=== PATIENT | female | born 1970 | race Caucasian/White ===

== ENCOUNTER 2023-02-14 09:34 | Inpatient (IN) | payer BC ==
[~2023-02-14] VITALS: Ht 160 cm; Wt 163.8 kg
[2023-02-14] MEDS ORDERED: diphenhydrAMINE 25 MG TAB (BENADRYL) PO PRN (13:00)
[2023-02-14] MEDS ORDERED: ALPRAZolam 0.25 MG (XANAX) TAB PO PRN (13:00)
[2023-02-14] MEDS ORDERED: MELATONIN 3 MG TABLET PO PRN (13:00)
[2023-02-14] MEDS ORDERED: BISACODYL 10 MG SUPP (DULCOLAX) PR PRN (13:00)
[2023-02-14] MEDS ORDERED: DOCUSATE SODIUM 100 MG (COLACE) CAP PO PRN (13:00)
[2023-02-14] MEDS ORDERED: FLEET ENEMA ADULT 1 EA BTL PR PRN (13:00)
[2023-02-14] MEDS ORDERED: CALCIUM CARBONATE 500 MG (TUMS) TAB.CHEW PO PRN (13:00)
[2023-02-14] MEDS ORDERED: guaiFENesin/CODEINE (ROBITUSSIN AC) 10ML UDC PO PRN (13:00)
[2023-02-14] MEDS ORDERED: LOPERAMIDE 2 MG (IMODIUM) TABLET PO PRN (13:00)
[2023-02-14] MEDS ORDERED: LACTULOSE SYRUP 10GM/15ML (ENULOSE) 30ML UDC PO PRN (13:00)
--- NOTE | 2023-02-14 13:01 | PM&R Post Admission Assessment ---
PM&R HP Date of Visit: Feb 14, 2023 Time of Visit: 19:00 History of Present Illness CC: Debility following hepatic encephalopathy episode HPI: This is a 52yoWF clinic patient of liver transplant department who presents to ARU from [facility] in [place] via EMS following a long stay in acute care due to DAVID from hypovolemia and hyponatremia with septic shock from integumentary wounds requiring pressor therapy. Apparently she is on the liver transplant list. She has a long history of SALCIDO causing cirrhosis. She did have an episode of AF RVR converted to NSR 02/06 but remains on Coumadin for CVA PPx. Patient will remain on Kelfex to complete abx for bacteremia. Currently she has no pain. CPAP will be brought by family in [place] and she lives alone in [place]. 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 Past Gnsuibb-Impfpe-Imkviu Hx Past Med/Social Hx: Reviewed Nursing Past Med/Soc Hx, Reviewed and Corrections made Patient Social History Marrital Status: single Employed/Student: employed Alcohol Use: Denies Use Smoking Status: Never a Smoker Past Medical History Respiratory: Sleep Apnea Currently Using CPAP: Yes Currently Using BIPAP: No Cardiac: Atrial Fibrillation, High Cholesterol, Hypertension Genitourinary: Renal Failure Gastrointestinal: Cirrhosis Musculoskeletal: Arthritis, Chronic Back Pain Endocrine: Diabetes, Insulin dep PM&R Allergy/Meds/Data Review Allergies Coded Allergies: No Allergy Information Available (Unverified , 02/14/23) Home Medications Scheduled Bumetanide (Bumetanide), 1 MG PO DAILY, (Reported) Citalopram Hydrobromide (Citalopram HBr), 20 MG PO DAILY, (Reported) Dulaglutide (Trulicity), 3 MG SQ WEEK, (Reported) Insulin Aspart (Insulin Aspart), 4 UNIT SQ AC, (Reported) Insulin Determir (Levemir), 12 UNITS SQ HS, (Reported) Lactulose (Lactulose), 30 ML PO DAILY, (Reported) Levothyroxine Sodium (Levothyroxine Sodium), 112 MCG PO DAILY, (Reported) Metoprolol Tartrate (Metoprolol Tartrate), 12.5 MG PO BID, (Reported) Midodrine HCl (Midodrine HCl), 10 MG PO Q8H, (Reported) Pantoprazole Sodium (Pantoprazole Sodium), 40 MG PO DAILY BEFORE BREAKFAST, (Reported) Rifaximin (Xifaxan), 550 MG PO Q12H, (Reported) Spironolactone (Spironolactone), 150 MG PO DAILY, (Reported) Warfarin Sodium (Warfarin Sodium), 2 MG PO DAILY, (Reported) Scheduled PRN Acetaminophen (Tylenol 8 Hour), 650 MG PO Q6H PRN for PAIN-MILD (1-4), (Reported ) Current Medications Current Medications Reviewed Review of Systems Constitutional: see HPI, dizziness, malaise, weakness EENTM: no symptoms reported Respiratory: no symptoms reported Cardiovascular: no symptoms reported Gastrointestinal: no symptoms reported Physical Exam Physical Exam Vital Signs Capillary Refill : Height, Weight, BMI Height: '" Weight: lbs. oz. kg; BMI Method: General Appearance: No Apparent Distress, WD/WN, Chronically ill, Obese, Other (jaundiced) Eyes: Bilateral Eye Normal Inspection, Bilateral Eye PERRL HEENT: PERRL/EOMI, Normal ENT Inspection, Pharynx Normal Neck: Full Range of Motion, Normal Inspection, Non Tender, Supple, Carotid Bruit Respiratory: Chest Non Tender, Lungs Clear, Normal Breath Sounds, No Accessory Muscle Use, No Respiratory Distress Cardiovascular: Regular Rate, Rhythm, No Edema, No Gallop, No JVD, No Murmur, Normal Peripheral Pulses Gastrointestinal: Normal Bowel Sounds, No Organomegaly, No Pulsatile Mass, Non Tender, Soft Back: Normal Inspection, No CVA Tenderness, No Vertebral Tenderness Extremity: Normal Capillary Refill, Normal Inspection, Normal Range of Motion, Non Tender, No Calf Tenderness, No Pedal Edema Neurologic/Psychiatric: Alert, Oriented x3, electrical prospecting operator II-XII Norm as Tested, Abnormal Gait, Depressed Affect, Motor Weakness (generalized) Skin: Normal Color, Warm/Dry Lymphatic: No Adenopathy PM&R Medical Assessment & Plan REHAB/MEDICAL ASSESSMENT AND PLAN: REHAB IMPAIRMENT GROUP: Hepatic encephalopathy ETIOLOGIC DIAGNOSIS: Hepatic encephalopathy The comorbidities that impact the patients function and/or functional outcome by: ESLD on transplant list, AF, on Coumadin, DAVID recently, DM insulin dependent REHAB PLAN: The patient is being admitted to our comprehensive inpatient rehabilitation facility and can tolerate the intensity of service consisting of at least: 180 minutes of therapy a day, 5 out of 7 days a week Rehab treatment will consist of: PT OT will focus on regaining function with use of AD in order to regain stamina with ambulation along with ADL's in order to return home The patient/family has a good understanding of our discharge process and will benefit from an interdisciplinary inpatient rehabilitation program. The patient has potential to make improvement and is in need of at least two of the following multidisciplinary therapies including but not limited to physical, occupational, speech, and prosthetics and orthotics. Additionally the patient will need services from respiratory, nutritional services, wound care, psychology, etc. (Customize this to each patient). Given the patients complex condition and risk of further medical complications, rehabilitation services cannot be safely or effectively provided at a lower level of care such as a assisted facility. BARRIERS TO DISCHARGE: Lives alone ESTIMATED LOS: 14 days DISPOSITION: Home RELEVANT CHANGES SINCE PREADMISSION SCREENING: I have compared the patients medical and functional status at the time of the preadmission screening and there are: no change PROGNOSIS: Fair REHABILITATION GOALS: 1. PT OT will focus on regaining function with use of AD in order to regain stamina with ambulation along with ADL's in order to return home All the above goals were reviewed with the patient and he/she is in agreement. By signing this document, I acknowledge that I have personally performed a full physical examination on this patient within 24 hours of admission to this inpatient rehabilitation facility and have determined the patient to be able to tolerate the above course of treatment at an intensive level for a reasonable period of time. I will be completing a detailed individualized Plan of Care for this patient by day #4 of the patients stay based upon the Preadmission Screen, the Post-Admission Evaluation, and the therapy evaluations. 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
[2023-02-14] MEDS ORDERED: BUME1TAB8 PO (16:27)
[2023-02-14] MEDS ORDERED: PANT40TA52 PO (16:27)
[2023-02-14] MEDS ORDERED: CITA20TA9 PO (16:27)
[2023-02-14] MEDS ORDERED: RIFA550T PO (16:27)
[2023-02-14] MEDS ORDERED: DULA3PEN SQ (16:27)
[2023-02-14] MEDS ORDERED: WARF-47 PO (16:27)
[2023-02-14] MEDS ORDERED: SPIR100T4 PO (16:27)
[2023-02-14] MEDS ORDERED: INSU100V42 SQ (16:27)
[2023-02-14] MEDS ORDERED: LACT20SO2 PO (16:27)
[2023-02-14] MEDS ORDERED: MIDO10TA PO (16:27)
[2023-02-14] MEDS ORDERED: METO-333 PO (16:27)
[2023-02-14] MEDS ORDERED: LEVO112T55 PO (16:27)
[2023-02-14] MEDS ORDERED: ACET-2840 PO (16:27)
[2023-02-14] MEDS ORDERED: INSU100V5 SQ (16:27)
--- OUTSIDE RECORDS SUMMARY | 2023-02-14 16:36 | XMS REPORT ---
Author Author [facility] Organization [facility] Address Unknown Phone Unavailable Care Team Providers Care Dope Heater Name Role Phone George Vidales MD [phone] Blanca Amos RATE EXAMINER PCP Transplant Episode Liver Candidate [facility] ([place], [place]) - [facility] Referred on 07/25/2021 Marked as Deferred on 08/11/2021 Reason: LTC -Comorbidities Liver CoordinatorTrina Salinas RN Phone: N/A Fax: N/A Email: N/A Expires Exceptions/Reasons Score Value Updated CPRA Not available UNOS MELD Not available MELD (Calc) 22 01/01/2023 Fax Email Name Role Phone N/A N/A Trina Salinas, Liver Coordinator N/A RN [phone] [email or web address] Adriana Anthony Nurse Practitioner [phone] JASON Lyman [phone] N/A Shlomo Zhao, Balance Bridge Inspector [phone] Pre-Transplant Referred: 07/25/2021
--- OUTSIDE RECORDS SUMMARY | 2023-02-14 16:36 | XMS REPORT | Clinical Summary ---
Author Author [facility] Organization [facility] Address Unknown Phone Unavailable Care Team Providers Care Storage Architect Name Role Phone George Vidales MD [phone] Blanca Amos BI TRI OPERATOR PCP Source Comments Some departments are not documenting in the electronic medical record. If you d o not see the information that you expected, contact Release of Information in [facility] Information Management department at [phone] for further assistan ce in locating additional records.[facility] Allergies No known active allergies Medications End Date Status Medication Sig Dispensed Refills Start Date Active bumetanide (BUMEX) 2 mg Take 2 mg by 0 tablet mouth twice daily. Active cholecalciferol (VITAMIN Take 5,000 0 D-3) 1,000 units tablet Units by mouth daily. Active citalopram (CELEXA) 20 mg Take 20 mg by 0 tablet mouth daily. Active insulin aspart Inject 8units 0 (niacinamide) (FIASP under the FLEXTOUCH U-100 INSULIN) skin daily 100 unit/mL (3 mL) with injectable PEN breakfast, 8 units daily with lunch and 8 units daily with dinner. Active insulin detemir U-100 Inject 12 0 (LEVEMIR FLEXTOUCH U-100 Units under INSULN) 100 unit/mL (3 the skin at mL) injection pen bedtime daily. Active ondansetron HCL (ZOFRAN) Take 4 mg by 0 4 mg tablet mouth every 6 hours as needed for Nausea or Vomiting. Active zinc sulfate 220 mg (50 Take 220 mg 0 mg elemental zinc) by mouth capsule twice daily. Active enoxaparin (LOVENOX) 100 Inject 1 mL 26 each 0 0 mg syringe under the 2 skin every 12 hours. Active dulaglutide (TRULICITY) 3 Inject 3 mg 0 mg/0.5 mL injection pen under the skin every 7 days. Active levothyroxine (SYNTHROID) Take 112 mcg 0 112 mcg tablet by mouth daily 30 minutes before breakfast. Active rifAXIMin (XIFAXAN) 550 Take 550 mg 0 mg tablet by mouth every 12 hours. Active potassium chloride SR Take one 180 tablet 1 05/26 (K-DUR) 20 mEq tablet by 2 tabletIndications: mouth twice hypokalemia prevention daily. Take with a meal and a full glass of water. Indications: prevention of low potassium in the blood Active lactulose (GENERLAC) 10 Take 45 mL by 1892 mL 11 gram/15 mL oral mouth twice 2 solutionIndications: daily. hepatic encephalopathy Titrate to 3-4 BMs/day Indications: impaired brain function due to liver disease Active spironolactone Take 1.5 90 tablet 1 (ALDACTONE) 100 mg tablets by 2 tabletIndications: edema mouth daily. due to hepatic cirrhosis Take with food. Indications: accumulation of fluid caused by cirrhosis of the liver Active warfarin (COUMADIN) 1 mg Take one 90 tablet 1 1 tablet tablet by 2 mouth daily. Patient to take 3mg MWF, and 2mg T,TH, Sat, Sun. (Patient has 2mg tablets at home) Active warfarin (COUMADIN) 2 mg Take one 30 tablet 3 0 tablet tablet by 3 mouth daily. 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 (HCC); Cirrhosis of liver with ascites, unspecified hepatic cirrhosis type (HCC) 01/07/2023 Orders Only Transplant Surgery Trina Salinas RN Other cirrhosis of liver (HCC) (Primary Dx); 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 (HCC) 01/02/2023 Orders Only Transplant Surgery Cinthia Wilhelm MA 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 (HCC); Other cirrhosis of liver (HCC); Cirrhosis of liver with ascites, unspecified hepatic cirrhosis type (HCC) 01/02/2023 Orders Only Transplant Surgery Jorge L Butler MD Portal vein thrombosis (Primary Dx) 01/01/2023 Orders Only Oncology Jorge L Butler MD 12/18/2022 Orders Only Oncology Jorge L Butler MD 12/12/2022 Refill Oncology from Last 3 Months Immunizations Name Administration Dates Next Due Flu Vaccine Quadrivalent 11/03/2021, 09/05/2020 Recombinant =>18 YO PF Flu vaccine, inj 09/05/2020 unspecified (Historical) HEPATITIS B vaccine, 05/14/2016 unspecified (Historical) MMR Vaccine 04/11/2006 Pneumococcal 10/12/2016 Vaccine(13-[facility]/immunocompromised adult) Pneumococcal vaccine, 10/12/2016 unspecified formulation Tdap Vaccine 05/14/2016 Surgical History Surgery Date Site/Laterality Comments HX CHOLECYSTECTOMY 11/25/1998 - 12/25/1998 HX LITHOTRIPSY from [id number] totoal of 8 BREAST SURGERY 11/25/2008 - breast debreavement for spider bite 11/24/2009 TUNNELED VENOUS PORT 11/25/2015 - PLACEMENT 11/24/2016 COLONOSCOPY 02/23/2021 N/A COLONOSCOPY ARELI GNOSTIC WITH SPECIMEN COLLECTION BY BRUSHING/ WASHING - FLEXIBLE performed by Shlomo Zhao MD at [facility] COLONOSCOPY 02/23/2021 COLONOSCOPY WITH SN ARE REMOVAL TUMOR/ POLYP/ OTHER LESION performed by Shlomo Zhao MD at [facility] Medical History Medical History Date Comments Hypothyroid Splenomegaly Edema leg Cirrhosis (HCC) of liver Hx of blood clots in the lungs Thrombocytopenia (HCC) Type II diabetes mellitus (HCC) Hypertension Social History Date Tobacco Use Types Packs/Day Years Used Smoking Tobacco: Never Smokeless Tobacco: Never Tobacco Cessation: Counseling Given: Yes Comments Alcohol Use Standard Drinks/Week Not Currently 0 (1 standard drink = 0.6 o z pure alcohol) Sex Assigned at Date Recorded Female 07/18/2020 8:13 AM CDT Obstetrics History Last Filed Vital Signs Reading Time Taken Comments Vital Sign 110/73 06/13/2022 2:08 PM CDT Blood Pressure 92 06/13/2022 2:08 PM CDT Pulse 36.7 C (98.1 F) 09/29/2021 1:31 PM CDT Temperature 18 07/06/2021 1:17 PM CDT Respiratory Rate 97% 06/13/2022 2:08 PM CDT Oxygen Saturation - - Inhaled Oxygen Concentration 162.2 kg (357 lb 9.6 oz) 06/13/2022 2:08 PM CDT Weight 160 cm (5' 3") 06/13/2022 2:08 PM CDT Height 63.35 06/13/2022 2:08 PM CDT Body Mass Index Plan of Treatment Health Maintenance Due Date Last Done Comments HIV SCREENING 1984 PHYSICAL (COMPREHENSIVE) 1987 EXAM CERVICAL CANCER SCREENING 1990 BREAST CANCER SCREENING 2009 SHINGLES RECOMBINANT 2019 VACCINE (1 of 2) COVID-19 VACCINE (3 - 06/01/2021 04/06/2021, Booster for Moderna 03/09/2021 series) DEPRESSION SCREENING 11/25/2022 04/02/2022 DTAP/TDAP VACCINES (2 - 05/14/2026 05/14/2016 Td or Tdap) COLORECTAL CANCER 02/23/2031 02/23/2021, SCREENING 02/23/2021, 02/23/2021 HEPATITIS C SCREENING Completed 12/27/2020 INFLUENZA VACCINE Completed 10/25/2022, 11/03/2021, 09/05/2020, Additional history exists Goals Goal Patient Associated Recent Progress Patient-Stat Aut hor Goal Type Problems ed? Resume work [facility] On track (09/27/2021 Yes Mary Muñoz, 2:07 PM CDT) RN Note: Go to work and get back to normal Medical Devices Device Identifier Shelf Expiration Date Model / Serial / L ot Implanted Type Area Manufactur er [id number] / / [id number] Ct Injectable Port Port BARD Implanted: 05/01/2017 by PARTH Huertas MD (Quantity not on file) [employer] Description: CT INJECTABLE PORT verified by product ID card. CT 5ml/sec, max 300psi, MRI Conditional. - LWRN Procedures Comments Procedure Name Priority Date/Time Associated Diag nosis COMPREHENSIVE METABOLIC Routine 01/01/2023 Liver cirrhosis secondary PANEL 11:42 AM PLASTICS ENGINEERING TEACHER to SALCIDO (HCC) Other cirrhosis of liver (HCC) Cirrhosis of liver with ascites, unspecified hepatic cirrhosis type (HCC) PROTIME INR (PT) Routine 01/01/2023 Liver cirrhos is secondary 11:42 AM PLASTICS ENGINEERING TEACHER to SALCIDO (HCC) Other cirrhosis of liver (HCC) Cirrhosis of liver with ascites, unspecified hepatic cirrhosis type (HCC) from Last 3 Months Results * (ABNORMAL) PROTIME INR (PT) (01/01/2023 11:42 AM PLASTICS ENGINEERING TEACHER) Pathologist Signature Component Value Ref Test Method Analysis Performed A t Range Time INR 2.6 (H) 0.8 - [facility] 1.5 Protime 37.00 (H) 18.90 - [facility] 24.90 Anatomical Location / Laterality Collection Method / Volume Moises ection Time Received Time Specimen (Source) BLOOD / Unknown 01/01/2023 11:42 AM PLASTICS ENGINEERING TEACHER Narrative [facility] - 01/02/2023 12:00 AM PLASTICS ENGINEERING TEACHER Outside Lab Verified by Ricardo Hahn on 01/03/2023. Adriana Lyman LABORATORY ORDERABLES SURVEY INTERVIEWER-BI TRI OPERATOR City/State/ZIP Code Phone Number Performing Address Organization [facility] * (ABNORMAL) COMPREHENSIVE METABOLIC PANEL (01/01/2023 11:42 AM PLASTICS ENGINEERING TEACHER) Pathologist Signature Component Value Ref Test Method Analysis Performed A t Range Time Sodium 137 mmol/L [facility] CO2 32.1 (H) 21.0 - [facility] 32.0 Potassium 4.0 [facility] Chloride 100 [facility] Glucose 221 (H) 65 - 95 [facility] Blood Urea Nitrogen 7 [facility] Creatinine 0.73 mg/dl [facility] eGFR 89 [facility] Total Protein 6.9 [facility] Albumin 2.5 (L) 3.4 - [facility] 5.0 ALT (SGPT) 30 [facility] AST (SGOT) 53 (H) 19 - 43 [facility] Alk Phosphatase 183 (H) 50 - 136 [facility] E Calcium 8.0 (L) 8.5 - [facility] 10.1 Total Bilirubin 3.30 (H) 0.00 - [facility] E 1.00 mg/dL Anatomical Location / Laterality Collection Method / Volume Moises ection Time Received Time Specimen (Source) BLOOD / Unknown 01/01/2023 11:42 AM PLASTICS ENGINEERING TEACHER Narrative [facility] - 01/02/2023 12:00 AM PLASTICS ENGINEERING TEACHER Outside Lab Verified by Ricardo Hahn on 01/03/2023. Adriana Lyman LABORATORY ORDERABLES SURVEY INTERVIEWER-BI TRI OPERATOR City/State/ZIP Code Phone Number Performing Address Organization [facility] from Last 3 Months Insurance Type Payer Benefit Subscriber ID Effective Phone Address Plan / Dates Group PPO BCBS [facility] [id number] 2019-P [phone] [address] [place] [address] [id number] Advance Directives Date Inactivated Comments Code Status Date Activated 09/29/2021 6:15 PM Full Code 09/26/2021 8:06 PM Comments Question Answer Provider has No, discussion not necessar y based on Dx discussed Code Status w/Patient or Family? Care Teams Start Date End Date Storage Architect Relationship Specialty 01/02/23 Blanca Amos, BI TRI OPERATOR PCP - General Nurse [address] [place] [address] , Family 12/29/20 George Vidales MD [facility] [address] [place] [address]
--- OUTSIDE RECORDS SUMMARY | 2023-02-14 16:36 | XMS REPORT | Encounter Summary ---
Author Author [facility] Organization [facility] Address Unknown Phone Unavailable Care Team Providers Care Chief Of Hospital Medicine Name Role Phone George Vidales MD [phone] Rod Caraballo MD PCP Encounter Details Care Team Description Date Type Department Jorge L Butler MD [address] [facility] [place] [address] Portal vein thrombosis (Primary Dx) 01/01/2023 Orders Only Oncology: [facility] [address] [place] [address] Social History Date Tobacco Use Types Packs/Day Years Used Smoking Tobacco: Never Smokeless Tobacco: Never Comments Alcohol Use Standard Drinks/Week Not Currently 0 (1 standard drink = 0.6 o z pure alcohol) Sex Assigned at Date Recorded Female 07/18/2020 8:13 AM CDT documented as of this encounter Functional Status Date of Assessment Functional Status Response 04/02/2022 Does the patient have a hearing impairment: No 04/02/2022 Does the patient have a visual impairment: Yes 04/02/2022 Does the patient have impaired ambulation: Yes 04/02/2022 Does the patient have an activity of daily living No (ADL) impairment: 04/02/2022 Does the patient have an instrumental activity of No daily living (IADL) impairment: Date of Assessment Cognitive Status Response 04/02/2022 Does the patient have a cognitive impairment: No documented as of this encounter Plan of Treatment Order Schedule Name Type Priority Associated Diag noses Once a Week Auto for 50 Occurrences star ting 01/01/2023 until 07/01/2024 PROTIME INR (PT) Lab Routine Portal vein t hrombosis documented as of this encounter Goals Goal Patient Associated Recent Progress Patient-Stat Aut hor Goal Type Problems ed? Resume work Hospital On track (09/27/2021 Yes Mary Muñoz, 2:07 PM CDT) RN Note: Go to work and get back to normal documented as of this encounter Visit Diagnoses Diagnosis Portal vein thrombosis - Primary documented in this encounter Additional Health Concerns Noted Time Assessment 04/02/2022 12:56 PM CDT PHQ-9 Depression Total Score: 12 07/04/2022 3:05 PM CDT A fall risk assessment has been complet ed for the patient 04/02/2022 12:56 PM CDT PHQ-2 Depression Total Score: 3 documented as of this encounter Care Teams Start Date End Date Chief Of Hospital Medicine Relationship Specialty 05/03/22 01/01/23 Rod Caraballo MD PCP - General [address] [address] 12/29/20 George Vidales MD [facility] [address] [place] [address] documented as of this encounter
--- OUTSIDE RECORDS SUMMARY | 2023-02-14 16:36 | XMS REPORT | Encounter Summary ---
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 Resume work [facility] (09/27/2021 Yes Mary Muñoz, 2:07 PM CDT) RN Note: Go to work and get back to normal documented as of this encounter Procedures Comments Procedure Name Priority Date/Time Associated Diag nosis PROTIME INR (PT) Routine 01/01/2023 Liver cirrhos is secondary 11:42 AM UNCRATER to SALCIDO (HCC) Other cirrhosis of liver (HCC) Cirrhosis of liver with ascites, unspecified hepatic cirrhosis type (HCC) COMPREHENSIVE METABOLIC Routine 01/01/2023 Liver cirrhosis secondary PANEL 11:42 AM UNCRATER to SALCIDO (HCC) Other cirrhosis of liver (HCC) Cirrhosis of liver with ascites, unspecified hepatic cirrhosis type (HCC) documented in this encounter Results * (ABNORMAL) COMPREHENSIVE METABOLIC PANEL (01/01/2023 11:42 AM UNCRATER) Pathologist Signature Component Value Ref Test Method [...] (Source) BLOOD / Unknown 01/01/2023 11:42 AM UNCRATER Narrative LABDE INTERFACE - 01/02/2023 12:00 AM UNCRATER Outside Lab Verified by Ricardo Hahn on 01/03/2023. Adriana Lyman LABORATORY ORDERABLES ACCELERATOR SYSTEMS DIRECTOR-FOLLOW UP SPECIALIST City/State/ZIP Code Phone Number Performing Address Organization LABDE INTERFACE * (ABNORMAL) PROTIME INR (PT) (01/01/2023 11:42 AM UNCRATER) Pathologist Signature Component Value Ref Test Method Analysis Performed A t Range Time INR 2.6 (H) 0.8 - LABDE INTERFACE 1.5 Protime 37.00 (H) 18.90 - LABDE INTERFACE 24.90 Anatomical Location / Laterality Collection Method / Volume Moises ection Time Received Time Specimen (Source) BLOOD / Unknown 01/01/2023 11:42 AM UNCRATER Narrative LABDE INTERFACE - 01/02/2023 12:00 AM UNCRATER Outside Lab Verified by Ricardo Hahn on 01/03/2023. 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 (HCC) Other chronic nonalcoholic liver diseas e Cirrhosis of liver with ascites, unspec ified hepatic cirrhosis type (HCC) documented in this encounter Additional Health Concerns Noted Time Assessment 04/02/2022 12:56 PM CDT PHQ-9 Depression Total Score: 12 07/04/2022 3:05 PM CDT A fall risk assessment has been complet ed for the patient 04/02/2022 12:56 PM CDT PHQ-2 Depression Total Score: 3 documented as of this encounter Care Teams Start Date End Date Treasury Accountant Relationship Specialty 01/02/23 Blanca Amos, FOLLOW UP SPECIALIST PCP - General Nurse [place] [address] , Family 12/29/20 George Vidales MD [facility] [address] [place] [address] documented as of this encounter
--- OUTSIDE RECORDS SUMMARY | 2023-02-14 16:36 | XMS REPORT | Encounter Summary ---
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 ascites, unspecified hepatic cirrhosis type (HCC) Expected: 04/07/2023 (Approximate), Expi res: 01/07/2024 COMPREHENSIVE METABOLIC Lab Routine Other cirrhosis of liver PANEL (HCC) 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 documented in this encounter Additional Health Concerns Noted Time Assessment 04/02/2022 12:56 PM CDT PHQ-9 Depression Total Score: 12 07/04/2022 3:05 PM CDT A fall risk assessment has been complet ed for the patient 04/02/2022 12:56 PM CDT PHQ-2 Depression Total Score: 3 documented as of this encounter Care Teams Start Date End Date Structural Test Engineer Relationship Specialty 01/02/23 Blanca Amos, HOME DEPOT REP PCP - General Nurse [place] [address] , Family 12/29/20 George Vidales MD [facility] [address] [place] [address] documented as of this encounter
--- OUTSIDE RECORDS SUMMARY | 2023-02-14 16:36 | XMS REPORT | Encounter Summary ---
Author Author [facility] Organization [facility] Address Unknown Phone Unavailable Care Team Providers Care Computer Aided Design Drafter Name Role Phone George Vidales MD [phone] Rod Caraballo MD PCP Encounter Details Care Team Description Date Type Department Jorge L Butler MD [address] [place] [address] 12/18/2022 Orders Only Oncology: [facility] [address] Social History Date Tobacco Use Types Packs/Day [...] impairment: No documented as of this encounter Ordered Prescriptions Start Date End Date Prescription Sig Dispensed Refills 12/18/2022 warfarin (COUMADIN) 2 mg Take one 30 tablet 3 tablet tablet by mouth daily. documented in this encounter Plan of Treatment Not on filedocumented as of this encounter Goals Goal Patient Associated Recent Progress Patient-Stat Aut hor Goal Type Problems ed? Resume work [facility] (09/27/2021 Yes Toni Mary, 2:07 PM CDT) RN Note: Go to work and get back to normal documented as of this encounter Visit Diagnoses Not on filedocumented in this encounter Discontinued Medications Start Date End Date Medication Sig Discontinue Reason 06/04/2022 12/18/2022 warfarin (COUMADIN) 2 mg Take 4 mg on Reorder tablet Saturday/ Saturday/ ida and 3 mg on all other days documented as of this encounter Additional Health Concerns Noted Time Assessment 04/02/2022 12:56 PM CDT PHQ-9 Depression Total Score: 12 07/04/2022 3:05 PM CDT A fall risk assessment has been complet ed for the patient 04/02/2022 12:56 PM CDT PHQ-2 Depression Total Score: 3 documented as of this encounter Care Teams Start Date End Date Computer Aided Design Drafter Relationship Specialty 05/03/22 01/01/23 Rod Caraballo MD PCP - [address] [address] 12/29/20 George Vidales MD [facility] [address] [place] [address] documented as of this encounter
--- OUTSIDE RECORDS SUMMARY | 2023-02-14 16:36 | XMS REPORT | Encounter Summary ---
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
[2023-02-14 19:27] VITALS: BP 90/52
[2023-02-14] MEDS: polyethylene glycoL POWDER 17 GM (MIRALAX) PACK PO SCH (20:28)
[2023-02-14] MEDS: SENNA W/DOCUSATE (SENOKOT S) TABLET PO SCH (20:52)
[2023-02-14] MEDS: DOCUSATE SODIUM 100 MG (COLACE) CAP PO SCH (20:52)
[2023-02-14] MEDS ORDERED: NON-FORMULARY MEDICATION 1 EA EA (Dulaglutide (Trulicity) 3 MG) SQ SCH (21:00)
[2023-02-14] MEDS: meTOprolol TARTRATE 25 MG (LOPRESSOR) TABLET PO SCH (22:33)
[2023-02-14] MEDS: MIDODRINE 10 MG (PROAMATINE) TAB PO SCH (22:33)
[2023-02-14] MEDS: RIFAXIMIN 550 MG TABLET (XIFAXAN) PO SCH (22:33)
[2023-02-15] MEDS: LEVOTHYROXINE 112 MCG (LEVOTHROID) TAB PO SCH (05:46)
[2023-02-15] MEDS: PANTOPRAZOLE 40 MG (PROTONIX) TAB PO SCH (05:46)
[2023-02-15] MEDS: MIDODRINE 10 MG (PROAMATINE) TAB PO SCH ×4 (05:46→21:45)
[2023-02-15 06:01] LABS: HEMOGLOBIN 8.5 g/dL (11.5-16.0); LYMPHOCYTES # (AUTO) 0.8 10^3/uL (1.0-4.0); MEAN CORPUSCULAR VOLUME 112 fL (80-99); NEUTROPHILS # (AUTO) 2.6 10^3/uL (1.8-7.8)
[2023-02-15 06:03] LABS: BASOPHILS % (AUTO) 1 % (0-10); EOSINOPHILS # (AUTO) 0.1 10^3/uL (0.0-0.3); EOSINOPHILS % (AUTO) 3 % (0-10); HEMATOCRIT 25 % (35-52); INR 2.5 (0.8-1.4); LYMPHOCYTES % (AUTO) 20 % (12-44); MEAN CORPUSCULAR HEMOGLOBIN 38 pg (25-34); MEAN CORPUSCULAR HGB CONC 34 g/dL (32-36); MEAN PLATELET VOLUME 11.3 fL (9.0-12.2); MONOCYTES # (AUTO) 0.4 10^3/uL (0.0-1.0); MONOCYTES % (AUTO) 11 % (0-12); NEUTROPHILS % (AUTO) 65 % (42-75); PROTHROMBIN TIME PATIENT 27.7 SEC (12.2-14.7)
[2023-02-15 06:09] LABS: ALBUMIN 2.8 GM/DL (3.2-4.5); BILIRUBIN,TOTAL 10.2 MG/DL (0.1-1.0); CALCIUM 9.5 MG/DL (8.5-10.1); CREATININE SERUM 2.04 MG/DL (0.60-1.30); POTASSIUM 4.2 MMOL/L (3.6-5.0); TOTAL PROTEIN 5.5 GM/DL (6.4-8.2)
[2023-02-15 06:13] LABS: PLATELET COUNT 37 10^3/uL (130-400); SMEAR SCAN COMMENT YES
[2023-02-15] MEDS: inSUlin ASPART (NovoLOG) 1 UNIT/0.01 ML (CHARGE PER UNIT) SQ SCH ×3 (06:33→17:16)
--- NOTE | 2023-02-15 06:38 | PM&R Progress Note ---
Subjective HPI/CC On Admission Date Seen by Provider: Feb 15, 2023 Time Seen by Provider: 12:00 Subjective/Events-last exam 02/15/2023: Had a good night Ambulating to the wheelchair and transfers are good TB 10 Still jaundiced Creat 2 Monitoring closely Review of Systems General: Fatigue, Malaise Objective Exam Vital Signs Vital Signs Date Time Temp Pulse Resp B/P (MAP) Pulse Ox O2 Delivery O2 Flow Rate FiO2 02/15/23 09:00 Room Air 02/15/23 07:55 36.5 54 18 97/57 (70) 95 Capillary Refill : General Appearance: No Apparent Distress, WD/WN, Chronically ill, Obese, Other (jaundiced) HEENT: PERRL/EOMI, Normal ENT Inspection, Pharynx Normal Neck: Full Range of Motion, Normal Inspection, Non Tender, Supple, Carotid Bruit Respiratory: Chest Non Tender, Lungs Clear, Normal Breath Sounds, No Accessory Muscle Use, No Respiratory Distress Cardiovascular: Regular Rate, Rhythm, No Edema, No Gallop, No JVD, No Murmur, Normal Peripheral Pulses Gastrointestinal: Normal Bowel Sounds, No Organomegaly, No Pulsatile Mass, Non Tender, Soft Back: Normal Inspection, No CVA Tenderness, No Vertebral Tenderness Extremity: Normal Capillary Refill, Normal Inspection, Normal Range of Motion, Non Tender, No Calf Tenderness, No Pedal Edema Neurologic/Psychiatric: Alert, Oriented x3, actuarial technician II-XII Norm as Tested, Abnormal Gait, Depressed Affect, Motor Weakness (generalized) Skin: Normal Color, Warm/Dry Lymphatic: No Adenopathy Results/Procedures Lab Laboratory Tests 02/15/23 05:20 Patient resulted labs reviewed. FIM Transfers Therapy Code Descriptions/Definitions Functional Vincent Measure: 0=Not Assessed/NA 4=Minimal Assistance 1=Total Assistance 5=Supervision or Setup 2=Maximal Assistance 6=Modified Vincent 3=Moderate Assistance 7=Complete IndependenceSCALE: Activities may be completed with or without assistive devices. 7-Gefcgvnrkr-dkymsuy completes the activity by him/herself with no assistance from a helper. 5-Set-up or Clean-up Assistance-helper sets up or cleans up; patient completes activity. [place] assists only prior to or following the activity. 4-Supervision or Touching Assistance-helper provides verbal cues and/or touching/steadying and/or contact guard assistance as patient completes activity. Assistance may be provided throughout the activity or intermittently. 3-Partial/Moderate Assistance-helper does LESS THAN HALF the effort. [place] lifts, holds or supports trunk or limbs, but provides less than half the effort. 2-Substantial/Maximal Assistance-helper does MORE THAN HALF the effort. [place] lifts or holds trunk or limbs and provides more than half the effort. 0-Tzhbbmwqb-ctlpvd does ALL the effort. Patient does none of the effort to complete the activity. Or, the assistance of 2 or more helpers is required for the patient to complete the activity. If activity was not attempted, code reason: 7-Patient Refused. 9-Not Applicable-not attempted and the patient did not perform the activity before the current illness, exacerbation or injury. 10-Not Attempted due to Environmental Limitations-(lack of equipment, weather restraints, etc.). 88-Not Attempted due to Medical Conditions or Safety Concerns. 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
--- NOTE | 2023-02-15 07:45 | Occupational Therapy Eval ---
OT Evaluation-General/PLF Medical Diagnosis Admission Date Feb 14, 2023 at 16:15 Medical Diagnosis: Hepatic Encephalopathy Onset Date: Feb 14, 2023 Therapy Diagnosis Therapy Diagnosis: decreased ADL status Precautions Precautions/Isolations: Fall Prevention, Standard Precautions, Pressure Ulcer Referral Physician: Heather Conway Reason: Evaluation/Treatment Medical History Additional Medical History Respiratory: Sleep Apnea Currently Using CPAP: Yes Currently Using BIPAP: No Cardiac: Atrial Fibrillation, High Cholesterol, Hypertension Genitourinary: Renal Failure Gastrointestinal: Cirrhosis Musculoskeletal: Arthritis, Chronic Back Pain Endocrine: Diabetes, Insulin dep Current History ARU from [place] in [place] via EMS following long acute care stay due to DAVID from hypobolemia and hyponatremia with septic shock from integumentary wounds. Social History Home: Single Level Current Living Status: Alone Entry Into Home: Ramp ADL-Prior Level of Function SCALE: Activities may be completed with or without assistive devices. 9-Iilgapwdiy-btnrhfw completes the activity by him/herself with no assistance from a helper. 5-Set-up or Clean-up Assistance-helper sets up or cleans up; patient completes activity. [place] assists only prior to or following the activity. 4-Supervision or Touching Assistance-helper provides verbal cues and/or touching/steadying and/or contact guard assistance as patient completes activity. Assistance may be provided throughout the activity or intermittently. 3-Partial/Moderate Assistance-helper does LESS THAN HALF the effort. [place] lifts, holds or supports trunk or limbs, but provides less than half the effort. 2-Substantial/Maximal Assistance-helper does MORE THAN HALF the effort. [place] lifts or holds trunk or limbs and provides more than half the effort. 7-Uhhqxfaii-mdyezp does ALL the effort. Patient does none of the effort to complete the activity. Or, the assistance of 2 or more helpers is required for the patient to complete the activity. If activity was not attempted, code reason: 7-Patient Refused. 9-Not Applicable-not attempted and the patient did not perform the activity befo re the current illness, exacerbation or injury. 10-Not Attempted due to Environmental Limitations-(lack of equipment, weather re straints, etc.). 88-Not Attempted due to Medical Conditions or Safety Concerns. ADL PLOF Comments Pt IND with ADLs and functional mobility at PLOF, no AD. 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 OT Current Status Subjective Pt agreeable to OT Tx, denies pain. Mental Status/Objective Patient Orientation: Normal For Age Current Glasses/Contacts: No Hearing Aids: No Dentures/Partials: No Hand Dominance: Right Upper Extremity ROM BUE shoulder flexion to approx 160 degrees Upper Extremity Coordination WFL Upper Extremity Sensation WFL Upper Extremity Strength BUE grossly 3+/5 ADL-Treatment Eating (QC): 5 (assist opening milk carton) Oral Hygiene (QC): 5 (set up) Shower/Bathe Self (QC): 1 (Assist x2 in stand to wash buttocks. Assistance washing BLEs lower legs/feet.) Upper Body Dressing (QC): 3 (Min A managing shirt down trunk) Lower Body Dressing (QC): 1 (Assist x2 in stand. Assist all parts.) On/Off Footwear (QC): 1 Toileting Hygiene (QC): 1 (Assist x2 in stand, assist all parts.) Other Treatments OT evaluation complete. OT/Pt cotreat due to skill of 2 clinicians required which a rehabilitation caseworker could not perform in order to coordinate UE/LEs, decrease fall risk, and due to pt's limitations in strength, activity tolerance, mobility and transfers. OT focused on UE placement, cues for sequencing and safety and ADLs, PT focused on LE placement, gross overall movement, transfers and mobility. Pt transferred supine to EOB, then transferred to BSC. Pt completed toileting, dressing, and sponge bath, then used FWW to perform functional mobility out of room to w/c. Pt completed functional mobility using FWW on even and uneven surfaces, car transfer, and w/c mobility. Post tx, pt in w/c, left with PT, all needs met. IND rolling using bed rails, Max A sit to supine, min A supine to sit. Min-CGA sit to stand from EOB (cues for UE placement), Min A bed to chair transfer. Min A car transfer. Min-Mod A functional mobility using FWW ( 20', 36'). 30' w/c mobility, min A. Education OT Patient Education: Correct positioning, Energy conservation, Modified ADL techniques, Progress toward Goal/Update tx plan, Purpose of tx/functional activities, Rehab process Teaching Recipient: Patient Teaching Methods: Discussion Response to Teaching: Verbalize Understanding BIMS CAM BIMS Expression of Ideas and Wants: Without Difficulty Understanding Verbal Content: Understands Brief Interview/Mental Status: Yes IRF ALICIA BIMS: IRF ALICIA BIMS Response (Comments) Value Repitition of Three Words Three 3 Recalls Socks Yes, No Cue Required 2 Recalls Blue Yes, No Cue Required 2 Recalls Bed Yes, No Cue Required 2 Year Correct 3 Month Accurate Within 5 Days 2 Day Correct 1 Total [address] No CAM Mental Status Change/Baseline: 0 Inattention: 0 Disorganized thinkin Altered level of consciousness: 0 OT Short Term Goals Short Term Goals Time Frame: Mar 01, 2023 Shower/bathe self: 3 Lower body dressin Putting on/taking off footwear: 3 OT Correction Goals Investigator Cash Shortage Goals Time Frame: Mar 15, 2023 Eating (QC): 6 Oral Hygiene (QC): 6 Toileting Hygiene (QC): 6 Shower/Bathe Self (QC): 6 Upper Body Dressing (QC): 6 Lower Body Dressing (QC): 6 On/Off Footwear (QC): 6 Additional Goals: 1-Demonstrate ADL Tasks, 2-Verbalize Understanding, 3- ImproveStrength/Josie 1=Demonstrate adherence to instructed precautions during ADL tasks. 2=Patient will verbalize/demonstrate understanding of assistive devices/modifications for ADL. 3=Patient will improve strength/tolerance for activity to enable patient to perform ADL's. OT Education/Plan Problem List/Assessment Assessment: Decreased Activ Tolerance, Decreased UE Strength, Impaired Bed Mobility, Impaired Funct Balance, Impaired I ADL's, Impaired Self-Care Skills Discharge Recommendations Plan/Recommendations: Continue POC Treatment Plan/Plan of Care Patient would benefit from OT for education, treatment and training to promote independence in ADL's, mobility, safety and/or upper extremity function for ADL's. Plan of Care: ADL Retraining, Functional Mobility, Group Exercise/Act as Ind, UE Funct Exercise/Act Treatment Duration: Mar 15, 2023 Frequency: At least 5 of 7 days/Wk (IRF) Estimated Hrs Per Day: 1.5 hours per day Agreement: Yes Rehab Potential: Good Time Start Time: 07:35 Stop Time: 09:00 DATE: Feb 15, 2023 Total Time Billed (hr/min): 75 Billed Treatment Time OT evaluation/tx [id number], PT eval [id number], [place] [id number] 1, EVM (10'), ADL 2 (30'), FA 2 (35') KEELY WILLIAMSON OT Feb 15, 2023 07:45
[2023-02-15 07:55] VITALS: BP 97/57
[2023-02-15] MEDS: SENNA W/DOCUSATE (SENOKOT S) TABLET PO SCH ×2 (08:30→21:00)
[2023-02-15] MEDS: LACTULOSE SYRUP 10GM/15ML (ENULOSE) 30ML UDC PO SCH (08:30)
[2023-02-15] MEDS: polyethylene glycoL POWDER 17 GM (MIRALAX) PACK PO SCH ×2 (08:30→21:00)
[2023-02-15] MEDS: DOCUSATE SODIUM 100 MG (COLACE) CAP PO SCH ×2 (08:30→21:00)
[2023-02-15] MEDS: BUMETANIDE 1 MG (BUMEX) TAB PO SCH (08:46)
--- NOTE | 2023-02-15 08:56 | Physical Therapy Evaluation ---
PT Evaluation-General Medical Diagnosis Admission Date Feb 14, 2023 at 16:15 Medical Diagnosis: Hepatic Encephalopathy Onset Date: Feb 14, 2023 Therapy Diagnosis Therapy Diagnosis: Debility, decreased activity tolerance, decreased functional mob & gait Precautions Precautions/Isolations: Fall Prevention, Standard Precautions, Pressure Ulcer Panus wound Weight Bear Status Weight Bearing/Tolerated Weight Bearing/Tolerated Referral Physician: Heather Reason for Referral: Evaluation/Treatment Medical History Pertinent Medical History: Atrial Fib, DM, HTN Additional Medical History s/p hepatic encephalopathy, ES liver disease d/t SALCIDO, morbid obesity, LIZBETH on CPAP, recent DAVID Reviewed History: Yes Social History Home: Single Level Current Living Status: Alone Entry Into Home: Ramp States she could ascend/descend 4 steps with rails, but had difficulty with this task. Prior Prior Level of Function SCALE: Activities may be completed with or without assistive devices. 9-Uiymxtyrrp-sjqybwm completes the activity by him/herself with no assistance from a helper. 5-Set-up or Clean-up Assistance-helper sets up or cleans up; patient completes activity. [place] assists only prior to or following the activity. 4-Supervision or Touching Assistance-helper provides verbal cues and/or touching/steadying and/or contact guard assistance as patient completes activity. Assistance may be provided throughout the activity or intermittently. 3-Partial/Moderate Assistance-helper does LESS THAN HALF the effort. [place] lifts, holds or supports trunk or limbs, but provides less than half the effort. 2-Substantial/Maximal Assistance-helper does MORE THAN HALF the effort. [place] lifts or holds trunk or limbs and provides more than half the effort. 6-Yctovqppf-segccp does ALL the effort. Patient does none of the effort to complete the activity. Or, the assistance of 2 or more helpers is required for the patient to complete the activity. If activity was not attempted, code reason: 7-Patient Refused. 9-Not Applicable-not attempted and the patient did not perform the activity before the current illness, exacerbation or injury. 10-Not Attempted due to Environmental Limitations-(lack of equipment, weather restraints, etc.). 88-Not Attempted due to Medical Conditions or Safety Concerns. Bed Mobility: 6 (with use of bedrail that slips under mattress) Transfers (B,C,W/C): 6 (no device) Gait: 6 (No device) Stairs: 6 (small curbs with railings, ramp to enter home) Wheelchair Mobility: 9 Indoor Mobility (Ambulation): Independent Stairs: Needed Some Help Prior Devices Use: None does have bath bench per OT PT Evaluation-Current Subjective No c/o pain this a.m. States her main limitation is fatigue with upright activity. Also states her (L) hip/leg has "always been a little weaker" than the (R). Pain Section J - Health Conditions 1. Rarely or not at all 2. Occasionally 3. Frequently 4. Almost constantly 8. Unable to answer Pain Effect on Sleep: 1 Pain Interference with Therapy: 1 Pain Interference w/Day-to-Day: 1 Pt/Family Goals Patient wishes to return to her apartment. Objective Patient Orientation: Person, Place, Situation States she was confused but this has cleared to near baseline. Appropriate conversation, answers all questions appropriately. ROM/Strength ROM Lower Extremities limited hip motion due to abdominal girth. Knee flexion/ext WFL. Ankle DF/PF WFL. Strength Lower Extremities Hip flexion (R) 3/5, (L) 3-/5 in limited range due to abdominal girth. Knee extension 4/5, knee flexion 4/5, DF 3-/5 (B), PF 3+/5 (B). Integumentary/Posture Integumentary Panus wound Posture morbid obesity Neuromuscular (Tone, Coordination, Reflexes) Normal tone in LE's Sensory Vision: Functional Hearing: Functional Hand Dominance: Right Sensation Right Lower Extremit: Intact Sensation Left Lower Extremity: Intact Transfers Roll Left & Right (QC): 6 (with bed rail) Sit to Lying (QC): 2 ((A) with LE's) Lying to Sitting/Side of Bed(Q: 3 (Min (A) pulling up on therapist's arm) Sit to Stand (QC): 3 (min-CGA from EOB - air mattress and w/c, needs cues for hand placement.) Chair/Pjc-ej-Xkuiu Xfer(QC): 3 (with FWW) Toilet Transfer (QC): 4 (with FWW. assist for clothing manipulation) Car Transfer (QC): 3 (Min (A) to lift (R) leg into car) Patient on air mattress - deflate seat for sit<>supine. Curb step supplied to patient for foot placement sitting EOB on high bariatric bed to avoid feet dangling off EOB. Gait Does the Patient Walk?: Yes Mode of Locomotion: Both Walk 10 feet (QC): 3 (with FWW, very slow mitchell) Walk 50 ft with 2 Turns(QC): 88 (low activity tolerance does not allow for this distance) Walk 150 ft (QC): 88 (low activity tolerance does not allow for this distance) Walking 10ft/uneven surface-QC: 3 (with FWW) Distance: 20', 36' Gait Assistive Device: FWW Comments/Gait Description c/o arm fatigue, general fatigued with gait . Tends to understep walker at times, forward flexed at waist during gait. Wheelchair Training Does the Pt Use a Wheelchair?: Yes Wheel 50 ft with 2 turns (QC): 3 (Min (A) with UE fatigue, increased time to complete) Wheel 150 ft (QC): 88 (unable to perform due to endurance deficits) Type of Wheelchair: Manual Stairs #of Steps: 0 1 Step (curb) (QC): 3 (FWW to step up onto 2" step/mat, cues to not understep walker when placing it up on mat/"curb") 4 Steps (QC): 88 (activity tolerance does not allow to be completed safely) 12 Steps (QC): 88 (activity tolerance does not allow to be completed safely) Walking Assistive Device: Walker Balance Sitting Static: Good Sitting Dynamic: Good Standing Static: Fair Standing Dynamic: Fair Picking up an Object (QC): 88 (Not safe today with weakness concerns/body habitus) Special Test Comments Gait speed: 6.1m/63 seconds = .10 m/sec = non-functional gait speed Assessment/Needs 52 year old female s/p hospitalization for hepatic encephalopathy with significant endurance deficits and strength deficits that impair mobility/transfers/gait. Patient would benefit from skilled therapy services on ARU for strengthening, balance training, functional mobility/activity and gait training, w/c mobility training, group therapy, safety education and home exercise instruction to maximize function for return home. 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 Time Frame: Mar 08, 2023 Roll Left to Right (QC): 6 Sit to Lying (QC): 6 (with use of bedrail) Lying-Sitting on Side/Bed(QC): 6 (with use of bedrail) Sit to Stand (QC): 6 Chair/Gfr-og-Klfkc Xfer(QC): 6 (with FWW) Toilet/Commode Transfer (QC): 6 Car Transfer (QC): 5 (with FWW) Does the Patient Walk: Yes Walk 10 feet (QC): 6 (with FWW) Walk 10ft-Uneven Surface(QC): 6 (with FWW) Walk 50ft with 2 Turns (QC): 6 (with FWW without rest break) Walk 150 ft (QC): 4 (distance may be limited by endurance deficits) Does the Pt use WC or Scooter?: Yes Wheel 50 feet with 2 turns (QC: 6 Type: Manual Wheel 150 feet: 6 1 Step (curb) (QC): 6 (with FWW) 4 Steps (QC): 4 (with (B) rails) 12 Steps (QC): 9 Picking up an Object (QC): 5 LTG: Patient to demonstrate improved gait speed with FWW of .3 m/sec or better. PT Plan Problem List Problem List: Activity Tolerance, Functional Strength, Safety, Balance, Gait, Transfer, Bed Mobility Treatment/Plan Treatment Plan: Continue Plan of Care Treatment Plan: Bed Mobility, Education, Functional Activity Josie, Functional Strength, Group Therapy, Gait, Safety, Therapeutic Exercise, Transfers Treatment Duration: Mar 08, 2023 Frequency: At least 5 of 7 days/Wk (IRF) Estimated Hrs Per Day: 1.5 hours per day Patient and/or Family Agrees t: Yes Safety Risks/Education Safety Risk Comments: wound care, fall risk Patient Education: Transfer Techniques, Safety Issues Teaching Recipient: Patient Teaching Methods: Demonstration, Discussion Response to Teaching: Verbalize Understanding Discharge Recommendations Therapy Discharge Recommendati: Post Acute PT Equpiment Recommendations-D/C: Front Wheeled Walker, Manual Wheelchair Time Time In: 800 Time Out: 820 DATE: Feb 15, 2023 Total Billed Treatment Time: 20 Total Billed Treatment 10' evaluation, 10' co-treat due to patient's acuity and debility/weakness/endurance deficit from illness requiring assist of 2 skilled staff to address safety with mobility. Sybil Perez PT Feb 15, 2023 08:56
--- NOTE | 2023-02-15 10:12 | Physical Therapy Daily Note ---
PT Daily Note-Current Subjective Patient on BSC with OT upon PT arrival, agreeable to treatment. Pain Section J - Health Conditions 1. Rarely or not at all 2. Occasionally 3. Frequently 4. Almost constantly 8. Unable to answer Pain Effect on Sleep: 1 Pain Interference with Therapy: 1 Pain Interference w/Day-to-Day: 1 Mental Status Patient Orientation: Person Transfers SCALE: Activities may be completed with or without assistive devices. 0-Mrfhvsdsva-uggmwth completes the activity by him/herself with no assistance from a helper. 5-Set-up or Clean-up Assistance-helper sets up or cleans up; patient completes activity. [place] assists only prior to or following the activity. 4-Supervision or Touching Assistance-helper provides verbal cues and/or touching/steadying and/or contact guard assistance as patient completes activi ty. Assistance may be provided throughout the activity or intermittently. 3-Partial/Moderate Assistance-helper does LESS THAN HALF the effort. [place] lifts, holds or supports trunk or limbs, but provides less than half the effort. 2-Substantial/Maximal Assistance-helper does MORE THAN HALF the effort. [place] lifts or holds trunk or limbs and provides more than half the effort. 5-Kxfyaeeng-cdadti does ALL the effort. Patient does none of the effort to complete the activity. Or, the assistance of 2 or more helpers is required for the patient to complete the activity. If activity was not attempted, code reason: 7-Patient Refused. 9-Not Applicable-not attempted and the patient did not perform the activity before the current illness, exacerbation or injury. 10-Not Attempted due to Environmental Limitations-(lack of equipment, weather restraints, etc.). 88-Not Attempted due to Medical Conditions or Safety Concerns. Roll Left & Right (QC): 3 Sit to Lying (QC): 2 Lying to Sitting/Side of Bed(Q: 3 Sit to Stand (QC): 3 Chair/Kvx-zr-Qypre Xfer(QC): 3 Toilet Transfer (QC): 3 Car Transfer (QC): 3 Weight Bearing Weight Bearing/Tolerated Weight Bearing/Tolerated Gait Training Does the Patient Walk?: Yes Distance: 20, 36, 30 feet Walk 10 feet (QC): 3 Walk 50 ft with 2 Turns(QC): 88 Walk 150 ft (QC): 88 Walking 10ft/uneven surface-QC: 3 Gait Persons Needed: 1 Gait Assistive Device: FWW Wheelchair Training Does the Pt Use a Wheelchair?: Yes Wheel 50 ft with 2 turns (QC): 88 Wheel 150 ft (QC): 88 Type of Wheelchair: Manual Patient propels w/c 30 feet with Min A Stair Training #of Steps: 0 1 Step (curb) (QC): 88 4 Steps (QC): 88 12 Steps (QC): 88 Balance Picking up an Object (QC): 88 Exercises Seated Therapy Exercises: Ankle pumps, Long arc quads, Hip flexion, Hamstring Curls, Hip abd/add Seated Reps: 20 NuStep Minutes: 5 NuStep Workload: 3 Assessment Current Status: Fair Progress Patient tolerated treatmen fair. She requires frequent rest breaks due to fatigue. PT arrived in room after patient had BM and was being bathed with OT. Co-treatment performed due to patient significant weakness, overall decline in function and the need for two clinicians to appropriately assist the patient in a safe and efficient treatment setting that promotes the optimal amount of healing for the patient. Patient ambulates 20 feet, 36 feet, 20 feet with FWW, with CGA and verbal cues for posture, safety, control of FWW. Patient requires mod A for all transfers including care and BSC. Patient propels w/c 30 feet with min A. She requires verbal cues for use of UEs, however her UEs fatigue quickly and she demonstrates difficilty initiating movement of the W/C. Patient performs Nu Step and LE exercises as listed above. Patient requires mod to max A for return to bed and bed mobility. With HOB declined, patient able to scoot herself up higher in the bed. Patient in bed post treatment with all needs met, nursing notified, call light in reach. PT [facility] Goals Clerk Entry Level Goals PT Clerk Entry Level Goals Time Frame: Mar 08, 2023 Roll Left & Right (QC): 6 Sit to Lying (QC): 6 Lying-Sitting on Side/Bed(QC): 6 Sit to Stand (QC): 6 Chair/Afz-mt-Rueff Xfer(QC): 6 Toilet Transfer (QC): 6 Car Transfer (QC): 5 Does the Patient Walk: Yes Walk 10 feet (QC): 6 Walk 50ft with 2 Turns (QC): 6 Walk 150 ft (QC): 4 Walking 10ft on Uneven Surface: 6 1 Step (curb) (QC): 6 4 Steps (QC): 4 12 Steps (QC): 9 Picking up an Object (QC): 5 Does the Pt use WC or Scooter?: Yes Wheel 50 feet with 2 turns (QC: 6 Type: Manual Wheel 150 feet: 6 PT Plan Problem List Problem List: Activity Tolerance, Functional Strength, Safety, Balance, Gait, Transfer, Bed Mobility, ROM Treatment/Plan Treatment Plan: Continue Plan of Care Treatment Plan: Bed Mobility, Education, Functional Activity Josie, Functional Strength, Group Therapy, Gait, Safety, Therapeutic Exercise, Transfers Treatment Duration: Mar 23, 2023 Frequency: At least 5 of 7 days/Wk (IRF) Estimated Hrs Per Day: 1.5 hours per day Patient and/or Family Agrees t: Yes Safety Risks/Education Patient Education: Gait Training, Transfer Techniques, Correct Positioning, W/C Management Teaching Recipient: Patient Teaching Methods: Demonstration, Discussion Response to Teaching: Reinforcement Needed Time Time In: 820 Time Out: 1000 DATE: Feb 15, 2023 Total Billed Treatment Time: 100 Total Billed Treatment Visit, GT (2), Ex (2), W/C, FA (2) ENRIKE HUMMEL PT Feb 15, 2023 10:12
--- NOTE | 2023-02-15 10:40 | Physical Therapy Daily Note ---
PT Daily Note-Current Subjective Pt. in bed, agrees to therex . No c/o pain. Pain Location: No Pain Reported Section J - Health Conditions 1. Rarely or not at all 2. Occasionally 3. Frequently 4. Almost constantly 8. Unable to answer Pain Effect on Sleep: 1 Pain Interference with Therapy: 1 Pain Interference w/Day-to-Day: 1 Mental Status Patient Orientation: Normal For Age Transfers SCALE: Activities may be completed with or without assistive devices. 0-Piooymslho-zbmncmj completes the activity by him/herself with no assistance from a helper. 5-Set-up or Clean-up Assistance-helper sets up or cleans up; patient completes activity. [place] assists only prior to or following the activity. 4-Supervision or Touching Assistance-helper provides verbal cues and/or touching/steadying and/or contact guard assistance as patient completes activity. Assistance may be provided throughout the activity or intermittently. 3-Partial/Moderate Assistance-helper does LESS THAN HALF the effort. [place] lifts, holds or supports trunk or limbs, but provides less than half the effort. 2-Substantial/Maximal Assistance-helper does MORE THAN HALF the effort. [place] lifts or holds trunk or limbs and provides more than half the effort. 7-Buddqyeqw-ozpwka does ALL the effort. Patient does none of the effort to complete the activity. Or, the assistance of 2 or more helpers is required for the patient to complete the activity. If activity was not attempted, code reason: 7-Patient Refused. 9-Not Applicable-not attempted and the patient did not perform the activity bef ore the current illness, exacerbation or injury. 10-Not Attempted due to Environmental Limitations-(lack of equipment, weather r estraints, etc.). 88-Not Attempted due to Medical Conditions or Safety Concerns. Roll Left & Right (QC): 3 Weight Bearing Weight Bearing/Tolerated Weight Bearing/Tolerated Exercises Supine Ex: Ankle pumps (assisted L ankle HC stretches ), Quad Set, Rolling, Glut sets, Heel Slides, Hip abd/add Supine Reps: 15 Treatments therex, discussed isometric exercises that can be done while in bed to help with skin and pressure. Pt. 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 PT Skilled Nursing Goals Time Frame: Mar 08, 2023 Roll Left & Right (QC): 6 Sit to Lying (QC): 6 Lying-Sitting on Side/Bed(QC): 6 Sit to Stand (QC): 6 Chair/Yvo-iq-Cjbzn Xfer(QC): 6 Toilet Transfer (QC): 6 Car Transfer (QC): 5 Does the Patient Walk: Yes Walk 10 feet (QC): 6 Walk 50ft with 2 Turns (QC): 6 Walk 150 ft (QC): 4 Walking 10ft on Uneven Surface: 6 1 Step (curb) (QC): 6 4 Steps (QC): 4 12 Steps (QC): 9 Picking up an Object (QC): 5 Does the Pt use WC or Scooter?: Yes Wheel 50 feet with 2 turns (QC: 6 Type: Manual Wheel 150 feet: 6 PT Plan Treatment/Plan Treatment Plan: Continue Plan of Care Treatment Plan: Bed Mobility, Education, Functional Activity Josie, Functional Strength, Group Therapy, Gait, Safety, Therapeutic Exercise, Transfers Treatment Duration: Mar 23, 2023 Frequency: At least 5 of 7 days/Wk (IRF) Estimated Hrs Per Day: 1.5 hours per day Patient and/or Family Agrees t: Yes Safety Risks/Education Patient Education: Correct Positioning, Disease Process Teaching Recipient: Patient Teaching Methods: Demonstration, Discussion Response to Teaching: Verbalize Understanding, Return Demonstration, Reinforcement Needed Time Time In: 1020 Time Out: 1035 DATE: Feb 15, 2023 Total Billed Treatment Time: 15 Total Billed Treatment 1,EX15m FRED ERNANDEZ PTA Feb 15, 2023 10:40
--- NOTE | 2023-02-15 11:10 | Speech Therapy Progress Note ---
Therapy Progress Note Speech pathology has received a cognitive linguistic evaluation and completed a medical chart review. Additionally, the clinician consulted with the occupational therapist for professional insight and experience. At this time, the patient does not appear to have cognitive needs or warrant skilled speech pathology. Please re-consult speech pathology if services would be appropriate or be of any assistance throughout the the rehabilitation process. Thank you. MARS TAVAREZ Feb 15, 2023 11:10
[2023-02-15] MEDS: RIFAXIMIN 550 MG TABLET (XIFAXAN) PO SCH ×2 (12:08→23:34)
[2023-02-15] MEDS: SPIRONOLACTONE 100 MG (ALDACTONE) TABLET PO SCH (13:32)
[2023-02-15] MEDS: meTOprolol TARTRATE 25 MG (LOPRESSOR) TABLET PO SCH ×2 (13:32→21:45)
--- NOTE | 2023-02-15 14:58 | Physical Therapy Daily Note ---
PT Daily Note-Current Subjective Pt found lying in bed upon entry. Agreed to PT. States that she is really tired and dizzy pre-treatment. Reports that her dizziness has improved since this AM. Pain Section J - Health Conditions 1. Rarely or not at all 2. Occasionally 3. Frequently 4. Almost constantly 8. Unable to answer Pain Effect on Sleep: 1 Pain Interference with Therapy: 1 Pain Interference w/Day-to-Day: 1 Mental Status Patient Orientation: Person, Place, Time Transfers SCALE: Activities may be completed with or without assistive devices. 2-Fmibxsdfpx-wrjqqwx completes the activity by him/herself with no assistance from a helper. 5-Set-up or Clean-up Assistance-helper sets up or cleans up; patient completes activity. [place] assists only prior to or following the activity. 4-Supervision or Touching Assistance-helper provides verbal cues and/or touching/steadying and/or contact guard assistance as patient completes activity. Assistance may be provided throughout the activity or intermittently. 3-Partial/Moderate Assistance-helper does LESS THAN HALF the effort. [place] lifts, holds or supports trunk or limbs, but provides less than half the effort. 2-Substantial/Maximal Assistance-helper does MORE THAN HALF the effort. [place] lifts or holds trunk or limbs and provides more than half the effort. 8-Zshijtvjs-xzyefx does ALL the effort. Patient does none of the effort to complete the activity. Or, the assistance of 2 or more helpers is required for the patient to complete the activity. If activity was not attempted, code reason: 7-Patient Refused. 9-Not Applicable-not attempted and the patient did not perform the activity before the current illness, exacerbation or injury. 10-Not Attempted due to Environmental Limitations-(lack of equipment, weather restraints, etc.). 88-Not Attempted due to Medical Conditions or Safety Concerns. Roll Left & Right (QC): 3 Sit to Lying (QC): 2 Lying to Sitting/Side of Bed(Q: 3 Sit to Stand (QC): 3 Chair/Pom-ai-Favey Xfer(QC): 3 Pt MAX assist with sit to lying transfers. MOD assist with all other completed transfers. Required use of stool to complete sit to lying transfer due to bed height. Pt transferred from bed to to complete seated therapeutic exercises. Returned to bed post-treatment. Weight Bearing Weight Bearing/Tolerated Weight Bearing/Tolerated Gait Training Does the Patient Walk?: Yes Distance: 5, 5 Walk 10 feet (QC): 3 Gait Persons Needed: 1 Gait Assistive Device: FWW Pt MOD assist with gait training uses FWW. Displays very slow gait cycle with no loss of balance. Ambulated 10 feet total. Wheelchair Training Does the Pt Use a Wheelchair?: Yes Treatments Seated therapeutic exercises: LAQs, marches, heel/toe raises, hip abd/add, hamstring curls x 10 each. Assessment Current Status: Poor Progress Pt displays poor muscle endurance and strength throughout treatment. Very slow to complete transfers, gait, and therapeutic exercises. Has difficulty completing exercises with LLE likely due to muscle weakness. Reports fatigue post-treatment. Continue to progress pt as tolerated per POC to increase strength, endurance, and functional ability. PT [facility] Goals Tong Hooker Goals PT Tong Hooker Goals Time Frame: Mar 08, 2023 Roll Left & Right (QC): 6 Sit to Lying (QC): 6 Lying-Sitting on Side/Bed(QC): 6 Sit to Stand (QC): 6 Chair/Nxh-lv-Gdehu Xfer(QC): 6 Toilet Transfer (QC): 6 Car Transfer (QC): 5 Does the Patient Walk: Yes Walk 10 feet (QC): 6 Walk 50ft with 2 Turns (QC): 6 Walk 150 ft (QC): 4 Walking 10ft on Uneven Surface: 6 1 Step (curb) (QC): 6 4 Steps (QC): 4 12 Steps (QC): 9 Picking up an Object (QC): 5 Does the Pt use WC or Scooter?: Yes Wheel 50 feet with 2 turns (QC: 6 Type: Manual Wheel 150 feet: 6 PT Plan Treatment/Plan Treatment Plan: Continue Plan of Care Treatment Plan: Bed Mobility, Education, Functional Activity Josie, Functional Strength, Group Therapy, Gait, Safety, Therapeutic Exercise, Transfers Treatment Duration: Mar 08, 2023 Frequency: At least 5 of 7 days/Wk (IRF) Estimated Hrs Per Day: 1.5 hours per day Patient and/or Family Agrees t: Yes Time Time In: 1300 Time Out: 1330 DATE: Feb 15, 2023 Total Billed Treatment Time: 30 Total Billed Treatment 1 visit FA 1x EX 1x 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
[2023-02-15] MEDS: warFARin 2 MG (COUMADIN) TAB PO SCH (17:16)
[2023-02-15 20:45] VITALS: BP 85/55
--- NOTE | 2023-02-16 05:40 | Individualized Plan of Care ---
Individualized Plan of Care Rehab Nursing IPOC Order Admission Date Feb 14, 2023 at 16:15 Current Orders Orders Admission Order(Inpt,Obs,Sdc) (02/14/23 12:59) Vital Signs: Per Unit Policy ( 08,16,00 (02/14/23 12:59) Ravindra Hung (02/14/23 12:59) Sequential Compression Device (02/14/23 12:59) Manufacturing Engineering Technician-Inpt Rehab Con (02/14/23 12:59) Rehab Nursing Orders-Ipoc (02/14/23 12:59) Physical Therapy Rehab Orders (02/14/23 12:59) Occupational Therapy Rehab Ord (02/14/23 12:59) Speech Therapy Rehab Orders (02/14/23 12:59) Cbc With Automated Diff (02/15/23 06:00) Comprehensive Metabolic Panel (02/15/23 06:00) Precautions (Aru) (02/14/23 12:59) Weekly Weight WEEK (02/14/23 12:59) Rehab-Intensity Of Therapy (02/14/23 12:59) Initiate Admission Nursing Pro .admission (02/14/23 12:59) Alprazolam Tablet (Xanax Tablet) (02/14/23 13:00) Calcium Carbonate Chew Tablet (Antacid C (02/14/23 13:00) Diphenhydramine Tablet (Benadryl Tablet) (02/14/23 13:00) Docusate Sodium Capsule (Colace Capsule) (02/14/23 21:00) Docusate Sodium Capsule (Colace Capsule) (02/14/23 13:00) Bisacodyl Suppository (Dulcolax Supposit (02/14/23 13:00) Lactulose Oral Solution (Enulose Oral So (02/14/23 13:00) Na Phos/Na Biphos Enema (Fleet Enema Liban (02/14/23 13:00) Guaifenesin/Codeine Syrup (Robitussin Ac (02/14/23 13:00) Loperamide Tablet (Imodium Tablet) (02/14/23 13:00) Melatonin Tablet (Melatonin Tablet) (02/14/23 13:00) Polyethylene Glycol Powder Pkt (Miralax (02/14/23 21:00) Ondansetron Oral Dissolve Tab (Zofran (02/14/23 13:00) Senna S Tablet (Senokot S Tablet) (02/14/23 21:00) Acetaminophen Tablet/Caplet (Tylenol T (02/14/23 13:00) Initiate Admission Nursing Pro .admission (02/14/23 12:59) Admission Arrival Bed Request (02/14/23 16:26) Cho 60g/M 1snack (16-2000 Nicola) (02/14/23 Dinner) Accucheck Achs ACHS (02/14/23 18:40) Bumetanide Tablet (Bumex Tablet) (02/15/23 09:00) Citalopram Tablet (Celexa Tablet) (02/15/23 09:00) Insulin Aspart (Novolog) (Novolog (Charg (02/15/23 07:00) Lactulose Oral Solution (Enulose Oral So (02/15/23 09:00) Levothyroxine Tablet (Synthroid Tablet) (02/15/23 07:00) Metoprolol Tartrate (Ir) Tab (Lopressor (02/14/23 21:00) Midodrine Tablet (Proamatine) (02/14/23 21:00) Pantoprazole Tablet (Protonix Tablet) (02/15/23 06:00) Rifaximin Tablet (Xifaxan Tablet) (02/14/23 21:00) Spironolactone Tablet (Aldactone Tablet) (02/15/23 09:00) Warfarin Tablet (Coumadin Tablet) (02/15/23 18:00) (Nf) Dulaglutide (Trulicity) (02/14/23 21:00) Protime With Inr (02/15/23 06:00) Insulin Determir (Per Unit) (Levemir (Pe (02/14/23 21:00) Iron Test (Fe) (02/15/23 06:37) Vitamin B 12 (02/15/23 06:37) Hemoglobin A1c (02/15/23 06:37) Thyroid Stimulating Hormone (02/15/23 06:37) Ammonia (02/15/23 06:37) Midodrine Tablet (Proamatine) (02/15/23 13:00) Patient Visit (02/15/23 ) Exercise Therap, Ea 15 Min (02/15/23 ) Patient Visit (02/15/23 ) Pt Eval Moderate Complexity (02/15/23 ) Functional Activities, Ea 15 (02/15/23 ) Patient Visit (02/15/23 ) Gait Training, Ea 15 Min (02/15/23 ) Wheelchair Mgmt/Propulsn 15min (02/15/23 ) Exercise Therap, Ea 15 Min (02/15/23 ) Functional Activities, Ea 15 (02/15/23 ) Patient Visit (02/15/23 ) Functional Activities, Ea 15 (02/15/23 ) Exercise Therap, Ea 15 Min (02/15/23 ) Lactulose Oral Solution (Enulose Oral So (02/16/23 12:00) Lactulose Oral Solution (Enulose Oral So (02/16/23 21:00) Ravindra Hose 09, (02/16/23 12:00) Patient Visit (02/16/23 ) Exercise Therap, Ea 15 Min (02/16/23 ) Functional Activities, Ea 15 (02/16/23 ) Rehab Nursing Orders: Ongoing Assess. of Cognitive Status, Ongoing Assess. of Function Status, Bladder Management, Bladder Scan, Bladder Training, Bowel Management, Bowel Training, Disease Management & Educaiton, DVT Prophylaxis, Fall Prevention, Fluid/Electrolyte/Nutrition Mgmt, Infection Prevention, Medication Management & Education, Management of Risks & Complications, Management of Skin Intergrity, Nutrition Management, Pain Management, Patient/Family Support, Safety Management, Wound Management Intensity of Therapy to be met Patient to be seen: Min.3h per day/5 of 7d PT IPOC Problem List: Activity Tolerance, Functional Strength, Safety, Balance, Gait, Transfer, Bed Mobility Treatment Plan: Continue Plan of Care Bed Mobility, Education, Functional Activity Josie, Functional Strength, Group Therapy, Gait, Safety, Therapeutic Exercise, Transfers Treatment Duration: Mar 08, 2023 Frequency: At least 5 of 7 days/Wk (IRF) Estimated Hrs Per Day: 1.5 hours per day OT IPOC Problems: Decreased Activ Tolerance, Decreased UE Strength, Impaired Bed Mobility, Impaired Funct Balance, Impaired I ADL's, Impaired Self-Care Skills OT Treatment, Training and Edu: Yes Plan of Care: ADL Retraining, Functional Mobility, Group Exercise/Act as Ind, UE Funct Exercise/Act Treatment Duration: Mar 15, 2023 Frequency: At least 5 of 7 days/Wk (IRF) Estimated Hrs Per Day: 1.[address] IPOC Speech Therapy Treatment Plan: Discontinue ST Treatment Duration: Feb 15, 2023 Frequency: Modified Program (IRF) Estimated Hrs Per Day: Other Manufacturing Engineering Technician/Case Mgmt Manufacturing Engineering Technician/Case Managemen: Discharge Planning Dietitian/Automatic Toe Laster Dietitian/Automatic Toe Laster to monitor nutritional status and make changes and/or recommendations as needed and work with speech pathology on dietary upgrades as the occur. Physician IPOC Medical Issues being managed closely and that require the 24 hour availability of a physician: Recent hepatic failure with encephalopathy will require close monitoring of creatinine due to hepatorenal syndrome and monitor INR on Coumadin Medical Issues: Bowel/Bladder Function, DVT Prophylaxis, Falls Precautions, Fluid/Electrolyte/Nutrition Balance, Infection Protection, Pain Management, Wound Care Brief Synthesis of Preadmission Screen, Post-Admission Evaluation, and Therapy Evaluations: PT OT will focus on regaining function with use of AD in order to return home and recover in order to maintain liver transplant list status Medical Prognosis: Guarded Anticipated Length of Stay: 10 days LUCY LANG DO Feb 16, 2023 05:40
--- NOTE | 2023-02-16 05:40 | PM&R Progress Note ---
Subjective HPI/CC On Admission Date Seen by Provider: Feb 16, 2023 Time Seen by Provider: 12:00 Subjective/Events-last exam 02/16/2023: No major issues Hypotension is slightly symptomatic No bleeding No falls 02/15/2023: Had a good night Ambulating to the wheelchair and transfers are good TB 10 Still jaundiced Creat 2 Monitoring closely Review of Systems General: Fatigue, Malaise Objective Exam Vital Signs Vital Signs Date Time Temp Pulse Resp B/P (MAP) Pulse Ox O2 Delivery O2 Flow Rate FiO2 02/16/23 07:58 36.8 57 18 88/56 (67) 96 Room Air Capillary Refill : General Appearance: No Apparent Distress, WD/WN, Chronically ill, Obese, Other (jaundiced) HEENT: PERRL/EOMI, Normal ENT Inspection, Pharynx Normal Neck: Full Range of Motion, Normal Inspection, Non Tender, Supple, Carotid Bruit Respiratory: Chest Non Tender, Lungs Clear, Normal Breath Sounds, No Accessory Muscle Use, No Respiratory Distress Cardiovascular: Regular Rate, Rhythm, No Edema, No Gallop, No JVD, No Murmur, Normal Peripheral Pulses Gastrointestinal: Normal Bowel Sounds, No Organomegaly, No Pulsatile Mass, Non Tender, Soft Back: Normal Inspection, No CVA Tenderness, No Vertebral Tenderness Extremity: Normal Capillary Refill, Normal Inspection, Normal Range of Motion, Non Tender, No Calf Tenderness, No Pedal Edema Neurologic/Psychiatric: Alert, Oriented x3, supervisor dumping II-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 FIM Transfers Therapy Code Descriptions/Definitions Functional [place] Measure: 0=Not Assessed/NA 4=Minimal Assistance 1=Total Assistance 5=Supervision or Setup 2=Maximal Assistance 6=Modified [place] 3=Moderate Assistance 7=Complete IndependenceSCALE: Activities may be completed with or without assistive devices. 6-Vtiivqkqqn-ynvzgby completes the activity by him/herself with no assistance from a helper. 5-Set-up or Clean-up Assistance-helper sets up or cleans up; patient completes activity. [place] assists only prior to or following the activity. 4-Supervision or Touching Assistance-helper provides verbal cues and/or touching/steadying and/or contact guard assistance as patient completes activity. Assistance may be provided throughout the activity or intermittently. 3-Partial/Moderate Assistance-helper does LESS THAN HALF the effort. [place] lifts, holds or supports trunk or limbs, but provides less than half the effort. 2-Substantial/Maximal Assistance-helper does MORE THAN HALF the effort. [place] lifts or holds trunk or limbs and provides more than half the effort. 2-Ycfvwrzvw-dtgret does ALL the effort. Patient does none of the effort to complete the activity. Or, the assistance of 2 or more helpers is required for the patient to complete the activity. If activity was not attempted, code reason: 7-Patient Refused. 9-Not Applicable-not attempted and the patient did not perform the activity before the current illness, exacerbation or injury. 10-Not Attempted due to Environmental Limitations-(lack of equipment, weather restraints, etc.). 88-Not Attempted due to Medical Conditions or Safety Concerns. Roll Left to Right (QC): 3 Sit to Lying (QC): 2 Sit to Stand (QC): 3 Chair/Uic-gw-Yharh Xfer(QC): 3 Car Transfer (QC): 3 Gait Training Does the Patient Walk?: Yes Distance: 5, 5 Walk 10 feet (QC): 3 Walk 50 ft with 2 Turns(QC): 88 Walk 150 ft (QC): 88 Walking 10ft/uneven surface-QC: 3 (with FWW) Gait Persons Needed: 1 Gait Assistive Device: FWW Wheelchair Training Does the Pt Use a Wheelchair?: Yes Wheel 50 ft with 2 turns (QC): 88 Wheel 150 ft (QC): 88 Type of Wheelchair: Manual Stair Training #of Steps: 0 1 Step (curb) (QC): 3 (FWW to step up onto 2" step/mat, cues to not understep walker when placing it up on mat/"curb") 4 Steps (QC): 88 12 Steps (QC): 88 Balance Picking up an Object (QC): 88 ADL-Treatment Eating (QC): 5 (assist opening milk carton) Oral Hygiene (QC): 5 (set up) Shower/Bathe Self (QC): 1 (Assist x2 in stand to wash buttocks. Assistance washing BLEs lower legs/feet.) Upper Body Dressing (QC): 3 (Min A managing shirt down trunk) Lower Body Dressing (QC): 1 (Assist x2 in stand. 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
[2023-02-16] MEDS: LEVOTHYROXINE 112 MCG (LEVOTHROID) TAB PO SCH (06:31)
[2023-02-16] MEDS: inSUlin ASPART (NovoLOG) 1 UNIT/0.01 ML (CHARGE PER UNIT) SQ SCH ×3 (06:31→17:06)
[2023-02-16] MEDS: PANTOPRAZOLE 40 MG (PROTONIX) TAB PO SCH (06:31)
[2023-02-16 07:58] VITALS: BP 88/56
[2023-02-16] MEDS: LACTULOSE SYRUP 10GM/15ML (ENULOSE) 30ML UDC PO SCH ×2 (09:41→21:00)
[2023-02-16] MEDS: polyethylene glycoL POWDER 17 GM (MIRALAX) PACK PO SCH ×2 (09:41→21:00)
[2023-02-16] MEDS: SPIRONOLACTONE 100 MG (ALDACTONE) TABLET PO SCH (09:42)
[2023-02-16] MEDS: RIFAXIMIN 550 MG TABLET (XIFAXAN) PO SCH ×2 (09:42→21:37)
[2023-02-16] MEDS: BUMETANIDE 1 MG (BUMEX) TAB PO SCH (09:42)
[2023-02-16] MEDS: SENNA W/DOCUSATE (SENOKOT S) TABLET PO SCH ×2 (09:43→21:00)
[2023-02-16] MEDS: DOCUSATE SODIUM 100 MG (COLACE) CAP PO SCH ×2 (09:43→21:00)
[2023-02-16] MEDS: MIDODRINE 10 MG (PROAMATINE) TAB PO SCH ×3 (09:43→21:00)
[2023-02-16] MEDS: meTOprolol TARTRATE 25 MG (LOPRESSOR) TABLET PO SCH ×2 (09:46→21:00)
--- NOTE | 2023-02-16 10:14 | Occupational Ther Daily Note ---
OT Current Status-Daily Note Subjective No pain reported. Appearance Pt. in bed. Alert and agreeable to treatment. Declines attempting shower but agrees to sponge bathe. Mental Status/Objective Patient Orientation: Person, Place, Time, Situation ADL-Treatment Therapy Code Descriptions/Definitions Functional [place] Measure: 0=Not Assessed/NA 4=Minimal Assistance 1=Total Assistance 5=Supervision or Setup 2=Maximal Assistance 6=Modified [place] 3=Moderate Assistance 7=Complete IndependenceSCALE: Activities may be completed with or without assistive devices. 1-Dsepjrxcia-ucqcuof completes the activity by him/herself with no assistance from a helper. 5-Set-up or Clean-up Assistance-helper sets up or cleans up; patient completes activity. [place] assists only prior to or following the activity. 4-Supervision or Touching Assistance-helper provides verbal cues and/or touching/steadying and/or contact guard assistance as patient completes activity. Assistance may be provided throughout the activity or intermittently. 3-Partial/Moderate Assistance-helper does LESS THAN HALF the effort. [place] lifts, holds or supports trunk or limbs, but provides less than half the effort. 2-Substantial/Maximal Assistance-helper does MORE THAN HALF the effort. [place] lifts or holds trunk or limbs and provides more than half the effort. 1-Tnnilqjuw-[place] does ALL the effort. Patient does none of the effort to complete the activity. Or, the assistance of 2 or more helpers is required for the patient to complete the activity. If activity was not attempted, code reason: 7-Patient Refused. 9-Not Applicable-not attempted and the patient did not perform the activity before the current illness, exacerbation or injury. 10-Not Attempted due to Environmental Limitations-(lack of equipment, weather restraints, etc.). 88-Not Attempted due to Medical Conditions or Safety Concerns. Eating (QC): 6 Oral Hygiene (QC): 5 (Set up only to brush teeth in chair.) Shower/Bathe Self (QC): 3 (Mod assist overall. Pt. able to bathe chest, face, under arms. She is able to cleanse bilateral LE with LH sponge. OT assists with triny care while in stance.) Lower Body Dressing (QC): 3 (Min/mod assist to doff/don depend. Pt. is issued and educated on adaptive equipment. She utilizes a director trial to don fresh depends over feet. Able to pull up to thighs and then requires assistance to supervisor pullet [place] and belly.) On/Off Footwear: 3 (Min assist to doff/don slipper socks with use of sock aide and dressing stick.) Toileting Hygiene (QC): 2 (Max assist in stance. Pt. is able to pull down depend, and assist with pulling up fresh one. Requires dependent assistance for triny cleanse.) Other Treatment Pt. seen for partial co-treatment with PT. Pt. fatigues very easily and requires multiple rest breaks. Pt. requires mod assist for supine-sit on bed, mainly due to it being air bed. Required min assist for sit-stand with walker, and ambulation to chair. Pt. completes ADL skills while up in chair. OT assists pt with cleansing hair using shampoo cap. At end of ADLs PT comes in to begin co-treatment due to fatigue and poor endurance tolerance. Pt. is able to walk with walker, with CGA/min assist with slow steps. She ambulates twice, small distance (see PT note) and then requires rest breaks. Therapy takes her to gym and pt. completes several trials in parallel bars. PT facilitates standing posture and dynamic balance strategies while OT focuses on UE reach, dynamic balance, and trunk rotation. Multiple rest breaks needed. Pt. begins to state that she is dizzy. BP taken and is 87/44. She states that it has been low lately. Nursing notified. Completes simple AROM exercises while seated for UE shoulder flexion, and bilateral LE kicks. PT up with pt. when OT left room. Education OT Patient Education: Correct positioning, Energy conservation, Exercise program, Modified ADL techniques, Progress toward Goal/Update tx plan, Purpose of tx/functional activities, Reviewed precautions, Rehab process, Transfer techniques, Use of adapted equipment Teaching Recipient: Patient Teaching Methods: Demonstration, Discussion Response to Teaching: Verbalize Understanding, Return Demonstration OT Short Term Goals Short Term Goals Time Frame: Mar 01, 2023 Shower/bathe self: 3 Lower body dressin Putting on/taking off footwear: 3 OT Chcf Goals Chcf Goals Time Frame: Mar 15, 2023 Acute change in mental status: 0 Inattention: 0 Disorganized thinkin Altered level of consciousness: 0 Eating (QC): 6 Oral Hygiene (QC): 6 Toileting Hygiene (QC): 6 Shower/Bathe Self (QC): 6 Upper Body Dressing (QC): 6 Lower Body Dressing (QC): 6 On/Off Footwear (QC): 6 Additional Goals: 1-Demonstrate ADL Tasks, 2-Verbalize Understanding, 3- ImproveStrength/Josie 1=Demonstrate adherence to instructed precautions during ADL tasks. 2=Patient will verbalize/demonstrate understanding of assistive devices/modifications for ADL. 3=Patient will improve strength/tolerance for activity to enable patient to perform ADL's. OT Education/Plan Problem List/Assessment Assessment: Decreased Activ Tolerance, Decreased UE Strength, Dependent Transfers, Impaired Bed Mobility, Impaired Funct Balance, Impaired I ADL's, Impaired Self-Care Skills Discharge Recommendations Plan/Recommendations: Continue POC Therapy Discharge Recommendati: Post Acute OT Equpiment Recommendations-D/C: Hip Kit Treatment Plan/Plan of Care Treatment,Training & Education: Yes Patient would benefit from OT for education, treatment and training to promote independence in ADL's, mobility, safety and/or upper extremity function for ADL's. Plan of Care: ADL Retraining, Functional Mobility, Group Exercise/Act as Ind, UE Funct Exercise/Act Treatment Duration: Mar 15, 2023 Frequency: At least 5 of 7 days/Wk (IRF) Estimated Hrs Per Day: 1.5 hours per day Agreement: Yes Rehab Potential: Good Time Start Time: 08:20 Stop Time: 09:50 DATE: Feb 16, 2023 Total Time Billed (hr/min): 90 Billed Treatment Time [id number] 1, ADL x 45minutes, OT only [id number] FA x 30minutes, Ex x 15minutes. Co-treatment with PT. Please see above for designated roles. ARMIDA SOLER OT Feb 16, 2023 10:14
[2023-02-16] MEDS ORDERED: LACTULOSE SYRUP 10GM/15ML (ENULOSE) 30ML UDC PO ONE (12:00)
--- NOTE | 2023-02-16 12:43 | Physical Therapy Daily Note ---
PT Daily Note-Current Subjective Pt in room w/ OT upon arrival and agrees to PT. Pain Section J - Health Conditions 1. Rarely or not at all 2. Occasionally 3. Frequently 4. Almost constantly 8. Unable to answer Pain Effect on Sleep: 1 Pain Interference with Therapy: 1 Pain Interference w/Day-to-Day: 1 Mental Status Patient Orientation: Person, Place, Time, Situation Transfers SCALE: Activities may be completed with or without assistive devices. 2-Zsohhnjcfj-hdcfdgs completes the activity by him/herself with no assistance from a helper. 5-Set-up or Clean-up Assistance-helper sets up or cleans up; patient completes activity. [place] assists only prior to or following the activity. 4-Supervision or Touching Assistance-helper provides verbal cues and/or touching/steadying and/or contact guard assistance as patient completes activity. Assistance may be provided throughout the activity or intermittently. 3-Partial/Moderate Assistance-helper does LESS THAN HALF the effort. [place] lifts, holds or supports trunk or limbs, but provides less than half the effort. 2-Substantial/Maximal Assistance-helper does MORE THAN HALF the effort. [place] lifts or holds trunk or limbs and provides more than half the effort. 9-Jordbngtl-dclihs does ALL the effort. Patient does none of the effort to complete the activity. Or, the assistance of 2 or more helpers is required for the patient to complete the activity. If activity was not attempted, code reason: 7-Patient Refused. 9-Not Applicable-not attempted and the patient did not perform the activity before the current illness, exacerbation or injury. 10-Not Attempted due to Environmental Limitations-(lack of equipment, weather restraints, etc.). 88-Not Attempted due to Medical Conditions or Safety Concerns. Sit to Lying (QC): 3 Sit to Stand (QC): 4 Weight Bearing Weight Bearing/Tolerated Weight Bearing/Tolerated Gait Training Does the Patient Walk?: Yes Distance: 25' x 2 Walk 10 feet (QC): 4 Gait Assistive Device: FWW Exercises Supine Ex: Bridging, Ankle pumps, Heel Slides, Hip abd/add Supine Reps: 30 Seated Therapy Exercises: Ankle pumps, Long arc quads, Hip flexion, Hip abd/add Seated Reps: 20 Standing: Sit to Stand Standing Reps: 5 Treatments Pt. seen for partial co-treatment with OT. Pt. is able to walk with walker, with CGA/min assist with slow steps. Therapy takes her to gym and pt. completes several trials in parallel bars. PT facilitates standing posture and dynamic balance strategies while OT focuses on UE reach, dynamic balance, and trunk rotation. Multiple rest breaks needed. Pt. begins to state that she is dizzy. BP taken and is 87/44. She states that it has been low lately. Nursing notified. Completes simple AROM exercises while seated for UE shoulder flexion, and bilateral LE kicks. Pt then wheeled back to room. Pt TFs back to bed and requires Adrián to assist w/ LEs. Pt then performs supine exs in bed then PT departs w/ all needs met and call light nearby. Assessment Current Status: Good Progress Pt required verbal and tactile cues in order to performs TFs correctly. Pt fatigues very quickly and requires multiple rest breaks. PT Chcf Goals Chcf Goals PT Chcf Goals Time Frame: Mar 08, 2023 Roll Left & Right (QC): 6 Sit to Lying (QC): 6 Lying-Sitting on Side/Bed(QC): 6 Sit to Stand (QC): 6 Chair/Mjt-yb-Ekgrb Xfer(QC): 6 Toilet Transfer (QC): 6 Car Transfer (QC): 5 Does the Patient Walk: Yes Walk 10 feet (QC): 6 Walk 50ft with 2 Turns (QC): 6 Walk 150 ft (QC): 4 Walking 10ft on Uneven Surface: 6 1 Step (curb) (QC): 6 4 Steps (QC): 4 12 Steps (QC): 9 Picking up an Object (QC): 5 Does the Pt use WC or Scooter?: Yes Wheel 50 feet with 2 turns (QC: 6 Type: Manual Wheel 150 feet: 6 PT Plan Problem List Problem List: Activity Tolerance, Functional Strength, Safety Treatment/Plan Treatment Plan: Continue Plan of Care Treatment Plan: Bed Mobility, Education, Functional Activity Josie, Functional Strength, Group Therapy, Gait, Safety, Therapeutic Exercise, Transfers Treatment Duration: Mar 08, 2023 Frequency: At least 5 of 7 days/Wk (IRF) Estimated Hrs Per Day: 1.5 hours per day Patient and/or Family Agrees t: Yes Safety Risks/Education Patient Education: Transfer Techniques, Correct Positioning Teaching Recipient: Patient Teaching Methods: Discussion Response to Teaching: Return Demonstration Time Time In: 904 Time Out: 1035 DATE: Feb 16, 2023 Total Billed Treatment Time: 90 Total Billed Treatment 1, EX x 4, FA x 2 [place] PTA Feb 16, 2023 12:43
[2023-02-16] MEDS: warFARin 2 MG (COUMADIN) TAB PO SCH (17:04)
[2023-02-16 21:02] VITALS: BP 93/59
--- NOTE | 2023-02-17 05:44 | PM&R Progress Note ---
Subjective HPI/CC On Admission Date Seen by Provider: Feb 17, 2023 Time Seen by Provider: 08:30 Subjective/Events-last exam 02/17/2023: No major events overnight Vaginal bleeding noted and no menses since 2015 when she was dx with OMARI She goes to [facility] every 6 months but she missed recent appt due to hospital stay OMARI was dx in 2015 when she was in hospital at [place] when she had an infected cyst of her kidney TV and Pelvic USG will be performed tomorrow 02/16/2023: No major issues Hypotension is slightly symptomatic No bleeding No falls 02/15/2023: Had a good night Ambulating to the wheelchair and transfers are good TB 10 Still jaundiced Creat 2 Monitoring closely Review of Systems General: Fatigue, Malaise Objective Exam Vital Signs Vital Signs Date Time Temp Pulse Resp B/P (MAP) Pulse Ox O2 Delivery O2 Flow Rate FiO2 02/17/23 09:00 95 Room Air 02/17/23 07:12 36.8 63 18 85/55 (65) Capillary Refill : General Appearance: No Apparent Distress, WD/WN, Chronically ill, Obese, Other (jaundiced) HEENT: PERRL/EOMI, Normal ENT Inspection, Pharynx Normal Neck: Full Range of Motion, Normal Inspection, Non Tender, Supple, Carotid Bruit Respiratory: Chest Non Tender, Lungs Clear, Normal Breath Sounds, No Accessory Muscle Use, No Respiratory Distress Cardiovascular: Regular Rate, Rhythm, No Edema, No Gallop, No JVD, No Murmur, Normal Peripheral Pulses Gastrointestinal: Normal Bowel Sounds, No Organomegaly, No Pulsatile Mass, Non Tender, Soft Back: Normal Inspection, No CVA Tenderness, No Vertebral Tenderness Extremity: Normal Capillary Refill, Normal Inspection, Normal Range of Motion, Non Tender, No Calf Tenderness, No Pedal Edema Neurologic/Psychiatric: Alert, Oriented x3, specialty therapist II-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 FIM Transfers Therapy Code Descriptions/Definitions Functional [place] Measure: 0=Not Assessed/NA 4=Minimal Assistance 1=Total Assistance 5=Supervision or Setup 2=Maximal Assistance 6=Modified [place] 3=Moderate Assistance 7=Complete IndependenceSCALE: Activities may be completed with or without assistive devices. 5-Jtlbraqpuj-oyqerko completes the activity by him/herself with no assistance from a helper. 5-Set-up or Clean-up Assistance-helper sets up or cleans up; patient completes activity. [place] assists only prior to or following the activity. 4-Supervision or Touching Assistance-helper provides verbal cues and/or touching/steadying and/or contact guard assistance as patient completes activity. Assistance may be provided throughout the activity or intermittently. 3-Partial/Moderate Assistance-helper does LESS THAN HALF the effort. [place] lifts, holds or supports trunk or limbs, but provides less than half the effort. 2-Substantial/Maximal Assistance-helper does MORE THAN HALF the effort. [place] lifts or holds trunk or limbs and provides more than half the effort. 7-Demnhkqtv-detysz does ALL the effort. Patient does none of the effort to complete the activity. Or, the assistance of 2 or more helpers is required for the patient to complete the activity. If activity was not attempted, code reason: 7-Patient Refused. 9-Not Applicable-not attempted and the patient did not perform the activity before the current illness, exacerbation or injury. 10-Not Attempted due to Environmental Limitations-(lack of equipment, weather restraints, etc.). 88-Not Attempted due to Medical Conditions or Safety Concerns. Roll Left to Right (QC): 3 Sit to Lying (QC): 3 Sit to Stand (QC): 4 Chair/Gxb-ti-Kyadn Xfer(QC): 3 Car Transfer (QC): 3 Gait Training Does the Patient Walk?: Yes Distance: 25' x 2 Walk 10 feet (QC): 4 Walk 50 ft with 2 Turns(QC): 88 Walk 150 ft (QC): 88 Walking 10ft/uneven surface-QC: 3 (with FWW) Gait Persons Needed: 1 Gait Assistive Device: FWW Wheelchair Training Does the Pt Use a Wheelchair?: Yes Wheel 50 ft with 2 turns (QC): 88 Wheel 150 ft (QC): 88 Type of Wheelchair: Manual Stair Training #of Steps: 0 1 Step (curb) (QC): 3 (FWW to step up onto 2" step/mat, cues to not understep walker when placing it up on mat/"curb") 4 Steps (QC): 88 12 Steps (QC): 88 Balance Picking up an Object (QC): 88 ADL-Treatment Eating (QC): 6 Oral Hygiene (QC): 5 (Set up only to brush teeth in chair.) Shower/Bathe Self (QC): 3 (Mod assist overall. Pt. able to bathe chest, face, under arms. She is able to cleanse bilateral LE with LH sponge. OT assists with triny care while in stance.) Upper Body Dressing (QC): 3 (Min A managing shirt down trunk) Lower Body Dressing (QC): 3 (Min/mod assist to doff/don depend. Pt. is issued and educated on adaptive equipment. She utilizes a spout positioner to don fresh depends over feet. Able to pull up to thighs and then requires assistance to pull up hand bottom and belly.) On/Off Footwear (QC): 3 (Min assist to doff/don slipper socks with use of sock aide and dressing stick.) Toileting Hygiene (QC): 2 (Max assist in stance. Pt. is able to pull down depend, and assist with pulling up fresh one. 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
[2023-02-17] MEDS: PANTOPRAZOLE 40 MG (PROTONIX) TAB PO SCH (06:22)
[2023-02-17] MEDS: LEVOTHYROXINE 112 MCG (LEVOTHROID) TAB PO SCH (06:22)
[2023-02-17] MEDS: inSUlin ASPART (NovoLOG) 1 UNIT/0.01 ML (CHARGE PER UNIT) SQ SCH ×3 (06:46→17:09)
[2023-02-17 07:12] VITALS: BP 85/55
[2023-02-17] MEDS: BUMETANIDE 1 MG (BUMEX) TAB PO SCH (10:25)
[2023-02-17] MEDS: SPIRONOLACTONE 100 MG (ALDACTONE) TABLET PO SCH (10:25)
[2023-02-17] MEDS: DOCUSATE SODIUM 100 MG (COLACE) CAP PO SCH ×2 (10:26→21:00)
[2023-02-17] MEDS: LACTULOSE SYRUP 10GM/15ML (ENULOSE) 30ML UDC PO SCH ×2 (10:27→21:00)
[2023-02-17] MEDS: meTOprolol TARTRATE 25 MG (LOPRESSOR) TABLET PO SCH ×2 (10:28→21:00)
[2023-02-17] MEDS: MIDODRINE 10 MG (PROAMATINE) TAB PO SCH ×3 (10:28→21:00)
[2023-02-17] MEDS: polyethylene glycoL POWDER 17 GM (MIRALAX) PACK PO SCH ×2 (10:28→21:00)
[2023-02-17] MEDS: RIFAXIMIN 550 MG TABLET (XIFAXAN) PO SCH ×2 (10:29→21:45)
[2023-02-17] MEDS: SENNA W/DOCUSATE (SENOKOT S) TABLET PO SCH ×2 (10:29→21:00)
[2023-02-17] MEDS: warFARin 2 MG (COUMADIN) TAB PO SCH (17:09)
[2023-02-17 19:33] VITALS: BP 88/50
--- NOTE | 2023-02-18 05:28 | PM&R Progress Note ---
Subjective HPI/CC On Admission Date Seen by Provider: Feb 18, 2023 Time Seen by Provider: 10:00 Subjective/Events-last exam 02/18/2023: Doing well No major issues Will send copies of labs to [facility] due to increased creatinine Ambulating well TV USG today 02/17/2023: No major events overnight Vaginal bleeding noted and no menses since 2015 when she was dx with OMARI She goes to [facility] every 6 months but she missed recent appt due to hospital stay OMARI was dx in 2015 when she was in hospital at [place] when she had an infected cyst of her kidney TV and Pelvic USG will be performed tomorrow 02/16/2023: No major issues Hypotension is slightly symptomatic No bleeding No falls 02/15/2023: Had a good night Ambulating to the wheelchair and transfers are good TB 10 Still jaundiced Creat 2 Monitoring closely Review of Systems General: Fatigue, Malaise Objective Exam Vital Signs Vital Signs Date Time Temp Pulse Resp B/P (MAP) Pulse Ox O2 Delivery O2 Flow Rate FiO2 02/18/23 21:11 Room Air 02/18/23 20:31 36.5 61 16 92/50 (64) 95 Capillary Refill : General Appearance: No Apparent Distress, WD/WN, Chronically ill, Obese, Other (jaundiced) HEENT: PERRL/EOMI, Normal ENT Inspection, Pharynx Normal Neck: Full Range of Motion, Normal Inspection, Non Tender, Supple, Carotid Bruit Respiratory: Chest Non Tender, Lungs Clear, Normal Breath Sounds, No Accessory Muscle Use, No Respiratory Distress Cardiovascular: Regular Rate, Rhythm, No Edema, No Gallop, No JVD, No Murmur, Normal Peripheral Pulses Gastrointestinal: Normal Bowel Sounds, No Organomegaly, No Pulsatile Mass, Non Tender, Soft Back: Normal Inspection, No CVA Tenderness, No Vertebral Tenderness Extremity: Normal Capillary Refill, Normal Inspection, Normal Range of Motion, Non Tender, No Calf Tenderness, No Pedal Edema Neurologic/Psychiatric: Alert, Oriented x3, day care home provider II-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 FIM Transfers Therapy Code Descriptions/Definitions Functional [place] Measure: 0=Not Assessed/NA 4=Minimal Assistance 1=Total Assistance 5=Supervision or Setup 2=Maximal Assistance 6=Modified [place] 3=Moderate Assistance 7=Complete IndependenceSCALE: Activities may be completed with or without assistive devices. 5-Sfujdhxmlh-xevasli completes the activity by him/herself with no assistance from a helper. 5-Set-up or Clean-up Assistance-helper sets up or cleans up; patient completes activity. [place] assists only prior to or following the activity. 4-Supervision or Touching Assistance-helper provides verbal cues and/or touching/steadying and/or contact guard assistance as patient completes activity. Assistance may be provided throughout the activity or intermittently. 3-Partial/Moderate Assistance-helper does LESS THAN HALF the effort. [place] lifts, holds or supports trunk or limbs, but provides less than half the effort. 2-Substantial/Maximal Assistance-helper does MORE THAN HALF the effort. [place] lifts or holds trunk or limbs and provides more than half the effort. 9-Pbuvynlmo-hcwptc does ALL the effort. Patient does none of the effort to complete the activity. Or, the assistance of 2 or more helpers is required for the patient to complete the activity. If activity was not attempted, code reason: 7-Patient Refused. 9-Not Applicable-not attempted and the patient did not perform the activity before the current illness, exacerbation or injury. 10-Not Attempted due to Environmental Limitations-(lack of equipment, weather restraints, etc.). 88-Not Attempted due to Medical Conditions or Safety Concerns. Roll Left to Right (QC): 3 Sit to Lying (QC): 3 Sit to Stand (QC): 4 Chair/Lez-bw-Qfxdr Xfer(QC): 3 Car Transfer (QC): 3 Gait Training Does the Patient Walk?: Yes Distance: 25' x 2 Walk 10 feet (QC): 4 Walk 50 ft with 2 Turns(QC): 88 Walk 150 ft (QC): 88 Walking 10ft/uneven surface-QC: 3 (with FWW) Gait Persons Needed: 1 Gait Assistive Device: FWW Wheelchair Training Does the Pt Use a Wheelchair?: Yes Wheel 50 ft with 2 turns (QC): 88 Wheel 150 ft (QC): 88 Type of Wheelchair: Manual Stair Training #of Steps: 0 1 Step (curb) (QC): 3 (FWW to step up onto 2" step/mat, cues to not understep walker when placing it up on mat/"curb") 4 Steps (QC): 88 12 Steps (QC): 88 Balance Picking up an Object (QC): 88 ADL-Treatment Eating (QC): 6 Oral Hygiene (QC): 5 (Set up only to brush teeth in chair.) Shower/Bathe Self (QC): 3 (Mod assist overall. Pt. able to bathe chest, face, under arms. She is able to cleanse bilateral LE with LH sponge. OT assists with triny care while in stance.) Upper Body Dressing (QC): 3 (Min A managing shirt down trunk) Lower Body Dressing (QC): 3 (Min/mod assist to doff/don depend. Pt. is issued and educated on adaptive equipment. She utilizes a retail helper to don fresh depends over feet. Able to pull up to thighs and then requires assistance to tub puller bottom and belly.) On/Off Footwear (QC): 3 (Min assist to doff/don slipper socks with use of sock aide and dressing stick.) Toileting Hygiene (QC): 2 (Max assist in stance. Pt. is able to pull down depend, and assist with pulling up fresh one. 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
[2023-02-18 05:33] LABS: LYMPHOCYTES # (AUTO) 0.7 10^3/uL (1.0-4.0)
[2023-02-18 05:35] LABS: BASOPHILS % (AUTO) 1 % (0-10); EOSINOPHILS # (AUTO) 0.1 10^3/uL (0.0-0.3); EOSINOPHILS % (AUTO) 4 % (0-10); HEMATOCRIT 24 % (35-52); HEMOGLOBIN 8.3 g/dL (11.5-16.0); LYMPHOCYTES % (AUTO) 27 % (12-44); MEAN CORPUSCULAR HEMOGLOBIN 38 pg (25-34); MEAN CORPUSCULAR HGB CONC 34 g/dL (32-36); MEAN CORPUSCULAR VOLUME 112 fL (80-99); MEAN PLATELET VOLUME 10.8 fL (9.0-12.2); MONOCYTES # (AUTO) 0.4 10^3/uL (0.0-1.0); MONOCYTES % (AUTO) 14 % (0-12); NEUTROPHILS # (AUTO) 1.4 10^3/uL (1.8-7.8); NEUTROPHILS % (AUTO) 53 % (42-75); WHITE BLOOD COUNT 2.6 10^3/uL (4.3-11.0)
[2023-02-18 05:38] LABS: PLATELET COUNT 30 10^3/uL (130-400)
[2023-02-18 05:49] LABS: INR 2.7 (0.8-1.4); PROTHROMBIN TIME PATIENT 29.4 SEC (12.2-14.7)
[2023-02-18 05:57] LABS: ALBUMIN 2.7 GM/DL (3.2-4.5); BILIRUBIN,TOTAL 10.7 MG/DL (0.1-1.0); CALCIUM 9.4 MG/DL (8.5-10.1); CREATININE SERUM 2.71 MG/DL (0.60-1.30); TOTAL PROTEIN 5.8 GM/DL (6.4-8.2)
[2023-02-18] MEDS: LEVOTHYROXINE 112 MCG (LEVOTHROID) TAB PO SCH (06:35)
[2023-02-18] MEDS: PANTOPRAZOLE 40 MG (PROTONIX) TAB PO SCH (06:35)
[2023-02-18] MEDS: inSUlin ASPART (NovoLOG) 1 UNIT/0.01 ML (CHARGE PER UNIT) SQ SCH ×3 (06:36→16:54)
[2023-02-18 08:00] VITALS: BP 100/51
[2023-02-18] MEDS: RIFAXIMIN 550 MG TABLET (XIFAXAN) PO SCH ×2 (09:00→20:35)
[2023-02-18] MEDS: SPIRONOLACTONE 100 MG (ALDACTONE) TABLET PO SCH (09:00)
[2023-02-18] MEDS: DOCUSATE SODIUM 100 MG (COLACE) CAP PO SCH ×2 (09:00→20:35)
[2023-02-18] MEDS: SENNA W/DOCUSATE (SENOKOT S) TABLET PO SCH ×2 (09:00→20:36)
[2023-02-18] MEDS: BUMETANIDE 1 MG (BUMEX) TAB PO SCH (09:00)
[2023-02-18] MEDS: MIDODRINE 10 MG (PROAMATINE) TAB PO SCH ×3 (09:00→20:35)
[2023-02-18] MEDS: LACTULOSE SYRUP 10GM/15ML (ENULOSE) 30ML UDC PO SCH ×2 (09:01→20:35)
[2023-02-18] MEDS: polyethylene glycoL POWDER 17 GM (MIRALAX) PACK PO SCH ×2 (09:01→20:36)
[2023-02-18] MEDS: meTOprolol TARTRATE 25 MG (LOPRESSOR) TABLET PO SCH ×2 (09:01→20:36)
--- NOTE | 2023-02-18 10:05 | Physical Therapy Daily Note ---
PT Daily Note-Current Subjective No c/o pain this a.m. , just fatigue. States she feels better this a.m. that last Saturday Pain Section J - Health Conditions 1. Rarely or not at all 2. Occasionally 3. Frequently 4. Almost constantly 8. Unable to answer Pain Effect on Sleep: 1 Pain Interference with Therapy: 1 Pain Interference w/Day-to-Day: 1 Transfers SCALE: Activities may be completed with or without assistive devices. 6-Qyvdczgoiz-yhouopy completes the activity by him/herself with no assistance from a helper. 5-Set-up or Clean-up Assistance-helper sets up or cleans up; patient completes activity. [place] assists only prior to or following the activity. 4-Supervision or Touching Assistance-helper provides verbal cues and/or touching/steadying and/or contact guard assistance as patient completes activity. Assistance may be provided throughout the activity or intermittently. 3-Partial/Moderate Assistance-helper does LESS THAN HALF the effort. [place] lifts, holds or supports trunk or limbs, but provides less than half the effort. 2-Substantial/Maximal Assistance-helper does MORE THAN HALF the effort. [place] lifts or holds trunk or limbs and provides more than half the effort. 7-Wtdeqqeqi-ugoswk does ALL the effort. Patient does none of the effort to complete the activity. Or, the assistance of 2 or more helpers is required for the patient to complete the activity. If activity was not attempted, code reason: 7-Patient Refused. 9-Not Applicable-not attempted and the patient did not perform the activity before the current illness, exacerbation or injury. 10-Not Attempted due to Environmental Limitations-(lack of equipment, weather restraints, etc.). 88-Not Attempted due to Medical Conditions or Safety Concerns. Lying to Sitting/Side of Bed(Q: 3 (Min (A) of 1 to pull trunk to upright position.) Sit to Stand (QC): 4 (CGA x 8 to FWW (for toileting, brief, and gait training, and transfer to [facility])) Chair/Vbl-sn-Vwcgk Xfer(QC): 4 (CGA with FWW) Toilet Transfer (QC): 4 (CGA with FWW.) Weight Bearing Weight Bearing/Tolerated Weight Bearing/Tolerated Gait Training Distance: 13' x 4, 15' x 1 CGA with FWW, encouragement to try to increase distance Walk 10 feet (QC): 4 Gait training wiht FWW with encouragment to increase distance took 35' for patient to walk 57' Wheelchair Training Does the Pt Use a Wheelchair?: Yes Type of Wheelchair: Manual SBA to propel 20' with (B) UE's with increased time to complete. Exercises NuStep Minutes: 6 ((6' total, 3" with 2 minute rest, then another3")) NuStep Workload: 2 Assessment ACtivity tolerance is main limiting factor, decreased gait distance this date - patient stated "I have to sit I am too shaky". PT Mcc Goals Senior Solutions Architect Goals PT Senior Solutions Architect Goals Time Frame: Mar 08, 2023 Roll Left & Right (QC): 6 Sit to Lying (QC): 6 Lying-Sitting on Side/Bed(QC): 6 Sit to Stand (QC): 6 Chair/Qwn-fy-Lyquf Xfer(QC): 6 Toilet Transfer (QC): 6 Car Transfer (QC): 5 Does the Patient Walk: Yes Walk 10 feet (QC): 6 Walk 50ft with 2 Turns (QC): 6 Walk 150 ft (QC): 4 Walking 10ft on Uneven Surface: 6 1 Step (curb) (QC): 6 4 Steps (QC): 4 12 Steps (QC): 9 Picking up an Object (QC): 5 Does the Pt use WC or Scooter?: Yes Wheel 50 feet with 2 turns (QC: 6 Type: Manual Wheel 150 feet: 6 PT Plan Treatment/Plan Treatment Plan: Continue Plan of Care Treatment Plan: Bed Mobility, Education, Functional Activity Josie, Functional Strength, Group Therapy, Gait, Safety, Therapeutic Exercise, Transfers Treatment Duration: Mar 08, 2023 Frequency: At least 5 of 7 days/Wk (IRF) Estimated Hrs Per Day: 1.5 hours per day Patient and/or Family Agrees t: Yes Time Time In: 1000 (1105) Time Out: 1105 DATE: Feb 18, 2023 Total Billed Treatment Time: 65 Total Billed Treatment 2 gait, 1 FA, 1 w/c Sybil Perez PT Feb 18, 2023 10:05
--- NOTE | 2023-02-18 12:39 | Occupational Ther Daily Note ---
OT Current Status-Daily Note Subjective Took over care from PT. Pt agrees to therapy. No c/o pain. Mental Status/Objective Patient Orientation: Person, Place, Time, Situation ADL-Treatment Pt agrees to shower. Sitting 100% of the time on shower transfer bench, pt able to complete shower with grabbars, hand held shower and LH sponge. Pt declines to cleanse buttocks. Independent sitting at sink to complete oral care. CGA for SPT from surface to surface. Assist x2 to step up onto step to transfer into bed, then assist x2 to go from EOB to supine. After session, pt lying in bed with call light/phone in reach. All needs met in room. Therapy Code Descriptions/Definitions Functional [place] Measure: 0=Not Assessed/NA 4=Minimal Assistance 1=Total Assistance 5=Supervision or Setup 2=Maximal Assistance 6=Modified [place] 3=Moderate Assistance 7=Complete IndependenceSCALE: Activities may be completed with or without assistive devices. 8-Vmeetrqzzl-mppnhjn completes the activity by him/herself with no assistance from a helper. 5-Set-up or Clean-up Assistance-helper sets up or cleans up; patient completes activity. [place] assists only prior to or following the activity. 4-Supervision or Touching Assistance-helper provides verbal cues and/or touching/steadying and/or contact guard assistance as patient completes ac tivity. Assistance may be provided throughout the activity or intermittently. 3-Partial/Moderate Assistance-helper does LESS THAN HALF the effort. [place] lifts, holds or supports trunk or limbs, but provides less than half the effort. 2-Substantial/Maximal Assistance-helper does MORE THAN HALF the effort. [place] lifts or holds trunk or limbs and provides more than half the effort. 9-Apvsqpmnc-guemoa does ALL the effort. Patient does none of the effort to complete the activity. Or, the assistance of 2 or more helpers is required for the patient to complete the activity. If activity was not attempted, code reason: 7-Patient Refused. 9-Not Applicable-not attempted and the patient did not perform the activity before the current illness, exacerbation or injury. 10-Not Attempted due to Environmental Limitations-(lack of equipment, weather restraints, etc.). 88-Not Attempted due to Medical Conditions or Safety Concerns. Oral Hygiene (QC): 6 Shower/Bathe Self (QC): 3 Upper Body Dressing (QC): 5 (Pt declines regular clothing.) OT Short Term Goals Short Term Goals Time Frame: Mar 01, 2023 Shower/bathe self: 3 Lower body dressin Putting on/taking off footwear: 3 OT Clam Bed Laborer Goals Clam Bed Laborer Goals Time Frame: Mar 15, 2023 Acute change in mental status: 0 Inattention: 0 Disorganized thinkin Altered level of consciousness: 0 Eating (QC): 6 Oral Hygiene (QC): 6 Toileting Hygiene (QC): 6 Shower/Bathe Self (QC): 6 Upper Body Dressing (QC): 6 Lower Body Dressing (QC): 6 On/Off Footwear (QC): 6 Additional Goals: 1-Demonstrate ADL Tasks, 2-Verbalize Understanding, 3- ImproveStrength/Josie 1=Demonstrate adherence to instructed precautions during ADL tasks. 2=Patient will verbalize/demonstrate understanding of assistive devices/modifications for ADL. 3=Patient will improve strength/tolerance for activity to enable patient to perform ADL's. OT Education/Plan Problem List/Assessment Assessment: Decreased Activ Tolerance, Impaired Self-Care Skills Discharge Recommendations Plan/Recommendations: Continue POC Treatment Plan/Plan of Care Patient would benefit from OT for education, treatment and training to promote independence in ADL's, mobility, safety and/or upper extremity function for ADL's. Plan of Care: ADL Retraining, Functional Mobility, Group Exercise/Act as Ind, UE Funct Exercise/Act Treatment Duration: Mar 15, 2023 Frequency: At least 5 of 7 days/Wk (IRF) Estimated Hrs Per Day: 1.5 hours per day Agreement: Yes Rehab Potential: Good Time Start Time: 10:00 Stop Time: 11:00 DATE: Feb 18, 2023 Total Time Billed (hr/min): 60 Billed Treatment Time 1 visit-ADL 4 (60 min) RACHEL LEVI Feb 18, 2023 12:39
[2023-02-18] MEDS: MICONAZOLE 2% POWDER (DESENEX AF) 90 GM TOP SCH ×2 (13:03→20:35)
[2023-02-18] MEDS: HYPOCHLOROUS ACID/NaCl (VASHE) 250 ML IR SCH ×2 (13:03→20:35)
--- NOTE | 2023-02-18 13:15 | Diagnostic Imaging Report ---
PROCEDURE: Pelvic comp/transvaginal sonogram. TECHNIQUE: Complete transabdominal and transvaginal pelvic ultrasound was performed. In addition, limited pelvic Doppler was performed. INDICATION: Vaginal bleeding for one month. FINDINGS: Uterus measures 4.1 x 2.7 x 3.7 cm. Endometrium is abnormally thickened measuring 13 mm. No definite myometrial mass is identified. Ovaries cannot be visualized. Overall quality of the study is significantly compromised due to patient large body habitus. IMPRESSION: 1. Abnormally thickened endometrium in a postmenopausal patient at 13 mm. 2. Nonvisualized ovaries. Dictated by: Dictated on workstation # [id number]
--- NOTE | 2023-02-18 15:39 | Physical Therapy Daily Note ---
PT Daily Note-Current Subjective Pt laying Supine in bed upon arrival. Pt had declined going to Group due to fatigue. Pt agrees to Supine UE & LE EX. Pain Location: No Pain Reported Section J - Health Conditions 1. Rarely or not at all 2. Occasionally 3. Frequently 4. Almost constantly 8. Unable to answer Pain Effect on Sleep: 1 Pain Interference with Therapy: 1 Pain Interference w/Day-to-Day: 1 Mental Status Patient Orientation: Person, Place Transfers SCALE: Activities may be completed with or without assistive devices. 2-Ibfxuasxgz-ebncbnz completes the activity by him/herself with no assistance from a helper. 5-Set-up or Clean-up Assistance-helper sets up or cleans up; patient completes activity. [place] assists only prior to or following the activity. 4-Supervision or Touching Assistance-helper provides verbal cues and/or touching/steadying and/or contact guard assistance as patient completes activity. Assistance may be provided throughout the activity or intermittently. 3-Partial/Moderate Assistance-helper does LESS THAN HALF the effort. [place] lifts, holds or supports trunk or limbs, but provides less than half the effort. 2-Substantial/Maximal Assistance-helper does MORE THAN HALF the effort. [place] lifts or holds trunk or limbs and provides more than half the effort. 1-Jyyoxvfzm-onwkou does ALL the effort. Patient does none of the effort to complete the activity. Or, the assistance of 2 or more helpers is required for the patient to complete the activity. If activity was not attempted, code reason: 7-Patient Refused. 9-Not Applicable-not attempted and the patient did not perform the activity before the current illness, exacerbation or injury. 10-Not Attempted due to Environmental Limitations-(lack of equipment, weather restraints, etc.). 88-Not Attempted due to Medical Conditions or Safety Concerns. Weight Bearing Weight Bearing/Tolerated Weight Bearing/Tolerated Exercises Supine Ex: Ankle pumps, Quad Set, Glut sets, Heel Slides, Short Arc Quads, Straight leg raise, Hip abd/add Supine Reps: 15 Treatments Pt completes Supine UE & LE written HEP to work on strengthening & ROM. UE used w/Green Tband for resistance. Pt takes RB as needed for fatigue. Assessment Current Status: Fair Progress Pt needs VC & TC for instruction at times. Pt fatigues easily and needs frequent RB for recovery. PT [employer] Goals Retirement Goals PT [employer] Goals Time Frame: Mar 08, 2023 Roll Left & Right (QC): 6 Sit to Lying (QC): 6 Lying-Sitting on Side/Bed(QC): 6 Sit to Stand (QC): 6 Chair/Pxp-yp-Boxqz Xfer(QC): 6 Toilet Transfer (QC): 6 Car Transfer (QC): 5 Does the Patient Walk: Yes Walk 10 feet (QC): 6 Walk 50ft with 2 Turns (QC): 6 Walk 150 ft (QC): 4 Walking 10ft on Uneven Surface: 6 1 Step (curb) (QC): 6 4 Steps (QC): 4 12 Steps (QC): 9 Picking up an Object (QC): 5 Does the Pt use WC or Scooter?: Yes Wheel 50 feet with 2 turns (QC: 6 Type: Manual Wheel 150 feet: 6 PT Plan Problem List Problem List: Activity Tolerance, Functional Strength Treatment/Plan Treatment Plan: Continue Plan of Care Treatment Plan: Bed Mobility, Education, Functional Activity Josie, Functional Strength, Group Therapy, Gait, Safety, Therapeutic Exercise, Transfers Treatment Duration: Mar 08, 2023 Frequency: At least 5 of 7 days/Wk (IRF) Estimated Hrs Per Day: 1.5 hours per day Patient and/or Family Agrees t: Yes Safety Risks/Education Patient Education: Correct Positioning, Safety Issues Teaching Recipient: Patient Teaching Methods: Discussion Response to Teaching: Verbalize Understanding Time Time In: 1335 Time Out: 1430 DATE: Feb 18, 2023 Total Billed Treatment Time: 55 Total Billed Treatment 1, EX x4 (55m) JERED VERDUGO [employer] Feb 18, 2023 15:39
--- NOTE | 2023-02-18 15:53 | Physical Therapy Daily Note ---
PT Daily Note-Current Subjective no c/o pain. Sleeping soundly when PT entered room. Patient agreed to bed mobility. Pain Section J - Health Conditions 1. Rarely or not at all 2. Occasionally 3. Frequently 4. Almost constantly 8. Unable to answer Pain Effect on Sleep: 1 Pain Interference with Therapy: 1 Pain Interference w/Day-to-Day: 1 Transfers SCALE: Activities may be completed with or without assistive devices. 9-Gbgtegeaud-tbqylkx completes the activity by him/herself with no assistance from a helper. 5-Set-up or Clean-up Assistance-helper sets up or cleans up; patient completes activity. [place] assists only prior to or following the activity. 4-Supervision or Touching Assistance-helper provides verbal cues and/or touc avinash/steadying and/or contact guard assistance as patient completes activity. Assistance may be provided throughout the activity or intermittently. 3-Partial/Moderate Assistance-helper does LESS THAN HALF the effort. [place] lifts, holds or supports trunk or limbs, but provides less than half the effort. 2-Substantial/Maximal Assistance-helper does MORE THAN HALF the effort. [place] lifts or holds trunk or limbs and provides more than half the effort. 0-Ecpelbkrb-gpqgea does ALL the effort. Patient does none of the effort to complete the activity. Or, the assistance of 2 or more helpers is required for the patient to complete the activity. If activity was not attempted, code reason: 7-Patient Refused. 9-Not Applicable-not attempted and the patient did not perform the activity before the current illness, exacerbation or injury. 10-Not Attempted due to Environmental Limitations-(lack of equipment, weather restraints, etc.). 88-Not Attempted due to Medical Conditions or Safety Concerns. Roll Left & Right (QC): 6 (with use of bed rail x 5 to (R), x 5 to (L).Stephane repositioned and wrinkles removed with each roll.) Scooting up in bed with bed placed in trendelenberg position and UE's pulling on bed rails while therapist braced feet(min-mod (A)) in partial hooklying position Weight Bearing Weight Bearing/Tolerated Weight Bearing/Tolerated Assessment Tolerated bed mobility well without increased pain at panus wound. PT [employer] Goals [employer] Goals PT [facility] Goals Time Frame: Mar 08, 2023 Roll Left & Right (QC): 6 Sit to Lying (QC): 6 Lying-Sitting on Side/Bed(QC): 6 Sit to Stand (QC): 6 Chair/Mie-jq-Ryjyf Xfer(QC): 6 Toilet Transfer (QC): 6 Car Transfer (QC): 5 Does the Patient Walk: Yes Walk 10 feet (QC): 6 Walk 50ft with 2 Turns (QC): 6 Walk 150 ft (QC): 4 Walking 10ft on Uneven Surface: 6 1 Step (curb) (QC): 6 4 Steps (QC): 4 12 Steps (QC): 9 Picking up an Object (QC): 5 Does the Pt use WC or Scooter?: Yes Wheel 50 feet with 2 turns (QC: 6 Type: Manual Wheel 150 feet: 6 PT Plan Treatment/Plan Treatment Plan: Continue Plan of Care Treatment Plan: Bed Mobility, Education, Functional Activity Josie, Functional Strength, Group Therapy, Gait, Safety, Therapeutic Exercise, Transfers Treatment Duration: Mar 08, 2023 Frequency: At least 5 of 7 days/Wk (IRF) Estimated Hrs Per Day: 1.5 hours per day Patient and/or Family Agrees t: Yes Time Time In: 1436 Time Out: 1441 DATE: Feb 18, 2023 Total Billed Treatment Time: 5 (No charge, minutes only) Total Billed Treatment No change, bundled into previous charges. Minute acquisition only. Sybil Perez PT Feb 18, 2023 15:53
[2023-02-18] MEDS: warFARin 2 MG (COUMADIN) TAB PO SCH (16:54)
[2023-02-18 20:31] VITALS: BP 92/50
[2023-02-19] MEDS: ONDANSETRON 4 MG (ZOFRAN) ORAL DISSOLVE TAB PO PRN (00:08)
[2023-02-19] MEDS: LEVOTHYROXINE 112 MCG (LEVOTHROID) TAB PO SCH (06:01)
[2023-02-19] MEDS: ACETAMINOPHEN 325 MG TABLET PO PRN ×2 (06:01→09:42)
[2023-02-19] MEDS: PANTOPRAZOLE 40 MG (PROTONIX) TAB PO SCH (06:01)
[2023-02-19] MEDS: inSUlin ASPART (NovoLOG) 1 UNIT/0.01 ML (CHARGE PER UNIT) SQ SCH ×3 (06:02→17:08)
--- NOTE | 2023-02-19 06:45 | PM&R Progress Note ---
Subjective HPI/CC On Admission Date Seen by Provider: Feb 19, 2023 Time Seen by Provider: 09:00 Subjective/Events-last exam 02/19/2023: Doing well Dr Barragan will consult on DUB Wanted to leave AMA but agreed to have team meeting results reviewed tomorrow and make decision Abdominal pain reported but subtle report 02/18/2023: Doing well No major issues Will send copies of labs to [place] due to increased creatinine Ambulating well TV USG today 02/17/2023: No major events overnight Vaginal bleeding noted and no menses since 2015 when she was dx with OMARI She goes to [facility] every 6 months but she missed recent appt due to hospital stay OMARI was dx in 2015 when she was in hospital at [place] when she had an infected cyst of her kidney TV and Pelvic USG will be performed tomorrow 02/16/2023: No major issues Hypotension is slightly symptomatic No bleeding No falls 02/15/2023: Had a good night Ambulating to the wheelchair and transfers are good TB 10 Still jaundiced Creat 2 Monitoring closely Review of Systems General: Fatigue, Malaise Objective Exam Vital Signs Vital Signs Date Time Temp Pulse Resp B/P (MAP) Pulse Ox O2 Delivery O2 Flow Rate FiO2 02/19/23 21:41 Room Air 02/19/23 20:00 36.4 56 16 83/52 (62) 100 Capillary Refill : General Appearance: No Apparent Distress, WD/WN, Chronically ill, Obese, Other (jaundiced) HEENT: PERRL/EOMI, Normal ENT Inspection, Pharynx Normal Neck: Full Range of Motion, Normal Inspection, Non Tender, Supple, Carotid Bruit Respiratory: Chest Non Tender, Lungs Clear, Normal Breath Sounds, No Accessory Muscle Use, No Respiratory Distress Cardiovascular: Regular Rate, Rhythm, No Edema, No Gallop, No JVD, No Murmur, Normal Peripheral Pulses Gastrointestinal: Normal Bowel Sounds, No Organomegaly, No Pulsatile Mass, Non Tender, Soft Back: Normal Inspection, No CVA Tenderness, No Vertebral Tenderness Extremity: Normal Capillary Refill, Normal Inspection, Normal Range of Motion, Non Tender, No Calf Tenderness, No Pedal Edema Neurologic/Psychiatric: Alert, Oriented x3, child psychology teacher II-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 FIM Transfers Therapy Code Descriptions/Definitions Functional [place] Measure: 0=Not Assessed/NA 4=Minimal Assistance 1=Total Assistance 5=Supervision or Setup 2=Maximal Assistance 6=Modified [place] 3=Moderate Assistance 7=Complete IndependenceSCALE: Activities may be completed with or without assistive devices. 0-Ecmnivgpdm-mbyuvbf completes the activity by him/herself with no assistance from a helper. 5-Set-up or Clean-up Assistance-helper sets up or cleans up; patient completes activity. [place] assists only prior to or following the activity. 4-Supervision or Touching Assistance-helper provides verbal cues and/or touching/steadying and/or contact guard assistance as patient completes activity. Assistance may be provided throughout the activity or intermittently. 3-Partial/Moderate Assistance-helper does LESS THAN HALF the effort. [place] lifts, holds or supports trunk or limbs, but provides less than half the effort. 2-Substantial/Maximal Assistance-helper does MORE THAN HALF the effort. [place] lifts or holds trunk or limbs and provides more than half the effort. 0-Qynnlzurl-fqfyjw does ALL the effort. Patient does none of the effort to complete the activity. Or, the assistance of 2 or more helpers is required for the patient to complete the activity. If activity was not attempted, code reason: 7-Patient Refused. 9-Not Applicable-not attempted and the patient did not perform the activity before the current illness, exacerbation or injury. 10-Not Attempted due to Environmental Limitations-(lack of equipment, weather restraints, etc.). 88-Not Attempted due to Medical Conditions or Safety Concerns. Roll Left to Right (QC): 6 (with use of bed rail x 5 to (R), x 5 to (L).Stephane repositioned and wrinkles removed with each roll.) Sit to Lying (QC): 3 Sit to Stand (QC): 4 (CGA x 8 to FWW (for toileting, brief, and gait training, and transfer to st)) Chair/Cdx-ln-Yhikw Xfer(QC): 4 (CGA with FWW) Car Transfer (QC): 3 Gait Training Does the Patient Walk?: Yes Distance: 13' x 4, 15' x 1 CGA with FWW, encouragement to try to increase distance Walk 10 feet (QC): 4 Walk 50 ft with 2 Turns(QC): 88 Walk 150 ft (QC): 88 Walking 10ft/uneven surface-QC: 3 (with FWW) Gait Persons Needed: 1 Gait Assistive Device: FWW Wheelchair Training Does the Pt Use a Wheelchair?: Yes Wheel 50 ft with 2 turns (QC): 88 Wheel 150 ft (QC): 88 Type of Wheelchair: Manual Stair Training #of Steps: 0 1 Step (curb) (QC): 3 (FWW to step up onto 2" step/mat, cues to not understep walker when placing it up on mat/"curb") 4 Steps (QC): 88 12 Steps (QC): 88 Balance Picking up an Object (QC): 88 ADL-Treatment Eating (QC): 6 Oral Hygiene (QC): 6 Shower/Bathe Self (QC): 3 Upper Body Dressing (QC): 5 (Pt declines regular clothing.) Lower Body Dressing (QC): 3 (Min/mod assist to doff/don depend. Pt. is issued and educated on adaptive equipment. She utilizes a skiver operator to don fresh depends over feet. Able to pull up to thighs and then requires assistance to clod puller bottom and belly.) On/Off Footwear (QC): 3 (Min assist to doff/don slipper socks with use of sock aide and dressing stick.) Toileting Hygiene (QC): 2 (Max assist in stance. Pt. is able to pull down depend, and assist with pulling up fresh one. 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
[2023-02-19 08:00] VITALS: BP 92/55
[2023-02-19] MEDS: RIFAXIMIN 550 MG TABLET (XIFAXAN) PO SCH ×2 (09:28→20:10)
[2023-02-19] MEDS: LACTULOSE SYRUP 10GM/15ML (ENULOSE) 30ML UDC PO SCH (09:28)
[2023-02-19] MEDS: MIDODRINE 10 MG (PROAMATINE) TAB PO SCH ×3 (09:30→20:10)
[2023-02-19] MEDS: meTOprolol TARTRATE 25 MG (LOPRESSOR) TABLET PO SCH ×2 (09:43→21:13)
[2023-02-19] MEDS: SPIRONOLACTONE 100 MG (ALDACTONE) TABLET PO SCH (09:44)
[2023-02-19] MEDS: BUMETANIDE 1 MG (BUMEX) TAB PO SCH (09:44)
[2023-02-19] MEDS: polyethylene glycoL POWDER 17 GM (MIRALAX) PACK PO SCH ×2 (09:47→20:34)
[2023-02-19] MEDS: DOCUSATE SODIUM 100 MG (COLACE) CAP PO SCH ×2 (09:47→20:09)
[2023-02-19] MEDS: SENNA W/DOCUSATE (SENOKOT S) TABLET PO SCH ×2 (09:48→20:09)
[2023-02-19] MEDS: MICONAZOLE 2% POWDER (DESENEX AF) 90 GM TOP SCH ×2 (10:12→20:34)
[2023-02-19] MEDS: HYPOCHLOROUS ACID/NaCl (VASHE) 250 ML IR SCH ×2 (10:12→20:19)
--- NOTE | 2023-02-19 10:38 | Consultation ---
History of Present Illness History of Present Illness Patient Consulted On(thelma/time) 02/19/23 10:28 Date Seen by Provider: Feb 19, 2023 Time Seen by Provider: 11:30 Reason for Visit: Hepatic encephalopathy History of Present Illness This 52 yo female is a patient admitted to IP rehab due to hepatic encephalopathy. I was consulted by Dr. Romero due to DUB and thickened endometrium noted on US. Patient has mild confusion but seems to have been dealing with this for some time. She is on chronic anticoagulation therapy due to history of PE, but also has other repercussions from her end stage liver failure that are complicating her current admission. She is presumptively menopausal for over five years although no FSH confirmation was performed, this is like appropriately physiologic menopause. Allergies and Home Medications Allergies Coded Allergies: No Allergy Information Available (Unverified , 02/14/23) Patient Home Medication List Home Medication List Reviewed: Yes Acetaminophen (Tylenol 8 Hour) 650 Mg Tablet.er, 650 MG PO Q6H PRN for PAIN-MILD (1-4), (Reported) Entered as Reported by: BRUCE MAHONEY on 02/14/231626 Last Action: Held Bumetanide (Bumetanide) 1 Mg Tablet, 1 MG PO DAILY, (Reported) Entered as Reported by: BRUCE MAHONEY on 02/14/231626 Last Action: Continued Citalopram Hydrobromide (Citalopram HBr) 20 Mg Tablet, 20 MG PO DAILY, (Reported) Entered as Reported by: BRUCE MAHONEY on 02/14/231626 Last Action: Continued Dulaglutide (Trulicity) 3 Mg/0.5 Ml Pen.injctr, 3 MG SQ WEEK, (Reported) Entered as Reported by: BRUCE MAHONEY on 02/14/231626 Last Action: Converted Insulin Aspart (Insulin Aspart) 100 Unit/Ml Vial, 4 UNIT SQ AC, (Reported) Entered as Reported by: BRUCE MAHONEY on 02/14/231626 Last Action: Continued Insulin Determir (Levemir) 100 Unit/Ml Soln, 12 UNITS SQ HS, (Reported) Entered as Reported by: BRUCE MAHONEY on 02/14/231626 Last Action: Continued Lactulose (Lactulose) 20 Gram/30 Ml Solution, 30 ML PO DAILY, (Reported) Entered as Reported by: BRUCE MAHONEY on 02/14/231626 Last Action: Continued Levothyroxine Sodium (Levothyroxine Sodium) 112 Mcg Tablet, 112 MCG PO DAILY, (Reported) Entered as Reported by: BRUCE MAHONEY on 02/14/231626 Last Action: Continued Metoprolol Tartrate (Metoprolol Tartrate) 25 Mg Tablet, 12.5 MG PO BID, (Reported) Entered as Reported by: BRUCE MAHONEY on 02/14/231626 Last Action: Continued Midodrine HCl (Midodrine HCl) 10 Mg Tablet, 10 MG PO Q8H, (Reported) Entered as Reported by: BRUCE MAHONEY on 02/14/231626 Last Action: Continued Pantoprazole Sodium (Pantoprazole Sodium) 40 Mg Tablet.dr, 40 MG PO DAILY BEFORE BREAKFAST, (Reported) Entered as Reported by: BRUCE MAHONEY on 02/14/231626 Last Action: Continued Rifaximin (Xifaxan) 550 Mg Tablet, 550 MG PO Q12H, (Reported) Entered as Reported by: BRUCE MAHONEY on 02/14/231626 Last Action: Continued Spironolactone (Spironolactone) 100 Mg Tablet, 150 MG PO DAILY, (Reported) Entered as Reported by: BRUCE MAHONEY on 02/14/231626 Last Action: Continued Warfarin Sodium (Warfarin Sodium) 2 Mg Tablet, 2 MG PO DAILY, (Reported) Entered as Reported by: BRUCE MAHONEY on 02/14/231626 Last Action: Continued Past Gmgjwqb-Ddolvf-Upijax Hx Patient Social History Tobacco Use?: No Smoking Status: Never a Smoker Smokeless Tobacco Frequency: Never a User Substance use?: No Alcohol Use?: No Pt feels they are or have been: No Immunizations Up To Date Influenza Vaccine Up-to-Date: Yes; Up-to-Date COVID19 Vaccine 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 Currently Using CPAP: Yes Currently Using BIPAP: No Atrial Fibrillation, High Cholesterol, Hypertension Renal Failure Cirrhosis Arthritis, Chronic Back Pain Diabetes, Insulin dep Review of Systems-General Constitutional: see HPI EENTM: see HPI Respiratory: see HPI Cardiovascular: see HPI Gastrointestinal: see HPI Genitourinary: see HPI : No Musculoskeletal: see HPI Skin: see HPI Psychiatric/Neurological: See HPI All Other Systems Reviewed Negative Unless Noted: Yes Physical Exam-General Problems Physical Exam Vital Signs Vital Signs - First Documented 02/14/23 02/14/23 16:38 19:27 Temp 36.7 Pulse 53 Resp 20 B/P (MAP) 90/52 (65) Pulse Ox 98 O2 Delivery Room Air Capillary Refill : General Appearance: WD/WN, no apparent distress HEENT: PERRL/EOMI Comments US NON OB PELVIS COMP/TRANSVAG PROCEDURE: Pelvic comp/transvaginal sonogram. TECHNIQUE: Complete transabdominal and transvaginal pelvic ultrasound was performed. In addition, limited pelvic Doppler was performed. INDICATION: Vaginal bleeding for one month. FINDINGS: Uterus measures 4.1 x 2.7 x 3.7 cm. Endometrium is abnormally thickened measuring 13 mm. No definite myometrial mass is identified. Ovaries cannot be visualized. Overall quality of the study is significantly compromised due to patient large body habitus. IMPRESSION: 1. Abnormally thickened endometrium in a postmenopausal patient at 13 mm. 2. Nonvisualized ovaries. Dictated by: Dictated on workstation # [id number] Assessment/Plan Assessment/Plan Admission Diagnosis/Plan Diagnosis: 52 yo female with PMB Thickened endometrium on US Chronic blood loss anemia/ anemia of chronic disease Thrombocytopenia On fci anticoagulation therapy. Plan: Although the thickened on US could potential be blood product due to her anticoagulation therapy and thrombocytopenia, endometrial biopsy/sampling is necessary in any presumed menopausal female if PMB occurs, thickening of the endometrium on US is another reason to get a sample to r/o malignancy. Although I would prefer to perform a d and c on this patient to clear the thickening of the lining, her current status make her not a candidate. Coagulopathy will have to be stable and controlled INR, as well as platelet count closer to normal. I would prefer follow up in office for endometrial biospy there once this is all stabilized. In the meantime more pressing matters are being addressed, and she is on the transplant list at [facility]. WIll follow up with patient outpatient and discuss plan of care, based on stability of her situation then. Admission Status: Inpatient Order (span 2 midnights) GABRIELA FERRER DO Feb 19, 2023 10:38
--- NOTE | 2023-02-19 11:04 | Occupational Ther Daily Note ---
OT Current Status-Daily Note Subjective Pt in bed, agreeable to therapy with some encouragement. Pt encouraged to have family bring in toileting aide from home for pt to use while she is on rehab, she verbalized understanding. ADL-Treatment Therapy Code Descriptions/Definitions Functional [place] Measure: 0=Not Assessed/NA 4=Minimal Assistance 1=Total Assistance 5=Supervision or Setup 2=Maximal Assistance 6=Modified [place] 3=Moderate Assistance 7=Complete IndependenceSCALE: Activities may be completed with or without assistive devices. 1-Dwfrhhwwvg-vqyngmq completes the activity by him/herself with no assistance from a helper. 5-Set-up or Clean-up Assistance-helper sets up or cleans up; patient completes activity. [place] assists only prior to or following the activity. 4-Supervision or Touching Assistance-helper provides verbal cues and/or touching/steadying and/or contact guard assistance as patient completes activity. Assistance may be provided throughout the activity or intermittently. 3-Partial/Moderate Assistance-helper does LESS THAN HALF the effort. [place] lifts, holds or supports trunk or limbs, but provides less than half the effort. 2-Substantial/Maximal Assistance-helper does MORE THAN HALF the effort. [place] lifts or holds trunk or limbs and provides more than half the effort. 3-Xhseljctz-xduhqm does ALL the effort. Patient does none of the effort to complete the activity. Or, the assistance of 2 or more helpers is required for the patient to complete the activity. If activity was not attempted, code reason: 7-Patient Refused. 9-Not Applicable-not attempted and the patient did not perform the activity before the current illness, exacerbation or injury. 10-Not Attempted due to Environmental Limitations-(lack of equipment, weather restraints, etc.). 88-Not Attempted due to Medical Conditions or Safety Concerns. Lower Body Dressing (QC): 3 (Mod A with AE.) On/Off Footwear: 3 (Min A with AE.) Other Treatment OT/Pt cotreat due to skill of 2 clinicians required which a rehab nursing tech could not perform in order to coordinate UE/LEs, decrease fall risk, and due to pt's limitations in strength, activity tolerance, mobility and transfers. OT focused on UE placement, cues for sequencing and safety and ADLs, PT focused on LE placement, gross overall movement, transfers and mobility. Pt transferred supine to sit EOB, then donned footwear and LE dressing using AE. Pt required encouragement to complete tasks herself. Pt performed functional mobility x3 rounds using FWW, pt appeared to self limit stating she can only go so far, with encouragement, pt able to go twice as far as when she originally stated she needed to sit. Pt taken back to her room via w/c, transferred to recliner. Please refer to PT tx note for QC scores associated with mobility/transfers and distance. Post tx, pt in recliner, call light in reach and all needs met. Education OT Patient Education: Correct positioning, Energy conservation, Modified ADL techniques, Progress toward Goal/Update tx plan, Purpose of tx/functional activities, Rehab process Teaching Recipient: Patient Teaching Methods: Discussion Response to Teaching: Verbalize Understanding, Reinforcement Needed OT Short Term Goals Short Term Goals Time Frame: Mar 01, 2023 Shower/bathe self: 3 Lower body dressin Putting on/taking off footwear: 3 OT Adapted Physical Education Teacher Goals Assisted Goals Time Frame: Mar 15, 2023 Acute change in mental status: 0 Inattention: 0 Disorganized thinkin Altered level of consciousness: 0 Eating (QC): 6 Oral Hygiene (QC): 6 Toileting Hygiene (QC): 6 Shower/Bathe Self (QC): 6 Upper Body Dressing (QC): 6 Lower Body Dressing (QC): 6 On/Off Footwear (QC): 6 Additional Goals: 1-Demonstrate ADL Tasks, 2-Verbalize Understanding, 3- ImproveStrength/Josie 1=Demonstrate adherence to instructed precautions during ADL tasks. 2=Patient will verbalize/demonstrate understanding of assistive devices/modifications for ADL. 3=Patient will improve strength/tolerance for activity to enable patient to perform ADL's. OT Education/Plan Problem List/Assessment Assessment: Decreased Activ Tolerance, Decreased UE Strength, Impaired Funct Balance, Impaired I ADL's, Impaired Self-Care Skills Discharge Recommendations Plan/Recommendations: Continue POC Treatment Plan/Plan of Care Patient would benefit from OT for education, treatment and training to promote independence in ADL's, mobility, safety and/or upper extremity function for ADL's. Plan of Care: ADL Retraining, Functional Mobility, Group Exercise/Act as Ind, UE Funct Exercise/Act Treatment Duration: Mar 15, 2023 Frequency: At least 5 of 7 days/Wk (IRF) Estimated Hrs Per Day: 1.5 hours per day Agreement: Yes Rehab Potential: Good Time Start Time: 10:00 Stop Time: 11:00 DATE: Feb 19, 2023 Total Time Billed (hr/min): 60 Billed Treatment Time cotreat x60' 1, ADL 2 (30'), FA 2 (30') KEELY WILLIAMSON OT Feb 19, 2023 11:04
[2023-02-19] MEDS ORDERED: BUME2TAB7 PO (12:23)
[2023-02-19] MEDS ORDERED: METO2.5T PO (12:23)
[2023-02-19] MEDS ORDERED: INSU100I40 SC (12:29)
[2023-02-19] MEDS ORDERED: POTA10TA PO (12:29)
[2023-02-19 13:41] VITALS: BP 94/67
--- NOTE | 2023-02-19 13:50 | Occupational Ther Daily Note ---
OT Current Status-Daily Note Subjective Pt in bed, agreeable to OT Tx. Pt states she is slightly nauseous this afternoon, RN aware. ADL-Treatment Therapy Code Descriptions/Definitions Functional [place] Measure: 0=Not Assessed/NA 4=Minimal Assistance 1=Total Assistance 5=Supervision or Setup 2=Maximal Assistance 6=Modified [place] 3=Moderate Assistance 7=Complete IndependenceSCALE: Activities may be completed with or without assistive devices. 3-Bmvflxcwoi-hfgkwyx completes the activity by him/herself with no assistance from a helper. 5-Set-up or Clean-up Assistance-helper sets up or cleans up; patient completes activity. [place] assists only prior to or following the activity. 4-Supervision or Touching Assistance-helper provides verbal cues and/or touching/steadying and/or contact guard assistance as patient completes activity. Assistance may be provided throughout the activity or intermittently. 3-Partial/Moderate Assistance-helper does LESS THAN HALF the effort. [place] lifts, holds or supports trunk or limbs, but provides less than half the effort. 2-Substantial/Maximal Assistance-helper does MORE THAN HALF the effort. [place] lifts or holds trunk or limbs and provides more than half the effort. 5-Dbhlslioq-hsdtwt does ALL the effort. Patient does none of the effort to complete the activity. Or, the assistance of 2 or more helpers is required for the patient to complete the activity. If activity was not attempted, code reason: 7-Patient Refused. 9-Not Applicable-not attempted and the patient did not perform the activity before the current illness, exacerbation or injury. 10-Not Attempted due to Environmental Limitations-(lack of equipment, weather restraints, etc.). 88-Not Attempted due to Medical Conditions or Safety Concerns. Other Treatment Pt in bed, completed BUE exercises in order to increase strength and activity tolerance. Pt completed x15 reps, 5/5 theraband exercises (mod-heavy green resistance), BUEs. Pt took rest breaks as needed. VCs for pt to complete entire movement vs small movements. Post tx, pt in bed, call light in reach and all needs met. OT Short Term Goals Short Term Goals Time Frame: Mar 01, 2023 Shower/bathe self: 3 Lower body dressin Putting on/taking off footwear: 3 OT [facility] Goals Job Hand Goals Time Frame: Mar 15, 2023 Acute change in mental status: 0 Inattention: 0 Disorganized thinkin Altered level of consciousness: 0 Eating (QC): 6 Oral Hygiene (QC): 6 Toileting Hygiene (QC): 6 Shower/Bathe Self (QC): 6 Upper Body Dressing (QC): 6 Lower Body Dressing (QC): 6 On/Off Footwear (QC): 6 Additional Goals: 1-Demonstrate ADL Tasks, 2-Verbalize Understanding, 3- ImproveStrength/Josie 1=Demonstrate adherence to instructed precautions during ADL tasks. 2=Patient will verbalize/demonstrate understanding of assistive devices/modifications for ADL. 3=Patient will improve strength/tolerance for activity to enable patient to perform ADL's. OT Education/Plan Problem List/Assessment Assessment: Decreased Activ Tolerance, Decreased UE Strength, Impaired Funct Balance, Impaired I ADL's, Impaired Self-Care Skills Discharge Recommendations Plan/Recommendations: Continue POC Treatment Plan/Plan of Care Patient would benefit from OT for education, treatment and training to promote independence in ADL's, mobility, safety and/or upper extremity function for ADL's. Plan of Care: ADL Retraining, Functional Mobility, Group Exercise/Act as Ind, UE Funct Exercise/Act Treatment Duration: Mar 15, 2023 Frequency: At least 5 of 7 days/Wk (IRF) Estimated Hrs Per Day: 1.5 hours per day Agreement: Yes Rehab Potential: Good Time Start Time: 13:30 Stop Time: 14:00 DATE: Feb 19, 2023 Total Time Billed (hr/min): 30 Billed Treatment Time 1, EX 2 KEELY WILLIAMSON OT Feb 19, 2023 13:50
--- NOTE | 2023-02-19 15:51 | Physical Therapy Daily Note ---
PT Daily Note-Current Subjective Pt found lying in bed upon entry. Agreed to PT/OT co-treatment. Co-treat with OT for energy conservation. Reports 6/10 pain in abdomen pre-treatment. Pain Section J - Health Conditions 1. Rarely or not at all 2. Occasionally 3. Frequently 4. Almost constantly 8. Unable to answer Pain Effect on Sleep: 1 Pain Interference with Therapy: 1 Pain Interference w/Day-to-Day: 1 Mental Status Patient Orientation: Person, Place, Time Transfers SCALE: Activities may be completed with or without assistive devices. 5-Kplyxhipeg-coclwoo completes the activity by him/herself with no assistance from a helper. 5-Set-up or Clean-up Assistance-helper sets up or cleans up; patient completes activity. [place] assists only prior to or following the activity. 4-Supervision or Touching Assistance-helper provides verbal cues and/or touching/steadying and/or contact guard assistance as patient completes activity. Assistance may be provided throughout the activity or intermittently. 3-Partial/Moderate Assistance-helper does LESS THAN HALF the effort. [place] lifts, holds or supports trunk or limbs, but provides less than half the effort. 2-Substantial/Maximal Assistance-helper does MORE THAN HALF the effort. [place] lifts or holds trunk or limbs and provides more than half the effort. 8-Jvqcqbybh-uwlhsj does ALL the effort. Patient does none of the effort to complete the activity. Or, the assistance of 2 or more helpers is required for the patient to complete the activity. If activity was not attempted, code reason: 7-Patient Refused. 9-Not Applicable-not attempted and the patient did not perform the activity before the current illness, exacerbation or injury. 10-Not Attempted due to Environmental Limitations-(lack of equipment, weather restraints, etc.). 88-Not Attempted due to Medical Conditions or Safety Concerns. Roll Left & Right (QC): 6 Lying to Sitting/Side of Bed(Q: 4 Sit to Stand (QC): 4 Pt independent with rolling using bedrails. CGA with ly to sit and sit to stand transfers for safety. Weight Bearing Weight Bearing/Tolerated Weight Bearing/Tolerated Gait Training Does the Patient Walk?: Yes Distance: 20, 20, 20 Walk 10 feet (QC): 4 Gait Persons Needed: 1 Gait Assistive Device: FWW Pt ambulated 20 feet x 3 /c FWW, CGA, and WC follow. Displays slow gait cycle and short step length with ambulation. No loss of balance displayed throughout. Assessment Current Status: Fair Progress Pt displays poor tolerance to gait and transfer training due to reported fatigue. Demonstrates no loss of balance or signs of fatigue but requests short seated rest breaks with gait training. Ambulated 20 feet x 3 with CGA and FWW. Continue to progress pt as tolerated per POC to increase strength, endurance, and functional ability. PT Shelter Goals Shelter Goals PT Inorganic Chemistry Teacher Goals Time Frame: Mar 08, 2023 Roll Left & Right (QC): 6 Sit to Lying (QC): 6 Lying-Sitting on Side/Bed(QC): 6 Sit to Stand (QC): 6 Chair/Xuc-ga-Aynds Xfer(QC): 6 Toilet Transfer (QC): 6 Car Transfer (QC): 5 Does the Patient Walk: Yes Walk 10 feet (QC): 6 Walk 50ft with 2 Turns (QC): 6 Walk 150 ft (QC): 4 Walking 10ft on Uneven Surface: 6 1 Step (curb) (QC): 6 4 Steps (QC): 4 12 Steps (QC): 9 Picking up an Object (QC): 5 Does the Pt use WC or Scooter?: Yes Wheel 50 feet with 2 turns (QC: 6 Type: Manual Wheel 150 feet: 6 PT Plan Treatment/Plan Treatment Plan: Continue Plan of Care Treatment Plan: Bed Mobility, Education, Functional Activity Josie, Functional Strength, Group Therapy, Gait, Safety, Therapeutic Exercise, Transfers Treatment Duration: Mar 08, 2023 Frequency: At least 5 of 7 days/Wk (IRF) Estimated Hrs Per Day: 1.5 hours per day Patient and/or Family Agrees t: Yes Time Time In: 1000 Time Out: 1100 DATE: Feb 19, 2023 Total Billed Treatment Time: 60 Total Billed Treatment 1 visit GT x 2 FA x 2 Co-treatment time: 60 minutes Total treatment time: 60 minutes ZACHARIAH SALDANA PTA Feb 19, 2023 15:51
--- NOTE | 2023-02-19 15:57 | Physical Therapy Daily Note ---
PT Daily Note-Current Subjective Pt found laying in bed upon entry. Agreed to PT. States that she is very fatigued and does not feel like getting out of bed. Does not report any pain pre-treatment. Pain Section J - Health Conditions 1. Rarely or not at all 2. Occasionally 3. Frequently 4. Almost constantly 8. Unable to answer Pain Effect on Sleep: 1 Pain Interference with Therapy: 1 Pain Interference w/Day-to-Day: 1 Mental Status Patient Orientation: Person, Place, Time Transfers SCALE: Activities may be completed with or without assistive devices. 1-Fopfmytcgt-blkefen completes the activity by him/herself with no assistance from a helper. 5-Set-up or Clean-up Assistance-helper sets up or cleans up; patient completes activity. [place] assists only prior to or following the activity. 4-Supervision or Touching Assistance-helper provides verbal cues and/or touching/steadying and/or contact guard assistance as patient completes activity. Assistance may be provided throughout the activity or intermittently. 3-Partial/Moderate Assistance-helper does LESS THAN HALF the effort. [place] lifts, holds or supports trunk or limbs, but provides less than half the effort. 2-Substantial/Maximal Assistance-helper does MORE THAN HALF the effort. [place] lifts or holds trunk or limbs and provides more than half the effort. 5-Olesuwbea-uhvlgk does ALL the effort. Patient does none of the effort to complete the activity. Or, the assistance of 2 or more helpers is required for the patient to complete the activity. If activity was not attempted, code reason: 7-Patient Refused. 9-Not Applicable-not attempted and the patient did not perform the activity before the current illness, exacerbation or injury. 10-Not Attempted due to Environmental Limitations-(lack of equipment, weather restraints, etc.). 88-Not Attempted due to Medical Conditions or Safety Concerns. Weight Bearing Weight Bearing/Tolerated Weight Bearing/Tolerated Gait Training Does the Patient Walk?: No and Walking Goal IS indicated Treatments Supine exercises: Quad sets, hamstring sets, hip abd/add, glute sets, SLRs 15x each. Assessment Current Status: Fair Progress Pt displays good muscle endurance and strength with supine therapeutic exercises. No report or signs of discomfort throughout treatment. Pt has difficulty completing full ROM with SLRs likely due to muscle fatigue. Continue to progress pt as tolerated per POC to increase strength, endurance, and functional ability. PT Adjunct Art History Instructor Goals Adjunct Art History Instructor Goals PT Adjunct Art History Instructor Goals Time Frame: Mar 08, 2023 Roll Left & Right (QC): 6 Sit to Lying (QC): 6 Lying-Sitting on Side/Bed(QC): 6 Sit to Stand (QC): 6 Chair/Ewl-wm-Tnxsx Xfer(QC): 6 Toilet Transfer (QC): 6 Car Transfer (QC): 5 Does the Patient Walk: Yes Walk 10 feet (QC): 6 Walk 50ft with 2 Turns (QC): 6 Walk 150 ft (QC): 4 Walking 10ft on Uneven Surface: 6 1 Step (curb) (QC): 6 4 Steps (QC): 4 12 Steps (QC): 9 Picking up an Object (QC): 5 Does the Pt use WC or Scooter?: Yes Wheel 50 feet with 2 turns (QC: 6 Type: Manual Wheel 150 feet: 6 PT Plan Treatment/Plan Treatment Plan: Continue Plan of Care Treatment Plan: Bed Mobility, Education, Functional Activity Josie, Functional Strength, Group Therapy, Gait, Safety, Therapeutic Exercise, Transfers Treatment Duration: Mar 08, 2023 Frequency: At least 5 of 7 days/Wk (IRF) Estimated Hrs Per Day: 1.5 hours per day Patient and/or Family Agrees t: Yes Time Time In: 1400 Time Out: 1430 DATE: Feb 19, 2023 Total Billed Treatment Time: 30 Total Billed Treatment 1 visit EX x 2 ZACHARIAH SALDANA AT HOME INDEPENDENT CALL CENTER AGENT Feb 19, 2023 15:57
[2023-02-19] MEDS: warFARin 2 MG (COUMADIN) TAB PO SCH (17:09)
--- NOTE | 2023-02-19 19:33 | Progress Note ---
JET GILBERT 02/19/231932: Progress Note I have reviewed all therapy notes for Mariah Chisholm, 52 year old female who was admitted to [facility] on 02/14 From [facility] following a long stay in acute care for an DAVID from hypovolemia and hyponatremia with septic shock from integumentary wounds requiring pressor therapy. During her stay in the rehab unit she has seen PT/OT. She has not been seeing ST. Per PT reports, upon initial evaluation she required partial/moderate assistance with rolling in bed, lying to sitting/side of bed, standing from sitting, transfering from chair to bed, toilet transfers, and car transfers. She requires substantial assistance going from sitting to lying. She could bear weight standing, and could walk up to 36 feet with partial/moderate assistance from 1 person and a FWW. She could propel in a wheelchair up to 30 feet at a time with minimal assistance. By 02/19 She was able to roll in bed independently, could toilet transfer with supervision, and could do all other aspects of transfering with moderate assistance except for going from sitting to lying for which she needed substantial assistance. Her gait appears mostly unchanged requiring FWW and moderate assistance. She was able to use a wheelchair and propel up to 50ft w/ 2 turns before having UE fatigue. She was able to go up 1 step with moderate assistance which she was not able to upon arrival. Per OT reports, upon initial OT evaluation, patient was able to eat and perform oral hygiene with assistance setting up, but needed moderate assistance with dressing her upper body and total assistance with dressing her lower body, bathing, and performing toileting hygiene. By 02/19, patients status was mildly improved with the ability to dress her lower body and feet with moderate assistance. Unclear if other portions of her ADL's have improved based upon chart review. MELISSA LANG DO 02/20/23 0515: Supervisory-Addendum Brief Verification & Attestation Participated in pt care: history, MDM, physical Personally performed: exam, history, MDM, supervision of care Care discussed with: Medical Student Procedures: n/a Results interpretation: Verified all documentation Verification and Attestation of Medical Student E/M Service A medical student performed and documented this service in my presence. I reviewed and verified all information documented by the medical student and made modifications to such information, when appropriate. I personally performed the physical exam and medical decision making. Melissa Lang, Feb 20, 2023,05:15 JET GILBERT Feb 19, 2023 19:33 MELISAS LANG DO Feb 20, 2023 05:15
[2023-02-19 20:00] VITALS: BP 83/52
[2023-02-20] MEDS: PANTOPRAZOLE 40 MG (PROTONIX) TAB PO SCH (06:53)
[2023-02-20] MEDS: LEVOTHYROXINE 112 MCG (LEVOTHROID) TAB PO SCH (06:53)
[2023-02-20] MEDS: inSUlin ASPART (NovoLOG) 1 UNIT/0.01 ML (CHARGE PER UNIT) SQ SCH ×3 (06:53→16:56)
--- NOTE | 2023-02-20 06:55 | PM&R Progress Note ---
Subjective HPI/CC On Admission Date Seen by Provider: Feb 20, 2023 Time Seen by Provider: 09:00 Subjective/Events-last exam 02/20/2023: Overall improved status Moving better Lack of motivation is an issue No pain 02/19/2023: Doing well Dr Barragan will consult on DUB Wanted to leave AMA but agreed to have team meeting results reviewed tomorrow and make decision Abdominal pain reported but subtle report 02/18/2023: Doing well No major issues Will send copies of labs to [facility] due to increased creatinine Ambulating well TV USG today 02/17/2023: No major events overnight Vaginal bleeding noted and no menses since 2015 when she was dx with OMARI She goes to [facility] every 6 months but she missed recent appt due to hospital stay SALCIDO was dx in 2015 when she was in hospital at [facility] when she had an infected cyst of her kidney TV and Pelvic USG will be performed tomorrow 02/16/2023: No major issues Hypotension is slightly symptomatic No bleeding No falls 02/15/2023: Had a good night Ambulating to the wheelchair and transfers are good TB 10 Still jaundiced Creat 2 Monitoring closely Review of Systems General: Fatigue, Malaise Neurological: Weakness, Incoordination Objective Exam Vital Signs Vital Signs Date Time Temp Pulse Resp B/P (MAP) Pulse Ox O2 Delivery O2 Flow Rate FiO2 02/20/23 21:50 97 Room Air 02/20/23 19:13 36.6 61 18 104/51 (68) Capillary Refill : General Appearance: No Apparent Distress, WD/WN, Chronically ill, Obese, Other (jaundiced) HEENT: PERRL/EOMI, Normal ENT Inspection, Pharynx Normal Neck: Full Range of Motion, Normal Inspection, Non Tender, Supple, Carotid Bruit Respiratory: Chest Non Tender, Lungs Clear, Normal Breath Sounds, No Accessory Muscle Use, No Respiratory Distress Cardiovascular: Regular Rate, Rhythm, No Edema, No Gallop, No JVD, No Murmur, Normal Peripheral Pulses Gastrointestinal: Normal Bowel Sounds, No Organomegaly, No Pulsatile Mass, Non Tender, Soft Back: Normal Inspection, No CVA Tenderness, No Vertebral Tenderness Extremity: Normal Capillary Refill, Normal Inspection, Normal Range of Motion, Non Tender, No Calf Tenderness, No Pedal Edema Neurologic/Psychiatric: Alert, Oriented x3, data control clerk II-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 FIM Transfers Therapy Code Descriptions/Definitions Functional [place] Measure: 0=Not Assessed/NA 4=Minimal Assistance 1=Total Assistance 5=Supervision or Setup 2=Maximal Assistance 6=Modified [place] 3=Moderate Assistance 7=Complete IndependenceSCALE: Activities may be completed with or without assistive devices. 7-Vckvlpcidr-vgymvaf completes the activity by him/herself with no assistance from a helper. 5-Set-up or Clean-up Assistance-helper sets up or cleans up; patient completes activity. [place] assists only prior to or following the activity. 4-Supervision or Touching Assistance-helper provides verbal cues and/or touching/steadying and/or contact guard assistance as patient completes activity. Assistance may be provided throughout the activity or intermittently. 3-Partial/Moderate Assistance-helper does LESS THAN HALF the effort. [place] lifts, holds or supports trunk or limbs, but provides less than half the effort. 2-Substantial/Maximal Assistance-helper does MORE THAN HALF the effort. [place] lifts or holds trunk or limbs and provides more than half the effort. 7-Sknrmyagw-iqocdk does ALL the effort. Patient does none of the effort to complete the activity. Or, the assistance of 2 or more helpers is required for the patient to complete the activity. If activity was not attempted, code reason: 7-Patient Refused. 9-Not Applicable-not attempted and the patient did not perform the activity before the current illness, exacerbation or injury. 10-Not Attempted due to Environmental Limitations-(lack of equipment, weather restraints, etc.). 88-Not Attempted due to Medical Conditions or Safety Concerns. Roll Left to Right (QC): 6 Sit to Lying (QC): 3 Sit to Stand (QC): 4 Chair/Dft-vl-Sqggd Xfer(QC): 4 (CGA with FWW) Car Transfer (QC): 3 Gait Training Does the Patient Walk?: No and Walking Goal IS indicated Distance: 20, 20, 20 Walk 10 feet (QC): 4 Walk 50 ft with 2 Turns(QC): 88 Walk 150 ft (QC): 88 Walking 10ft/uneven surface-QC: 3 (with FWW) Gait Persons Needed: 1 Gait Assistive Device: FWW Wheelchair Training Does the Pt Use a Wheelchair?: Yes Wheel 50 ft with 2 turns (QC): 88 Wheel 150 ft (QC): 88 Type of Wheelchair: Manual Stair Training #of Steps: 0 1 Step (curb) (QC): 3 (FWW to step up onto 2" step/mat, cues to not understep walker when placing it up on mat/"curb") 4 Steps (QC): 88 12 Steps (QC): 88 Balance Picking up an Object (QC): 88 ADL-Treatment Eating (QC): 6 Oral Hygiene (QC): 6 Shower/Bathe Self (QC): 3 Upper Body Dressing (QC): 5 (Pt declines regular clothing.) Lower Body Dressing (QC): 3 (Mod A with AE.) On/Off Footwear (QC): 3 (Min A with AE.) Toileting Hygiene (QC): 2 (Max assist in stance. Pt. is able to pull down depend, and assist with pulling up fresh one. 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 Morbid obesity Bacteremia completing Keflex AF w/recent RVR on Coumadin DM insulin dependent HTN LIZBETH on CPAP DAVID recently CKD creat 2.0 DUB ordered USG 02/18/23 revealing abnormal endometrium thickening will consult [facility]IE Plan: PT OT Home meds CPAP to be brought in Insulin 02/15/2023: Monitor closely Labs reviewed Chronic hypotension due to CLD 02/16/2023: Monitor closely Fall risk 02/17/2023: Monitor closely Check TV USG tomorrow 02/18/2023: TVUSG Send copies of labs to Hepatology [facility] 02/19/2023: Evaluate progress tomorrow Patient will not leave AMA today 02/20/2023: Continue to encourage If apathy continues she may need hospice (1) Hepatic encephalopathy LUCY LANG DO Feb 20, 2023 06:55
[2023-02-20 07:34] VITALS: BP 95/44
[2023-02-20] MEDS: polyethylene glycoL POWDER 17 GM (MIRALAX) PACK PO SCH ×2 (07:54→22:03)
[2023-02-20] MEDS: BUMETANIDE 1 MG (BUMEX) TAB PO SCH (08:31)
[2023-02-20] MEDS: RIFAXIMIN 550 MG TABLET (XIFAXAN) PO SCH ×2 (08:31→22:02)
[2023-02-20] MEDS: SPIRONOLACTONE 100 MG (ALDACTONE) TABLET PO SCH (08:31)
[2023-02-20] MEDS: DOCUSATE SODIUM 100 MG (COLACE) CAP PO SCH ×2 (08:31→22:02)
[2023-02-20] MEDS: SENNA W/DOCUSATE (SENOKOT S) TABLET PO SCH ×2 (08:31→22:02)
[2023-02-20] MEDS: MIDODRINE 10 MG (PROAMATINE) TAB PO SCH ×3 (08:31→22:03)
[2023-02-20] MEDS: meTOprolol TARTRATE 25 MG (LOPRESSOR) TABLET PO SCH ×2 (08:32→22:01)
[2023-02-20] MEDS: HYPOCHLOROUS ACID/NaCl (VASHE) 250 ML IR SCH ×2 (08:33→22:04)
[2023-02-20] MEDS: MICONAZOLE 2% POWDER (DESENEX AF) 90 GM TOP SCH ×2 (08:34→22:05)
--- NOTE | 2023-02-20 12:07 | Physical Therapy Daily Note ---
PT Daily Note-Current Subjective No c/o pain, states she fatigues easily and feels weak but after rx states she feels she has made some progress. Pt. has goal of returning to work as she feels this helps her distract herself from her sorrow and mourning of losing family members in recent past. Pt. describes her work and home situation ie stairs and pathways she will need to walk to achieve these goals. Pain Location: No Pain Reported Section J - Health Conditions 1. Rarely or not at all 2. Occasionally 3. Frequently 4. Almost constantly 8. Unable to answer Pain Effect on Sleep: 1 Pain Interference with Therapy: 1 Pain Interference w/Day-to-Day: 1 Mental Status Patient Orientation: Normal For Age Transfers SCALE: Activities may be completed with or without assistive devices. 0-Oxalwzgbpq-mxiqsaj completes the activity by him/herself with no assistance from a helper. 5-Set-up or Clean-up Assistance-helper sets up or cleans up; patient completes activity. [place] assists only prior to or following the activity. 4-Supervision or Touching Assistance-helper provides verbal cues and/or touching/steadying and/or contact guard assistance as patient completes activity. Assistance may be provided throughout the activity or intermittently. 3-Partial/Moderate Assistance-helper does LESS THAN HALF the effort. [place] lifts, holds or supports trunk or limbs, but provides less than half the effort. 2-Substantial/Maximal Assistance-helper does MORE THAN HALF the effort. [place] lifts or holds trunk or limbs and provides more than half the effort. 1-Kflrkthpo-opmslr does ALL the effort. Patient does none of the effort to complete the activity. Or, the assistance of 2 or more helpers is required for the patient to complete the activity. If activity was not attempted, code reason: 7-Patient Refused. 9-Not Applicable-not attempted and the patient did not perform the activity before the current illness, exacerbation or injury. 10-Not Attempted due to Environmental Limitations-(lack of equipment, weather restraints, etc.). 88-Not Attempted due to Medical Conditions or Safety Concerns. Sit to Stand (QC): 4 Chair/Qvh-sw-Xwiqd Xfer(QC): 4 Weight Bearing Weight Bearing/Tolerated Weight Bearing/Tolerated Gait Training Does the Patient Walk?: Yes Walk 10 feet (QC): 4 Walk 50 ft with 2 Turns(QC): 4 Gait Persons Needed: 1 Gait Assistive Device: FWW slow , equal step length, safe use of AD, 50 ft x 1, 25 ft x 2, 35 ft x 1, w/c to follow close behind, limited turning. Pt. alerting this SMASH FIXER when she fatigued. Wheelchair Training Does the Pt Use a Wheelchair?: Yes Wheel 50 ft with 2 turns (QC): 4 Type of Wheelchair: Manual very difficult for pt. fatigued quickly and asked for rest or assistance Exercises Supine Ex: Ankle pumps, Quad Set, Glut sets, Heel Slides, Scooting (up in recl iner indep), Straight leg raise (indep bilat), Hip abd/add Supine Reps: 10 (x2) Seated Therapy Exercises: Ankle pumps, Sit to stand, Long arc quads, Hip flexion, Hip abd/add Seated Reps: 15 Treatments pt. was instructed in use of recliner for head reclined position allowing her to scoot herself up in the recliner for better supine/ reclined position for LE ex etc. , supine LE exs, TRFs sit to stand with instruction for safe use of hands, gait as recorded above, in recliner after Rx, cooley at hand, LEs elevated Assessment Current Status: Good Progress PT Structural Steel Erection Supervisor Goals Detention Goals PT Detention Goals Time Frame: Mar 08, 2023 Roll Left & Right (QC): 6 Sit to Lying (QC): 6 Lying-Sitting on Side/Bed(QC): 6 Sit to Stand (QC): 6 Chair/[place] Xfer(QC): 6 Toilet Transfer (QC): 6 Car Transfer (QC): 5 Does the Patient Walk: Yes Walk 10 feet (QC): 6 Walk 50ft with 2 Turns (QC): 6 Walk 150 ft (QC): 4 Walking 10ft on Uneven Surface: 6 1 Step (curb) (QC): 6 4 Steps (QC): 4 12 Steps (QC): 9 Picking up an Object (QC): 5 Does the Pt use WC or Scooter?: Yes Wheel 50 feet with 2 turns (QC: 6 Type: Manual Wheel 150 feet: 6 PT Plan Treatment/Plan Treatment Plan: Continue Plan of Care Treatment Plan: Bed Mobility, Education, Functional Activity Josie, Functional Strength, Group Therapy, Gait, Safety, Therapeutic Exercise, Transfers Treatment Duration: Mar 08, 2023 Frequency: At least 5 of 7 days/Wk (IRF) Estimated Hrs Per Day: 1.5 hours per day Patient and/or Family Agrees t: Yes Safety Risks/Education Patient Education: Gait Training, Transfer Techniques, Correct Positioning, Safety Issues Teaching Recipient: Patient Teaching Methods: Demonstration, Discussion Response to Teaching: Verbalize Understanding, Return Demonstration, Reinforcement Needed Time Time In: 1100 Time Out: 1200 DATE: Feb 20, 2023 Total Billed Treatment Time: 60 Total Billed Treatment 1,EX25,GT35 FRED ERNANDEZ PTA Feb 20, 2023 12:07
--- NOTE | 2023-02-20 13:00 | Physical Therapy Daily Note ---
PT Daily Note-Current Subjective Pt. agrees to PT OT co Rx. States while she is up walking she has some pain in her left lower abdominal area but not at rest. Pain Numeric Pain Scale: 4 Location: Left Location Body Site: Abdomen Pain Description: Burning Section J - Health Conditions 1. Rarely or not at all 2. Occasionally 3. Frequently 4. Almost constantly 8. Unable to answer Pain Effect on Sleep: 1 Pain Interference with Therapy: 2 Pain Interference w/Day-to-Day: 1 Mental Status Patient Orientation: Normal For Age Transfers SCALE: Activities may be completed with or without assistive devices. 4-Ryijwdlodc-toyocap completes the activity by him/herself with no assistance from a helper. 5-Set-up or Clean-up Assistance-helper sets up or cleans up; patient completes activity. [place] assists only prior to or following the activity. 4-Supervision or Touching Assistance-helper provides verbal cues and/or touching/steadying and/or contact guard assistance as patient completes activity. Assistance may be provided throughout the activity or intermittently. 3-Partial/Moderate Assistance-helper does LESS THAN HALF the effort. [place] lifts, holds or supports trunk or limbs, but provides less than half the effort. 2-Substantial/Maximal Assistance-helper does MORE THAN HALF the effort. [place] lifts or holds trunk or limbs and provides more than half the effort. 9-Zfazzxjmy-scgyrf does ALL the effort. Patient does none of the effort to complete the activity. Or, the assistance of 2 or more helpers is required for the patient to complete the activity. If activity was not attempted, code reason: 7-Patient Refused. 9-Not Applicable-not attempted and the patient did not perform the activity before the current illness, exacerbation or injury. 10-Not Attempted due to Environmental Limitations-(lack of equipment, weather restraints, etc.). 88-Not Attempted due to Medical Conditions or Safety Concerns. Roll Left & Right (QC): 6 Sit to Lying (QC): 3 Sit to Stand (QC): 6 Chair/Vgy-zg-Mjdwa Xfer(QC): 6 with bed at lowest position pt. required assist of 2 2 o bring B LEs into bed. Pt. states she feels she will be able to accomplish this at home but "this weird bed is too hard" (air bed) Weight Bearing Weight Bearing/Tolerated Weight Bearing/Tolerated Gait Training Does the Patient Walk?: Yes Walk 10 feet (QC): 4 Gait Persons Needed: 1 Gait Assistive Device: FWW emphasis on turns , pt. managing FWW well turning left and right 360 degrees slowly and carefully, PT OT coordinating balance and U&L extremity cues for gait, and TRFs Treatments PT OT co Rx for TRF sit to stand and sit to sup as well as gait emphasizing turns in tight spaces 360 deg left and right depicting home situation Assessment Current Status: Good Progress PT Retirement Goals Retirement Goals PT Special Education Teaching Assistant Goals Time Frame: Mar 08, 2023 Roll Left & Right (QC): 6 Sit to Lying (QC): 6 Lying-Sitting on Side/Bed(QC): 6 Sit to Stand (QC): 6 Chair/Ewb-mb-Koiav Xfer(QC): 6 Toilet Transfer (QC): 6 Car Transfer (QC): 5 Does the Patient Walk: Yes Walk 10 feet (QC): 6 Walk 50ft with 2 Turns (QC): 6 Walk 150 ft (QC): 4 Walking 10ft on Uneven Surface: 6 1 Step (curb) (QC): 6 4 Steps (QC): 4 12 Steps (QC): 9 Picking up an Object (QC): 5 Does the Pt use WC or Scooter?: Yes Wheel 50 feet with 2 turns (QC: 6 Type: Manual Wheel 150 feet: 6 PT Plan Treatment/Plan Treatment Plan: Continue Plan of Care Treatment Plan: Bed Mobility, Education, Functional Activity Josie, Functional Strength, Group Therapy, Gait, Safety, Therapeutic Exercise, Transfers Treatment Duration: Mar 08, 2023 Frequency: At least 5 of 7 days/Wk (IRF) Estimated Hrs Per Day: 1.5 hours per day Patient and/or Family Agrees t: Yes Safety Risks/Education Patient Education: Gait Training, Transfer Techniques, Correct Positioning, Disease Process, Safety Issues Teaching Recipient: Patient Teaching Methods: Demonstration, Discussion Response to Teaching: Verbalize Understanding, Return Demonstration, Reinforcement Needed Time Time In: 1230 Time Out: 1300 DATE: Feb 20, 2023 Total Billed Treatment Time: 30 Total Billed Treatment 1,FA10m,GT20m (PT OT co Rx 30m) FRED ERNANDEZ LINES TENDER Feb 20, 2023 13:00
--- NOTE | 2023-02-20 13:15 | Occupational Ther Daily Note ---
OT Current Status-Daily Note Subjective Pt alert, lying in bed. Pt agrees to therapy. No c/o pain. Mental Status/Objective Patient Orientation: Person, Place, Time, Situation ADL-Treatment Pt declines shower, agrees to sponge bath. Min A for supine to EOB. CGA for transfer using FWW from EOB to BSC. Assist for toilet hygiene and clothing manipulation. Max A for footwear. Set up for UBD. Pt cleansed upper body to abdomen then assist for all other areas. After session, pt sitting in recliner with call light/phone in reach. All needs met in room. Therapy Code Descriptions/Definitions Functional [place] Measure: 0=Not Assessed/NA 4=Minimal Assistance 1=Total Assistance 5=Supervision or Setup 2=Maximal Assistance 6=Modified [place] 3=Moderate Assistance 7=Complete IndependenceSCALE: Activities may be completed with or without assistive devices. 4-Vbvdcrystp-bwlurfy completes the activity by him/herself with no assistance from a helper. 5-Set-up or Clean-up Assistance-helper sets up or cleans up; patient completes activity. [place] assists only prior to or following the activity. 4-Supervision or Touching Assistance-helper provides verbal cues and/or touching/steadying and/or contact guard assistance as patient completes activity. Assistance may be provided throughout the activity or intermittently. 3-Partial/Moderate Assistance-helper does LESS THAN HALF the effort. [place] lifts, holds or supports trunk or limbs, but provides less than half the effort. 2-Substantial/Maximal Assistance-helper does MORE THAN HALF the effort. [place] lifts or holds trunk or limbs and provides more than half the effort. 3-Ldpiuzmxn-jzuhlc does ALL the effort. Patient does none of the effort to comp lete the activity. Or, the assistance of 2 or more helpers is required for the patient to complete the activity. If activity was not attempted, code reason: 7-Patient Refused. 9-Not Applicable-not attempted and the patient did not perform the activity before the current illness, exacerbation or injury. 10-Not Attempted due to Environmental Limitations-(lack of equipment, weather restraints, etc.). 88-Not Attempted due to Medical Conditions or Safety Concerns. Oral Hygiene (QC): 6 Shower/Bathe Self (QC): 2 Upper Body Dressing (QC): 5 Lower Body Dressing (QC): 2 On/Off Footwear: 2 Toileting Hygiene (QC): 2 Toilet Transfer (QC): 4 OT Short Term Goals Short Term Goals Time Frame: Mar 01, 2023 Shower/bathe self: 3 Lower body dressin Putting on/taking off footwear: 3 OT [facility] Goals Night Clerk Goals Time Frame: Mar 15, 2023 Acute change in mental status: 0 Inattention: 0 Disorganized thinkin Altered level of consciousness: 0 Eating (QC): 6 Oral Hygiene (QC): 6 Toileting Hygiene (QC): 6 Shower/Bathe Self (QC): 6 Upper Body Dressing (QC): 6 Lower Body Dressing (QC): 6 On/Off Footwear (QC): 6 Additional Goals: 1-Demonstrate ADL Tasks, 2-Verbalize Understanding, 3- ImproveStrength/Josie 1=Demonstrate adherence to instructed precautions during ADL tasks. 2=Patient will verbalize/demonstrate understanding of assistive de vices/modifications for ADL. 3=Patient will improve strength/tolerance for activity to enable patient to perform ADL's. OT Education/Plan Problem List/Assessment Assessment: Decreased Activ Tolerance, Impaired Self-Care Skills Discharge Recommendations Plan/Recommendations: Continue POC Treatment Plan/Plan of Care Patient would benefit from OT for education, treatment and training to promote independence in ADL's, mobility, safety and/or upper extremity function for ADL's. Plan of Care: ADL Retraining, Functional Mobility, Group Exercise/Act as Ind, UE Funct Exercise/Act Treatment Duration: Mar 15, 2023 Frequency: At least 5 of 7 days/Wk (IRF) Estimated Hrs Per Day: 1.5 hours per day Agreement: Yes Rehab Potential: Good Time Start Time: 08:00 Stop Time: 09:00 DATE: Feb 20, 2023 Total Time Billed (hr/min): 60 Billed Treatment Time 1 visit-ADL 4 (60 min) RACHEL LEVI Feb 20, 2023 13:15
--- NOTE | 2023-02-20 13:21 | Occupational Ther Daily Note ---
OT Current Status-Daily Note Subjective Pt alert, sitting in recliner. Agrees to therapy. No c/o pain. Co-treat with PT([id number]), skills of 2 clinicians required to decrease fall risks while completing higher level balance tasks and bed mobility. PT focusing on transfers, ambulation and bed mobility while OT focusing on B UE placement during tasks and modifications when necessary to complete tasks independently. Mental Status/Objective Patient Orientation: Person, Place, Time, Situation ADL-Treatment Therapy Code Descriptions/Definitions Functional [place] Measure: 0=Not Assessed/NA 4=Minimal Assistance 1=Total Assistance 5=Supervision or Setup 2=Maximal Assistance 6=Modified [place] 3=Moderate Assistance 7=Complete IndependenceSCALE: Activities may be completed with or without assistive devices. 5-Nalcuovvhv-gsmfyin completes the activity by him/herself with no assistance from a helper. 5-Set-up or Clean-up Assistance-helper sets up or cleans up; patient completes activity. [place] assists only prior to or following the activity. 4-Supervision or Touching Assistance-helper provides verbal cues and/or touching/steadying and/or contact guard assistance as patient completes activity. Assistance may be provided throughout the activity or intermittently. 3-Partial/Moderate Assistance-helper does LESS THAN HALF the effort. [place] lifts, holds or supports trunk or limbs, but provides less than half the effort. 2-Substantial/Maximal Assistance-helper does MORE THAN HALF the effort. [place] lifts or holds trunk or limbs and provides more than half the effort. 6-Bggswdkdo-yipaew does ALL the effort. Patient does none of the effort to complete the activity. Or, the assistance of 2 or more helpers is required for the patient to complete the activity. If activity was not attempted, code reason: 7-Patient Refused. 9-Not Applicable-not attempted and the patient did not perform the activity before the current illness, exacerbation or injury. 10-Not Attempted due to Environmental Limitations-(lack of equipment, weather restraints, etc.). 88-Not Attempted due to Medical Conditions or Safety Concerns. Other Treatment Pt demonstrated good sit to stands then working on turns R/L for safety and balance. Pt then required assist x2 to lift B LE into bed. Assist x2 for bed mobility. After therapy, pt lying in bed with call light/phone in reach. All needs met in room. OT Short Term Goals Short Term Goals Time Frame: Mar 01, 2023 Shower/bathe self: 3 Lower body dressin Putting on/taking off footwear: 3 OT [facility] Goals Supervisor Dry Paste Goals Time Frame: Mar 15, 2023 Acute change in mental status: 0 Inattention: 0 Disorganized thinkin Altered level of consciousness: 0 Eating (QC): 6 Oral Hygiene (QC): 6 Toileting Hygiene (QC): 6 Shower/Bathe Self (QC): 6 Upper Body Dressing (QC): 6 Lower Body Dressing (QC): 6 On/Off Footwear (QC): 6 Additional Goals: 1-Demonstrate ADL Tasks, 2-Verbalize Understanding, 3- ImproveStrength/Josie 1=Demonstrate adherence to instructed precautions during ADL tasks. 2=Patient will verbalize/demonstrate understanding of assistive devices/modifications for ADL. 3=Patient will improve strength/tolerance for activity to enable patient to perform ADL's. OT Education/Plan Problem List/Assessment Assessment: Decreased Activ Tolerance, Impaired Self-Care Skills Discharge Recommendations Plan/Recommendations: Continue POC Treatment Plan/Plan of Care Patient would benefit from OT for education, treatment and training to promote independence in ADL's, mobility, safety and/or upper extremity function for ADL's. Plan of Care: ADL Retraining, Functional Mobility, Group Exercise/Act as Ind, UE Funct Exercise/Act Treatment Duration: Mar 15, 2023 Frequency: At least 5 of 7 days/Wk (IRF) Estimated Hrs Per Day: 1.5 hours per day Agreement: Yes Rehab Potential: Good Time Start Time: 12:30 Stop Time: 13:00 DATE: Feb 20, 2023 Total Time Billed (hr/min): 30 Billed Treatment Time 1 visit-FA 2 (30 min) co-treat with PT 30 min RACHEL LEVI Feb 20, 2023 13:21
[2023-02-20] MEDS: warFARin 2 MG (COUMADIN) TAB PO SCH (16:56)
[2023-02-20 19:13] VITALS: BP 104/51
[2023-02-21] MEDS: LEVOTHYROXINE 112 MCG (LEVOTHROID) TAB PO SCH (06:20)
[2023-02-21] MEDS: PANTOPRAZOLE 40 MG (PROTONIX) TAB PO SCH (06:20)
[2023-02-21 07:45] VITALS: BP 101/51
[2023-02-21] MEDS: inSUlin ASPART (NovoLOG) 1 UNIT/0.01 ML (CHARGE PER UNIT) SQ SCH ×3 (07:48→17:01)
[2023-02-21] MEDS: polyethylene glycoL POWDER 17 GM (MIRALAX) PACK PO SCH ×2 (08:24→21:24)
[2023-02-21] MEDS: DOCUSATE SODIUM 100 MG (COLACE) CAP PO SCH ×2 (08:31→21:23)
[2023-02-21] MEDS: SPIRONOLACTONE 100 MG (ALDACTONE) TABLET PO SCH (08:31)
[2023-02-21] MEDS: RIFAXIMIN 550 MG TABLET (XIFAXAN) PO SCH ×2 (08:31→21:23)
[2023-02-21] MEDS: meTOprolol TARTRATE 25 MG (LOPRESSOR) TABLET PO SCH ×2 (08:31→21:13)
[2023-02-21] MEDS: MIDODRINE 10 MG (PROAMATINE) TAB PO SCH ×3 (08:32→21:13)
[2023-02-21] MEDS: BUMETANIDE 1 MG (BUMEX) TAB PO SCH (08:32)
[2023-02-21] MEDS: HYPOCHLOROUS ACID/NaCl (VASHE) 250 ML IR SCH ×2 (08:32→21:23)
[2023-02-21] MEDS: MICONAZOLE 2% POWDER (DESENEX AF) 90 GM TOP SCH ×2 (08:32→21:24)
[2023-02-21] MEDS: SENNA W/DOCUSATE (SENOKOT S) TABLET PO SCH ×2 (08:32→21:23)
--- NOTE | 2023-02-21 09:57 | Occupational Ther Daily Note ---
OT Current Status-Daily Note Subjective Pt in bed, states she is unable to use toilet in her bathroom due to it being too close to the wall. Pt is unable to spread legs far enough apart for hygiene due to toilet paper roll on L side. ADL-Treatment Therapy Code Descriptions/Definitions Functional [place] Measure: 0=Not Assessed/NA 4=Minimal Assistance 1=Total Assistance 5=Supervision or Setup 2=Maximal Assistance 6=Modified [place] 3=Moderate Assistance 7=Complete IndependenceSCALE: Activities may be completed with or without assistive devices. 9-Phzmrsgwhr-lqqcwhs completes the activity by him/herself with no assistance from a helper. 5-Set-up or Clean-up Assistance-helper sets up or cleans up; patient completes activity. [place] assists only prior to or following the activity. 4-Supervision or Touching Assistance-helper provides verbal cues and/or radha gia/steadying and/or contact guard assistance as patient completes activity. Assistance may be provided throughout the activity or intermittently. 3-Partial/Moderate Assistance-helper does LESS THAN HALF the effort. [place] lifts, holds or supports trunk or limbs, but provides less than half the effort. 2-Substantial/Maximal Assistance-helper does MORE THAN HALF the effort. [place] lifts or holds trunk or limbs and provides more than half the effort. 2-Kscnhnwtb-xmjpck does ALL the effort. Patient does none of the effort to complete the activity. Or, the assistance of 2 or more helpers is required for the patient to complete the activity. If activity was not attempted, code reason: 7-Patient Refused. 9-Not Applicable-not attempted and the patient did not perform the activity before the current illness, exacerbation or injury. 10-Not Attempted due to Environmental Limitations-(lack of equipment, weather restraints, etc.). 88-Not Attempted due to Medical Conditions or Safety Concerns. Eating (QC): 6 Shower/Bathe Self (QC): 4 (SBA sponge bath. Pt washed buttocks/periarea supine in bed. able to wash other parts seated EOB, LH sponge for LEs. ) Upper Body Dressing (QC): 5 Lower Body Dressing (QC): 4 (SBA using AE. ) On/Off Footwear: 5 (set up using AE) Other Treatment Pt in bed, completed pericare and posterior hygiene supine, rolling side to side utilizing arm rails as needed. Pt transferred supine to sit EOB, SBA. Pt completed sponge bath and dressing on EOB, using AE as needed. Sit to/from stand transfers SBA from EOB. OT provided education on toilet tongs for pt to try. OT encouraged pt to attempt to get into bathroom and get onto toilet for toileting, she verbalized understanding. Pt transferred sit to supine (assist with LLE). Pt states she is typically able to get LLE into bed at home since her bed is shorter at home. Post tx, pt in bed, call light in reach and all needs met. Education OT Patient Education: Correct positioning, Energy conservation, Modified ADL techniques, Progress toward Goal/Update tx plan, Purpose of tx/functional activities, Rehab process Teaching Recipient: Patient Teaching Methods: Discussion Response to Teaching: Verbalize Understanding OT Short Term Goals Short Term Goals Time Frame: Mar 01, 2023 Shower/bathe self: 3 Lower body dressin Putting on/taking off footwear: 3 OT Tourist Adviser Goals Retirement Goals Time Frame: Mar 15, 2023 Acute change in mental status: 0 Inattention: 0 Disorganized thinkin Altered level of consciousness: 0 Eating (QC): 6 Oral Hygiene (QC): 6 Toileting Hygiene (QC): 6 Shower/Bathe Self (QC): 6 Upper Body Dressing (QC): 6 Lower Body Dressing (QC): 6 On/Off Footwear (QC): 6 Additional Goals: 1-Demonstrate ADL Tasks, 2-Verbalize Understanding, 3- ImproveStrength/Josie 1=Demonstrate adherence to instructed precautions during ADL tasks. 2=Patient will verbalize/demonstrate understanding of assistive devices/modifica tions for ADL. 3=Patient will improve strength/tolerance for activity to enable patient to perform ADL's. OT Education/Plan Problem List/Assessment Assessment: Decreased Activ Tolerance, Decreased UE Strength, Impaired Funct Balance, Impaired I ADL's, Impaired Self-Care Skills Discharge Recommendations Plan/Recommendations: Continue POC Treatment Plan/Plan of Care Patient would benefit from OT for education, treatment and training to promote independence in ADL's, mobility, safety and/or upper extremity function for ADL's. Plan of Care: ADL Retraining, Functional Mobility, Group Exercise/Act as Ind, UE Funct Exercise/Act Treatment Duration: Mar 15, 2023 Frequency: At least 5 of 7 days/Wk (IRF) Estimated Hrs Per Day: 1.5 hours per day Agreement: Yes Rehab Potential: Good Time Start Time: 09:00 Stop Time: 10:00 DATE: Feb 21, 2023 Total Time Billed (hr/min): 60 Billed Treatment Time 1, ADL 4 KEELY WILLIAMSON OT Feb 21, 2023 09:57
--- NOTE | 2023-02-21 10:45 | PM&R Progress Note ---
Subjective HPI/CC On Admission Date Seen by Provider: Feb 21, 2023 Time Seen by Provider: 11:00 Subjective/Events-last exam 02/21/2023: Much improved participation today Education yesterday and family meeting seemed to have resulted on improved participation No pain reported 02/20/2023: Overall improved status Moving better Lack of motivation is an issue No pain 02/19/2023: Doing well Dr Barragan will consult on DUB Wanted to leave AMA but agreed to have team meeting results reviewed tomorrow and make decision Abdominal pain reported but subtle report 02/18/2023: Doing well No major issues Will send copies of labs to [place] due to increased creatinine Ambulating well TV USG today 02/17/2023: No major events overnight Vaginal bleeding noted and no menses since 2015 when she was dx with SALCIDO She goes to [facility] every 6 months but she missed recent appt due to hospital stay SALCIDO was dx in 2015 when she was in hospital at [place] when she had an infected cyst of her kidney TV and Pelvic USG will be performed tomorrow 02/16/2023: No major issues Hypotension is slightly symptomatic No bleeding No falls 02/15/2023: Had a good night Ambulating to the wheelchair and transfers are good TB 10 Still jaundiced Creat 2 Monitoring closely Review of Systems General: Fatigue, Malaise Objective Exam Vital Signs Vital Signs Date Time Temp Pulse Resp B/P (MAP) Pulse Ox O2 Delivery O2 Flow Rate FiO2 02/21/23 21:30 Room Air 02/21/23 20:48 35.6 57 16 91/52 (65) 97 Capillary Refill : General Appearance: No Apparent Distress, WD/WN, Chronically ill, Obese, Other (jaundiced) HEENT: PERRL/EOMI, Normal ENT Inspection, Pharynx Normal Neck: Full Range of Motion, Normal Inspection, Non Tender, Supple, Carotid Bruit Respiratory: Chest Non Tender, Lungs Clear, Normal Breath Sounds, No Accessory Muscle Use, No Respiratory Distress Cardiovascular: Regular Rate, Rhythm, No Edema, No Gallop, No JVD, No Murmur, Normal Peripheral Pulses Gastrointestinal: Normal Bowel Sounds, No Organomegaly, No Pulsatile Mass, Non Tender, Soft Back: Normal Inspection, No CVA Tenderness, No Vertebral Tenderness Extremity: Normal Capillary Refill, Normal Inspection, Normal Range of Motion, Non Tender, No Calf Tenderness, No Pedal Edema Neurologic/Psychiatric: Alert, Oriented x3, semiconductor wafers etch operator II-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 FIM Transfers Therapy Code Descriptions/Definitions Functional [place] Measure: 0=Not Assessed/NA 4=Minimal Assistance 1=Total Assistance 5=Supervision or Setup 2=Maximal Assistance 6=Modified [place] 3=Moderate Assistance 7=Complete IndependenceSCALE: Activities may be completed with or without assistive devices. 7-Bcuyvgqblb-ngrqwvt completes the activity by him/herself with no assistance from a helper. 5-Set-up or Clean-up Assistance-helper sets up or cleans up; patient completes activity. [place] assists only prior to or following the activity. 4-Supervision or Touching Assistance-helper provides verbal cues and/or touc avinash/steadying and/or contact guard assistance as patient completes activity. Assistance may be provided throughout the activity or intermittently. 3-Partial/Moderate Assistance-helper does LESS THAN HALF the effort. [place] lifts, holds or supports trunk or limbs, but provides less than half the effort. 2-Substantial/Maximal Assistance-helper does MORE THAN HALF the effort. [place] lifts or holds trunk or limbs and provides more than half the effort. 8-Rhhudoyjn-hppgzy does ALL the effort. Patient does none of the effort to complete the activity. Or, the assistance of 2 or more helpers is required for the patient to complete the activity. If activity was not attempted, code reason: 7-Patient Refused. 9-Not Applicable-not attempted and the patient did not perform the activity before the current illness, exacerbation or injury. 10-Not Attempted due to Environmental Limitations-(lack of equipment, weather restraints, etc.). 88-Not Attempted due to Medical Conditions or Safety Concerns. Roll Left to Right (QC): 6 Sit to Lying (QC): 3 Sit to Stand (QC): 6 Chair/Zij-pl-Cozqb Xfer(QC): 6 Car Transfer (QC): 3 Gait Training Does the Patient Walk?: Yes Distance: 20, 20, 20 Walk 10 feet (QC): 4 Walk 50 ft with 2 Turns(QC): 4 Walk 150 ft (QC): 88 Walking 10ft/uneven surface-QC: 3 (with FWW) Gait Persons Needed: 1 Gait Assistive Device: FWW Wheelchair Training Does the Pt Use a Wheelchair?: Yes Wheel 50 ft with 2 turns (QC): 4 Wheel 150 ft (QC): 88 Type of Wheelchair: Manual Stair Training #of Steps: 0 1 Step (curb) (QC): 3 (FWW to step up onto 2" step/mat, cues to not understep walker when placing it up on mat/"curb") 4 Steps (QC): 88 12 Steps (QC): 88 Balance Picking up an Object (QC): 88 ADL-Treatment Eating (QC): 6 Oral Hygiene (QC): 6 Shower/Bathe Self (QC): 4 (SBA sponge bath. Pt washed buttocks/periarea supine in bed. able to wash other parts seated EOB, LH sponge for LEs. ) Upper Body Dressing (QC): 5 Lower Body Dressing (QC): 4 (SBA using AE. 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 Morbid obesity Bacteremia completing Keflex AF w/recent RVR on Coumadin DM insulin dependent HTN LIZBETH on CPAP DAVID recently CKD creat 2.0 DUB ordered USG 02/18/23 revealing abnormal endometrium thickening will consult MAIL FORWARDING SYSTEM MARKUP CLERK Plan: PT OT Home meds CPAP to be brought in Insulin 02/15/2023: Monitor closely Labs reviewed Chronic hypotension due to CLD 02/16/2023: Monitor closely Fall risk 02/17/2023: Monitor closely Check TV USG tomorrow 02/18/2023: TVUSG Send copies of labs to Hepatology Gust[facility] 02/19/2023: Evaluate progress tomorrow Patient will not leave AMA today 02/20/2023: Continue to encourage If apathy continues she may need hospice 02/21/2023: Improved overall Increase therapies (1) Hepatic encephalopathy LUCY LANG DO Feb 21, 2023 10:45
--- NOTE | 2023-02-21 11:59 | Occupational Ther Daily Note ---
OT Current Status-Daily Note Subjective Pt agreeable to OT/PT cotreat. ADL-Treatment Therapy Code Descriptions/Definitions Functional [place] Measure: 0=Not Assessed/NA 4=Minimal Assistance 1=Total Assistance 5=Supervision or Setup 2=Maximal Assistance 6=Modified [place] 3=Moderate Assistance 7=Complete IndependenceSCALE: Activities may be completed with or without assistive devices. 7-Toiwgkunvm-gswvzxx completes the activity by him/herself with no assistance from a helper. 5-Set-up or Clean-up Assistance-helper sets up or cleans up; patient completes activity. [place] assists only prior to or following the activity. 4-Supervision or Touching Assistance-helper provides verbal cues and/or touching/steadying and/or contact guard assistance as patient completes activity. Assistance may be provided throughout the activity or intermittently. 3-Partial/Moderate Assistance-helper does LESS THAN HALF the effort. [place] lifts, holds or supports trunk or limbs, but provides less than half the effort. 2-Substantial/Maximal Assistance-helper does MORE THAN HALF the effort. [place] lifts or holds trunk or limbs and provides more than half the effort. 2-Vgkfecvpv-lfcmye does ALL the effort. Patient does none of the effort to complete the activity. Or, the assistance of 2 or more helpers is required for the patient to complete the activity. If activity was not attempted, code reason: 7-Patient Refused. 9-Not Applicable-not attempted and the patient did not perform the activity befo re the current illness, exacerbation or injury. 10-Not Attempted due to Environmental Limitations-(lack of equipment, weather re straints, etc.). 88-Not Attempted due to Medical Conditions or Safety Concerns. Other Treatment OT/Pt cotreat due to skill of 2 clinicians required which a rehabilitation case coordinator could not perform in order to coordinate UE/LEs, decrease fall risk, and due to pt's limitations in strength, activity tolerance, mobility and transfers. OT focused on UE placement, cues for sequencing and safety and ADLs, PT focused on LE placement, gross overall movement, transfers and mobility. Pt transferred supine to sit EOB. Pt performed functional mobility x3 rounds using FWW (50', 80', 30'). Post tx, pt in w/c with PT present, all needs met. Education OT Patient Education: Correct positioning, Energy conservation, Modified ADL techniques, Progress toward Goal/Update tx plan, Purpose of tx/functional activities, Rehab process Teaching Recipient: Patient Teaching Methods: Discussion Response to Teaching: Verbalize Understanding OT Short Term Goals Short Term Goals Time Frame: Mar 01, 2023 Shower/bathe self: 3 Lower body dressin Putting on/taking off footwear: 3 OT Nursing Home Goals Arcade Technician Goals Time Frame: Mar 15, 2023 Acute change in mental status: 0 Inattention: 0 Disorganized thinkin Altered level of consciousness: 0 Eating (QC): 6 Oral Hygiene (QC): 6 Toileting Hygiene (QC): 6 Shower/Bathe Self (QC): 6 Upper Body Dressing (QC): 6 Lower Body Dressing (QC): 6 On/Off Footwear (QC): 6 Additional Goals: 1-Demonstrate ADL Tasks, 2-Verbalize Understanding, 3- ImproveStrength/Josie 1=Demonstrate adherence to instructed precautions during ADL tasks. 2=Patient will verbalize/demonstrate understanding of assistive devices/modifications for ADL. 3=Patient will improve strength/tolerance for activity to enable patient to perform ADL's. OT Education/Plan Problem List/Assessment Assessment: Decreased Activ Tolerance, Decreased UE Strength, Impaired Funct Balance, Impaired I ADL's, Impaired Self-Care Skills Discharge Recommendations Plan/Recommendations: Continue POC Treatment Plan/Plan of Care Patient would benefit from OT for education, treatment and training to promote independence in ADL's, mobility, safety and/or upper extremity function for ADL's. Plan of Care: ADL Retraining, Functional Mobility, Group Exercise/Act as Ind, UE Funct Exercise/Act Treatment Duration: Mar 15, 2023 Frequency: At least 5 of 7 days/Wk (IRF) Estimated Hrs Per Day: 1.5 hours per day Agreement: Yes Rehab Potential: Good Time Start Time: 11:00 Stop Time: 11:30 DATE: Feb 21, 2023 Total Time Billed (hr/min): 30 Billed Treatment Time cotreat x30 1, FA 2 KEELY WILLIAMSON OT Feb 21, 2023 11:59
--- NOTE | 2023-02-21 15:06 | Physical Therapy Daily Note ---
PT Daily Note-Current Subjective Pt asleep in bed upon arrival. Pt agrees to PT. Pain Location: No Pain Reported Section J - Health Conditions 1. Rarely or not at all 2. Occasionally 3. Frequently 4. Almost constantly 8. Unable to answer Pain Effect on Sleep: 1 Pain Interference with Therapy: 2 Pain Interference w/Day-to-Day: 1 Mental Status Patient Orientation: Person, Place, Situation Transfers SCALE: Activities may be completed with or without assistive devices. 8-Hkiwvicvof-anjbksp completes the activity by him/herself with no assistance from a helper. 5-Set-up or Clean-up Assistance-helper sets up or cleans up; patient completes activity. [place] assists only prior to or following the activity. 4-Supervision or Touching Assistance-helper provides verbal cues and/or touching/steadying and/or contact guard assistance as patient completes activity. Assistance may be provided throughout the activity or intermittently. 3-Partial/Moderate Assistance-helper does LESS THAN HALF the effort. [place] lifts, holds or supports trunk or limbs, but provides less than half the effort. 2-Substantial/Maximal Assistance-helper does MORE THAN HALF the effort. [place] lifts or holds trunk or limbs and provides more than half the effort. 1-Dcgwfweki-haaitq does ALL the effort. Patient does none of the effort to complete the activity. Or, the assistance of 2 or more helpers is required for the patient to complete the activity. If activity was not attempted, code reason: 7-Patient Refused. 9-Not Applicable-not attempted and the patient did not perform the activity before the current illness, exacerbation or injury. 10-Not Attempted due to Environmental Limitations-(lack of equipment, weather restraints, etc.). 88-Not Attempted due to Medical Conditions or Safety Concerns. Sit to Stand (QC): 4 Toilet Transfer (QC): 4 Weight Bearing Weight Bearing/Tolerated Weight Bearing/Tolerated Gait Training Does the Patient Walk?: Yes Walk 10 feet (QC): 4 Walk 50 ft with 2 Turns(QC): 4 Gait Persons Needed: 4 Gait Assistive Device: FWW Treatments OT/PT cotreat due to skill of 2 clinicians required which a rehabilitation construction specialist could not perform in order to coordinate UE/LEs, decrease fall risk, and due to pt's limitations in strength, activity tolerance, mobility and transfers. OT focused on UE placement, cues for sequencing and safety and ADLs, PT focused on LE placement, gross overall movement, transfers and mobility. Pt transferred supine to sit EOB. Pt performed functional mobility x3 rounds using FWW (50', 80', 30'). OT departs & PT continues working w/pt. [id number]: Pt propels WC in hallway towards room. Pt uses BR, attempting pericare. APPLICATIONS PROJECT MANAGER assists pt while pt stands before returning to recliner to rest for lunch. All needs met, call light in hand. Assessment Current Status: Fair Progress Pt fatigues easily and needs encouragement to push self for improvement. PT Counter Waitress/Waiter Goals Counter Waitress/Waiter Goals PT Alf Goals Time Frame: Mar 08, 2023 Roll Left & Right (QC): 6 Sit to Lying (QC): 6 Lying-Sitting on Side/Bed(QC): 6 Sit to Stand (QC): 6 Chair/Avf-lq-Qxqgx Xfer(QC): 6 Toilet Transfer (QC): 6 Car Transfer (QC): 5 Does the Patient Walk: Yes Walk 10 feet (QC): 6 Walk 50ft with 2 Turns (QC): 6 Walk 150 ft (QC): 4 Walking 10ft on Uneven Surface: 6 1 Step (curb) (QC): 6 4 Steps (QC): 4 12 Steps (QC): 9 Picking up an Object (QC): 5 Does the Pt use WC or Scooter?: Yes Wheel 50 feet with 2 turns (QC: 6 Type: Manual Wheel 150 feet: 6 PT Plan Problem List Problem List: Activity Tolerance, Functional Strength, Gait, Transfer Treatment/Plan Treatment Plan: Continue Plan of Care Treatment Plan: Bed Mobility, Education, Functional Activity Josie, Functional Strength, Group Therapy, Gait, Safety, Therapeutic Exercise, Transfers Treatment Duration: Mar 08, 2023 Frequency: At least 5 of 7 days/Wk (IRF) Estimated Hrs Per Day: 1.5 hours per day Patient and/or Family Agrees t: Yes Safety Risks/Education Patient Education: Gait Training, Transfer Techniques, Correct Positioning, Safety Issues Teaching Recipient: Patient Teaching Methods: Discussion Response to Teaching: Verbalize Understanding Time Time In: 1100 Time Out: 1200 DATE: Feb 21, 2023 Total Billed Treatment Time: 60 Total Billed Treatment 1, GT x2 (30m), [facility] (15m) & FA (15m) JERED VERDUGO PTA Feb 21, 2023 15:06
--- NOTE | 2023-02-21 15:55 | Physical Therapy Daily Note ---
PT Daily Note-Current Subjective Pt sitting in recliner upon arrival. Pt agrees to PT but asks to use BR to start tx. Pain Location: No Pain Reported Section J - Health Conditions 1. Rarely or not at all 2. Occasionally 3. Frequently 4. Almost constantly 8. Unable to answer Pain Effect on Sleep: 1 Pain Interference with Therapy: 2 Pain Interference w/Day-to-Day: 1 Mental Status Patient Orientation: Person, Place, Situation Transfers SCALE: Activities may be completed with or without assistive devices. 2-Zqntydeqhr-qkzkoui completes the activity by him/herself with no assistance from a helper. 5-Set-up or Clean-up Assistance-helper sets up or cleans up; patient completes a ctivity. [place] assists only prior to or following the activity. 4-Supervision or Touching Assistance-helper provides verbal cues and/or touching/steadying and/or contact guard assistance as patient completes activity. Assistance may be provided throughout the activity or intermittently. 3-Partial/Moderate Assistance-helper does LESS THAN HALF the effort. [place] lifts, holds or supports trunk or limbs, but provides less than half the effort. 2-Substantial/Maximal Assistance-helper does MORE THAN HALF the effort. [place] lifts or holds trunk or limbs and provides more than half the effort. 4-Ehssedkkz-jabdqn does ALL the effort. Patient does none of the effort to complete the activity. Or, the assistance of 2 or more helpers is required for the patient to complete the activity. If activity was not attempted, code reason: 7-Patient Refused. 9-Not Applicable-not attempted and the patient did not perform the activity before the current illness, exacerbation or injury. 10-Not Attempted due to Environmental Limitations-(lack of equipment, weather restraints, etc.). 88-Not Attempted due to Medical Conditions or Safety Concerns. Sit to Lying (QC): 3 Sit to Stand (QC): 4 Toilet Transfer (QC): 4 Weight Bearing Weight Bearing/Tolerated Weight Bearing/Tolerated Gait Training Does the Patient Walk?: Yes Distance: 15' x2 Walk 10 feet (QC): 4 Gait Persons Needed: 1 Gait Assistive Device: FWW Treatments TF to standing and amb to BR. After toileting, pt attempts pericare but PRE ALGEBRA TEACHER needs to assist pt while pt stands due to BM. Pt returns to bed to rest at end of tx & doffs clothing to [facility] gown. All needs met, call light in hand. Assessment Current Status: Fair Progress Pt fatigues easily and needs encouragement to continue to try tasks before asking for assistance. PT Material Control Analyst Goals Long-Term Goals PT Long-Term Goals Time Frame: Mar 08, 2023 Roll Left & Right (QC): 6 Sit to Lying (QC): 6 Lying-Sitting on Side/Bed(QC): 6 Sit to Stand (QC): 6 Chair/Ajo-iy-Xfaso Xfer(QC): 6 Toilet Transfer (QC): 6 Car Transfer (QC): 5 Does the Patient Walk: Yes Walk 10 feet (QC): 6 Walk 50ft with 2 Turns (QC): 6 Walk 150 ft (QC): 4 Walking 10ft on Uneven Surface: 6 1 Step (curb) (QC): 6 4 Steps (QC): 4 12 Steps (QC): 9 Picking up an Object (QC): 5 Does the Pt use WC or Scooter?: Yes Wheel 50 feet with 2 turns (QC: 6 Type: Manual Wheel 150 feet: 6 PT Plan Problem List Problem List: Activity Tolerance, Functional Strength Treatment/Plan Treatment Plan: Continue Plan of Care Treatment Plan: Bed Mobility, Education, Functional Activity Josie, Functional Strength, Group Therapy, Gait, Safety, Therapeutic Exercise, Transfers Treatment Duration: Mar 08, 2023 Frequency: At least 5 of 7 days/Wk (IRF) Estimated Hrs Per Day: 1.5 hours per day Patient and/or Family Agrees t: Yes Safety Risks/Education Patient Education: Transfer Techniques, Correct Positioning, Safety Issues Teaching Recipient: Patient Teaching Methods: Discussion Response to Teaching: Verbalize Understanding Time Time In: 1400 Time Out: 1430 DATE: Feb 21, 2023 Total Billed Treatment Time: 30 Total Billed Treatment 1, FA x2 (30m) JERED VERDUGO PRE ALGEBRA TEACHER Feb 21, 2023 15:54
[2023-02-21] MEDS: warFARin 2 MG (COUMADIN) TAB PO SCH (17:00)
[2023-02-21 20:48] VITALS: BP 91/52
[2023-02-21] MEDS: ACETAMINOPHEN 325 MG TABLET PO PRN (23:27)
[2023-02-22] MEDS: LEVOTHYROXINE 112 MCG (LEVOTHROID) TAB PO SCH (06:43)
[2023-02-22] MEDS: PANTOPRAZOLE 40 MG (PROTONIX) TAB PO SCH (06:43)
[2023-02-22] MEDS: ACETAMINOPHEN 325 MG TABLET PO PRN ×2 (06:56→17:01)
[2023-02-22] MEDS: inSUlin ASPART (NovoLOG) 1 UNIT/0.01 ML (CHARGE PER UNIT) SQ SCH ×3 (06:57→16:58)
[2023-02-22 07:56] VITALS: BP 86/43
--- NOTE | 2023-02-22 08:14 | PM&R Progress Note ---
Subjective HPI/CC On Admission Date Seen by Provider: Feb 22, 2023 Time Seen by Provider: 13:30 Subjective/Events-last exam 02/22/2023: Much improved Sugars improved No falls Participation is good 02/21/2023: Much improved participation today Education yesterday and family meeting seemed to have resulted on improved participation No pain reported 02/20/2023: Overall improved status Moving better Lack of motivation is an issue No pain 02/19/2023: Doing well Dr Barragan will consult on DUB Wanted to leave AMA but agreed to have team meeting results reviewed tomorrow and make decision Abdominal pain reported but subtle report 02/18/2023: Doing well No major issues Will send copies of labs to [facility] due to increased creatinine Ambulating well TV USG today 02/17/2023: No major events overnight Vaginal bleeding noted and no menses since 2015 when she was dx with SALCIDO She goes to [facility] every 6 months but she missed recent appt due to hospital stay SALCIDO was dx in 2015 when she was in hospital at [facility] when she had an infected cyst of her kidney TV and Pelvic USG will be performed tomorrow 02/16/2023: No major issues Hypotension is slightly symptomatic No bleeding No falls 02/15/2023: Had a good night Ambulating to the wheelchair and transfers are good TB 10 Still jaundiced Creat 2 Monitoring closely Review of Systems General: Fatigue, Malaise Objective Exam Vital Signs Vital Signs Date Time Temp Pulse Resp B/P (MAP) Pulse Ox O2 Delivery O2 Flow Rate FiO2 02/22/23 21:49 60 97/61 (73) 02/22/23 21:15 96 NIV CPAP 02/22/23 20:45 36.1 20 Capillary Refill : General Appearance: No Apparent Distress, WD/WN, Chronically ill, Obese, Other (jaundiced) HEENT: PERRL/EOMI, Normal ENT Inspection, Pharynx Normal Neck: Full Range of Motion, Normal Inspection, Non Tender, Supple, Carotid Bruit Respiratory: Chest Non Tender, Lungs Clear, Normal Breath Sounds, No Accessory Muscle Use, No Respiratory Distress Cardiovascular: Regular Rate, Rhythm, No Edema, No Gallop, No JVD, No Murmur, Normal Peripheral Pulses Gastrointestinal: Normal Bowel Sounds, No Organomegaly, No Pulsatile Mass, Non Tender, Soft Back: Normal Inspection, No CVA Tenderness, No Vertebral Tenderness Extremity: Normal Capillary Refill, Normal Inspection, Normal Range of Motion, Non Tender, No Calf Tenderness, No Pedal Edema Neurologic/Psychiatric: Alert, Oriented x3, director workers compensation II-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 FIM Transfers Therapy Code Descriptions/Definitions Functional [place] Measure: 0=Not Assessed/NA 4=Minimal Assistance 1=Total Assistance 5=Supervision or Setup 2=Maximal Assistance 6=Modified [place] 3=Moderate Assistance 7=Complete IndependenceSCALE: Activities may be completed with or without assistive devices. 4-Cjaxpxkkio-myqevoh completes the activity by him/herself with no assistance from a helper. 5-Set-up or Clean-up Assistance-helper sets up or cleans up; patient completes activity. [place] assists only prior to or following the activity. 4-Supervision or Touching Assistance-helper provides verbal cues and/or touching/steadying and/or contact guard assistance as patient completes activity. Assistance may be provided throughout the activity or intermittently. 3-Partial/Moderate Assistance-helper does LESS THAN HALF the effort. [place] lifts, holds or supports trunk or limbs, but provides less than half the effort. 2-Substantial/Maximal Assistance-helper does MORE THAN HALF the effort. [place] lifts or holds trunk or limbs and provides more than half the effort. 0-Wlwlbnobw-qkoixb does ALL the effort. Patient does none of the effort to complete the activity. Or, the assistance of 2 or more helpers is required for the patient to complete the activity. If activity was not attempted, code reason: 7-Patient Refused. 9-Not Applicable-not attempted and the patient did not perform the activity before the current illness, exacerbation or injury. 10-Not Attempted due to Environmental Limitations-(lack of equipment, weather restraints, etc.). 88-Not Attempted due to Medical Conditions or Safety Concerns. Roll Left to Right (QC): 6 Sit to Lying (QC): 3 Sit to Stand (QC): 4 Chair/Lym-kq-Yxqro Xfer(QC): 6 Car Transfer (QC): 3 Gait Training Does the Patient Walk?: Yes Distance: 15' x2 Walk 10 feet (QC): 4 Walk 50 ft with 2 Turns(QC): 4 Walk 150 ft (QC): 88 Walking 10ft/uneven surface-QC: 3 (with FWW) Gait Persons Needed: 1 Gait Assistive Device: FWW Wheelchair Training Does the Pt Use a Wheelchair?: Yes Wheel 50 ft with 2 turns (QC): 4 Wheel 150 ft (QC): 88 Type of Wheelchair: Manual Stair Training #of Steps: 0 1 Step (curb) (QC): 3 (FWW to step up onto 2" step/mat, cues to not understep walker when placing it up on mat/"curb") 4 Steps (QC): 88 12 Steps (QC): 88 Balance Picking up an Object (QC): 88 ADL-Treatment Eating (QC): 6 Oral Hygiene (QC): 6 Shower/Bathe Self (QC): 4 (SBA sponge bath. Pt washed buttocks/periarea supine in bed. able to wash other parts seated EOB, LH sponge for LEs. ) Upper Body Dressing (QC): 5 Lower Body Dressing (QC): 4 (SBA using AE. 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 Morbid obesity Bacteremia completing Keflex AF w/recent RVR on Coumadin DM insulin dependent HTN LIZBETH on CPAP DAVID recently CKD creat 2.0 DUB ordered USG 02/18/23 revealing abnormal endometrium thickening will consult SHROUD LINE TIER Plan: PT OT Home meds CPAP to be brought in Insulin 02/15/2023: Monitor closely Labs reviewed Chronic hypotension due to CLD 02/16/2023: Monitor closely Fall risk 02/17/2023: Monitor closely Check TV USG tomorrow 02/18/2023: TVUSG Send copies of labs to Hepatology Gustavo 02/19/2023: Evaluate progress tomorrow Patient will not leave AMA today 02/20/2023: Continue to encourage If apathy continues she may need hospice 02/21/2023: Improved overall Increase therapies 02/22/2023: Monitor closely Check labs in morning (1) Hepatic encephalopathy LUCY LANG DO Feb 22, 2023 08:14
[2023-02-22 08:31] VITALS: BP 105/51
[2023-02-22] MEDS: RIFAXIMIN 550 MG TABLET (XIFAXAN) PO SCH ×2 (08:44→22:14)
[2023-02-22] MEDS: MIDODRINE 10 MG (PROAMATINE) TAB PO SCH ×3 (08:45→22:14)
[2023-02-22] MEDS: HYPOCHLOROUS ACID/NaCl (VASHE) 250 ML IR SCH ×2 (08:45→22:14)
[2023-02-22] MEDS: DOCUSATE SODIUM 100 MG (COLACE) CAP PO SCH ×2 (08:45→22:15)
[2023-02-22] MEDS: MICONAZOLE 2% POWDER (DESENEX AF) 90 GM TOP SCH ×2 (08:45→22:15)
[2023-02-22] MEDS: SENNA W/DOCUSATE (SENOKOT S) TABLET PO SCH ×2 (08:49→22:15)
[2023-02-22] MEDS: polyethylene glycoL POWDER 17 GM (MIRALAX) PACK PO SCH ×2 (08:52→21:56)
--- NOTE | 2023-02-22 09:53 | Occupational Ther Daily Note ---
OT Current Status-Daily Note Subjective Pt alert, lying in bed. Pt agrees to therapy. No c/o pain. Co-treat with PT [id number], skills of 2 clinicians for higher level balance skills in standing and sitting to decrease fall risks and educate on modifications when needed. PT focusing on balance, transfers and ambulation while OT focusing on ADLs and functional mobility. Mental Status/Objective Patient Orientation: Person, Place, Time, Situation ADL-Treatment Pt agrees to shower. Pt completes toilet hygiene and cleansing triny/buttocks for shower on EOB or in supine rolling side to side with SBA for safety. Supine to EOB independent. Pt ambulates with SBA using FWW to shower. Sitting on shower bench 100% of the time, pt uses LH sponge, grabbars and hand held shower to complete by self. Sitting at sink, pt completes oral care independently. Set up for UBD. SBA for LBD. Set up for socks using sock. Therapy Code Descriptions/Definitions Functional [place] Measure: 0=Not Assessed/NA 4=Minimal Assistance 1=Total Assistance 5=Supervision or Setup 2=Maximal Assistance 6=Modified [place] 3=Moderate Assistance 7=Complete IndependenceSCALE: Activities may be completed with or without assistive devices. 3-Cdpqmvotib-pcmhyxo completes the activity by him/herself with no assistance from a helper. 5-Set-up or Clean-up Assistance-helper sets up or cleans up; patient completes activity. [place] assists only prior to or following the activity. 4-Supervision or Touching Assistance-helper provides verbal cues and/or touching/steadying and/or contact guard assistance as patient completes activity. Assistance may be provided throughout the activity or intermittently. 3-Partial/Moderate Assistance-helper does LESS THAN HALF the effort. [place] lifts, holds or supports trunk or limbs, but provides less than half the effort. 2-Substantial/Maximal Assistance-helper does MORE THAN HALF the effort. [place] lifts or holds trunk or limbs and provides more than half the effort. 8-Rimobgorx-ehlbdp does ALL the effort. Patient does none of the effort to complete the activity. Or, the assistance of 2 or more helpers is required for the patient to complete the activity. If activity was not attempted, code reason: 7-Patient Refused. 9-Not Applicable-not attempted and the patient did not perform the activity before the current illness, exacerbation or injury. 10-Not Attempted due to Environmental Limitations-(lack of equipment, weather restraints, etc.). 88-Not Attempted due to Medical Conditions or Safety Concerns. Eating (QC): 6 Oral Hygiene (QC): 6 Shower/Bathe Self (QC): 5 Upper Body Dressing (QC): 5 Lower Body Dressing (QC): 4 On/Off Footwear: 4 Toileting Hygiene (QC): 4 Toilet Transfer (QC): 4 OT Short Term Goals Short Term Goals Time Frame: Mar 01, 2023 Shower/bathe self: 3 Lower body dressin Putting on/taking off footwear: 3 OT Group Home Goals Screen Tender Goals Time Frame: Mar 15, 2023 Acute change in mental status: 0 Inattention: 0 Disorganized thinkin Altered level of consciousness: 0 Eating (QC): 6 Oral Hygiene (QC): 6 Toileting Hygiene (QC): 6 Shower/Bathe Self (QC): 6 Upper Body Dressing (QC): 6 Lower Body Dressing (QC): 6 On/Off Footwear (QC): 6 Additional Goals: 1-Demonstrate ADL Tasks, 2-Verbalize Understanding, 3-ImproveStrength/Josie 1=Demonstrate adherence to instructed precautions during ADL tasks. 2=Patient will verbalize/demonstrate understanding of assistive devices/modifications for ADL. 3=Patient will improve strength/tolerance for activity to enable patient to perform ADL's. OT Education/Plan Problem List/Assessment Assessment: Decreased Activ Tolerance, Decreased UE Strength, Impaired Self- Care Skills Discharge Recommendations Plan/Recommendations: Continue POC Treatment Plan/Plan of Care Patient would benefit from OT for education, treatment and training to promote independence in ADL's, mobility, safety and/or upper extremity function for ADL's. Plan of Care: ADL Retraining, Functional Mobility, Group Exercise/Act as Ind, UE Funct Exercise/Act Treatment Duration: Mar 15, 2023 Frequency: At least 5 of 7 days/Wk (IRF) Estimated Hrs Per Day: 1.5 hours per day Agreement: Yes Rehab Potential: Good Time Start Time: 09:00 Stop Time: 10:00 DATE: Feb 22, 2023 Total Time Billed (hr/min): 60 Billed Treatment Time 1 visit-ADL 4 (60 min) Individual [id number], co-treat with PT [id number] RACHEL LEVI Feb 22, 2023 09:53
[2023-02-22 10:06] VITALS: BP 116/58
[2023-02-22] MEDS: meTOprolol TARTRATE 25 MG (LOPRESSOR) TABLET PO SCH ×2 (10:08→21:56)
[2023-02-22] MEDS: SPIRONOLACTONE 100 MG (ALDACTONE) TABLET PO SCH (10:08)
[2023-02-22] MEDS: BUMETANIDE 1 MG (BUMEX) TAB PO SCH (10:08)
--- NOTE | 2023-02-22 12:10 | Physical Therapy Daily Note ---
PT Daily Note-Current Subjective Pt sitting in [facility] working w/OT upon arrival. Co-treat with PT [id number], skills of 2 clinicians for higher level balance skills in standing and sitting to decrease fall risks and educate on modifications when needed. PT focusing on balance, transfers and ambulation while OT focusing on ADLs and functional mobility. Pain Section J - Health Conditions 1. Rarely or not at all 2. Occasionally 3. Frequently 4. Almost constantly 8. Unable to answer Pain Effect on Sleep: 1 Pain Interference with Therapy: 2 Pain Interference w/Day-to-Day: 1 Mental Status Patient Orientation: Person, Place, Situation Transfers SCALE: Activities may be completed with or without assistive devices. 0-Zpgxltudug-ywtlxmy completes the activity by him/herself with no assistance from a helper. 5-Set-up or Clean-up Assistance-helper sets up or cleans up; patient completes activity. [place] assists only prior to or following the activity. 4-Supervision or Touching Assistance-helper provides verbal cues and/or touching/steadying and/or contact guard assistance as patient completes activity. Assistance may be provided throughout the activity or intermittently. 3-Partial/Moderate Assistance-helper does LESS THAN HALF the effort. [place] lifts, holds or supports trunk or limbs, but provides less than half the effort. 2-Substantial/Maximal Assistance-helper does MORE THAN HALF the effort. [place] lifts or holds trunk or limbs and provides more than half the effort. 2-Bbpqpczvo-bpzwau does ALL the effort. Patient does none of the effort to complete the activity. Or, the assistance of 2 or more helpers is required for the patient to complete the activity. If activity was not attempted, code reason: 7-Patient Refused. 9-Not Applicable-not attempted and the patient did not perform the activity before the current illness, exacerbation or injury. 10-Not Attempted due to Environmental Limitations-(lack of equipment, weather restraints, etc.). 88-Not Attempted due to Medical Conditions or Safety Concerns. Sit to Lying (QC): 3 Sit to Stand (QC): 4 Weight Bearing Weight Bearing/Tolerated Weight Bearing/Tolerated Gait Training Does the Patient Walk?: Yes Walk 10 feet (QC): 5 Walk 50 ft with 2 Turns(QC): 4 Gait Assistive Device: FWW Wheelchair Training Does the Pt Use a Wheelchair?: Yes Type of Wheelchair: Manual Treatments Pt completes ADLs, takes meds & has legs JOHANNY wrapped. Pt amb. in hallway, taking several RB as needed for fatigue. Pt propels WCH in hallway before returning to room to rest in recliner at end of tx. All needs met, call light in hand. Assessment Current Status: Fair Progress Pt needs encouragement to push self for improved progress for mobility. PT Burring Machine Operator Goals Assisted Goals PT Assisted Goals Time Frame: Mar 08, 2023 Roll Left & Right (QC): 6 Sit to Lying (QC): 6 Lying-Sitting on Side/Bed(QC): 6 Sit to Stand (QC): 6 Chair/Khd-rc-Wzake Xfer(QC): 6 Toilet Transfer (QC): 6 Car Transfer (QC): 5 Does the Patient Walk: Yes Walk 10 feet (QC): 6 Walk 50ft with 2 Turns (QC): 6 Walk 150 ft (QC): 4 Walking 10ft on Uneven Surface: 6 1 Step (curb) (QC): 6 4 Steps (QC): 4 12 Steps (QC): 9 Picking up an Object (QC): 5 Does the Pt use WC or Scooter?: Yes Wheel 50 feet with 2 turns (QC: 6 Type: Manual Wheel 150 feet: 6 PT Plan Problem List Problem List: Activity Tolerance, Functional Strength, Gait Treatment/Plan Treatment Plan: Continue Plan of Care Treatment Plan: Bed Mobility, Education, Functional Activity Josie, Functional Strength, Group Therapy, Gait, Safety, Therapeutic Exercise, Transfers Treatment Duration: Mar 08, 2023 Frequency: At least 5 of 7 days/Wk (IRF) Estimated Hrs Per Day: 1.5 hours per day Patient and/or Family Agrees t: Yes Safety Risks/Education Patient Education: Gait Training, Correct Positioning Teaching Recipient: Patient Teaching Methods: Discussion Response to Teaching: Verbalize Understanding Time Time In: 930 Time Out: 1100 DATE: Feb 22, 2023 Total Billed Treatment Time: 90 Total Billed Treatment Co-treat w/OT for 30m (930-1000) 1, GT x2 (30m), WCH (30m) & FA x2 (30m) JERED VERDUGO BELT PRESS OPERATOR Feb 22, 2023 12:10
--- NOTE | 2023-02-22 15:23 | Physical Therapy Daily Note ---
PT Daily Note-Current Subjective Pt sitting in recliner upon arrival. Pt agrees to PT but asks to use BR to start tx. Pain Location: No Pain Reported Section J - Health Conditions 1. Rarely or not at all 2. Occasionally 3. Frequently 4. Almost constantly 8. Unable to answer Pain Effect on Sleep: 1 Pain Interference with Therapy: 2 Pain Interference w/Day-to-Day: 1 Mental Status Patient Orientation: Person, Place, Situation Transfers SCALE: Activities may be completed with or without assistive devices. 3-Zwvcyoewam-dtajedy completes the activity by him/herself with no assistance from a helper. 5-Set-up or Clean-up Assistance-helper sets up or cleans up; patient completes a ctivity. [place] assists only prior to or following the activity. 4-Supervision or Touching Assistance-helper provides verbal cues and/or touching/steadying and/or contact guard assistance as patient completes activity. Assistance may be provided throughout the activity or intermittently. 3-Partial/Moderate Assistance-helper does LESS THAN HALF the effort. [place] lifts, holds or supports trunk or limbs, but provides less than half the effort. 2-Substantial/Maximal Assistance-helper does MORE THAN HALF the effort. [place] lifts or holds trunk or limbs and provides more than half the effort. 0-Pywxqcsdf-hsabsr does ALL the effort. Patient does none of the effort to complete the activity. Or, the assistance of 2 or more helpers is required for the patient to complete the activity. If activity was not attempted, code reason: 7-Patient Refused. 9-Not Applicable-not attempted and the patient did not perform the activity before the current illness, exacerbation or injury. 10-Not Attempted due to Environmental Limitations-(lack of equipment, weather restraints, etc.). 88-Not Attempted due to Medical Conditions or Safety Concerns. Sit to Stand (QC): 4 Toilet Transfer (QC): 4 Weight Bearing Weight Bearing/Tolerated Weight Bearing/Tolerated Gait Training Does the Patient Walk?: Yes Distance: 15' Walk 10 feet (QC): 5 Gait Assistive Device: FWW Treatments TF to standing and amb to BR. After toileting, pt needs assistance w/pericare for BM. Pt doffs clothing & dons hospital gown & amb to bed to lay Supine. All needs met, call light in hand. Assessment Current Status: Fair Progress Pt continues to demonstrate decreased motivation, needing encouragement to push self. PT Air Purifier Servicer Goals Senior Living Goals PT Senior Living Goals Time Frame: Mar 08, 2023 Roll Left & Right (QC): 6 Sit to Lying (QC): 6 Lying-Sitting on Side/Bed(QC): 6 Sit to Stand (QC): 6 Chair/Vai-sx-Ofepv Xfer(QC): 6 Toilet Transfer (QC): 6 Car Transfer (QC): 5 Does the Patient Walk: Yes Walk 10 feet (QC): 6 Walk 50ft with 2 Turns (QC): 6 Walk 150 ft (QC): 4 Walking 10ft on Uneven Surface: 6 1 Step (curb) (QC): 6 4 Steps (QC): 4 12 Steps (QC): 9 Picking up an Object (QC): 5 Does the Pt use WC or Scooter?: Yes Wheel 50 feet with 2 turns (QC: 6 Type: Manual Wheel 150 feet: 6 PT Plan Problem List Problem List: Activity Tolerance, Functional Strength Treatment/Plan Treatment Plan: Continue Plan of Care Treatment Plan: Bed Mobility, Education, Functional Activity Josie, Functional Strength, Group Therapy, Gait, Safety, Therapeutic Exercise, Transfers Treatment Duration: Mar 08, 2023 Frequency: At least 5 of 7 days/Wk (IRF) Estimated Hrs Per Day: 1.5 hours per day Patient and/or Family Agrees t: Yes Time Time In: 1330 Time Out: 1400 DATE: Feb 22, 2023 Total Billed Treatment Time: 30 Total Billed Treatment 1, FA x2 (30m) JERED VERDUGO REGIONAL TRUCK DRIVER Feb 22, 2023 15:23
[2023-02-22] MEDS: warFARin 2 MG (COUMADIN) TAB PO SCH (16:59)
[2023-02-22 20:45] VITALS: BP 86/40
[2023-02-22 21:49] VITALS: BP 97/61
[2023-02-23] MEDS: inSUlin ASPART (NovoLOG) 1 UNIT/0.01 ML (CHARGE PER UNIT) SQ SCH ×3 (06:56→17:09)
[2023-02-23] MEDS: LEVOTHYROXINE 112 MCG (LEVOTHROID) TAB PO SCH (06:56)
[2023-02-23] MEDS: PANTOPRAZOLE 40 MG (PROTONIX) TAB PO SCH (06:56)
[2023-02-23 07:11] LABS: EOSINOPHILS # (AUTO) 0.1 10^3/uL (0.0-0.3); MEAN CORPUSCULAR HGB CONC 34 g/dL (32-36)
[2023-02-23 07:12] LABS: BASOPHILS % (AUTO) 1 % (0-10); EOSINOPHILS % (AUTO) 4 % (0-10); HEMATOCRIT 26 % (35-52); HEMOGLOBIN 8.7 g/dL (11.5-16.0); LYMPHOCYTES # (AUTO) 0.9 10^3/uL (1.0-4.0); LYMPHOCYTES % (AUTO) 29 % (12-44); MEAN CORPUSCULAR HEMOGLOBIN 38 pg (25-34); MEAN CORPUSCULAR VOLUME 112 fL (80-99); MEAN PLATELET VOLUME 11.4 fL (9.0-12.2); MONOCYTES # (AUTO) 0.5 10^3/uL (0.0-1.0); MONOCYTES % (AUTO) 17 % (0-12); NEUTROPHILS # (AUTO) 1.4 10^3/uL (1.8-7.8); NEUTROPHILS % (AUTO) 47 % (42-75)
[2023-02-23 07:18] LABS: PLATELET COUNT 44 10^3/uL (130-400)
[2023-02-23 07:30] VITALS: BP 78/46
[2023-02-23 07:30] LABS: INR 3.9 (0.8-1.4); PROTHROMBIN TIME PATIENT 38.2 SEC (12.2-14.7)
--- NOTE | 2023-02-23 07:30 | PM&R Progress Note ---
Subjective HPI/CC On Admission Date Seen by Provider: Feb 23, 2023 Time Seen by Provider: 12:00 Subjective/Events-last exam 02/23/2023: Pt is much improved ambulatory johnson No pain reported BM+ Labs reviewed INR 3.9 so will decrease Coumadin to 1.5mg 02/22/2023: Much improved Sugars improved No falls Participation is good 02/21/2023: Much improved participation today Education yesterday and family meeting seemed to have resulted on improved participation No pain reported 02/20/2023: Overall improved status Moving better Lack of motivation is an issue No pain 02/19/2023: Doing well Dr Barragan will consult on DUB Wanted to leave AMA but agreed to have team meeting results reviewed tomorrow and make decision Abdominal pain reported but subtle report 02/18/2023: Doing well No major issues Will send copies of labs to [place] due to increased creatinine Ambulating well TV USG today 02/17/2023: No major events overnight Vaginal bleeding noted and no menses since 2015 when she was dx with OMARI She goes to [facility] every 6 months but she missed recent appt due to hospital stay SALCIDO was dx in 2015 when she was in hospital at [place] when she had an infected cyst of her kidney TV and Pelvic USG will be performed tomorrow 02/16/2023: No major issues Hypotension is slightly symptomatic No bleeding No falls 02/15/2023: Had a good night Ambulating to the wheelchair and transfers are good TB 10 Still jaundiced Creat 2 Monitoring closely Review of Systems General: Fatigue, Malaise Objective Exam Vital Signs Vital Signs Date Time Temp Pulse Resp B/P (MAP) Pulse Ox O2 Delivery O2 Flow Rate FiO2 02/23/23 07:30 37.0 67 20 78/46 (57) 99 Room Air Capillary Refill : General Appearance: No Apparent Distress, WD/WN, Chronically ill, Obese, Other (jaundiced) HEENT: PERRL/EOMI, Normal ENT Inspection, Pharynx Normal Neck: Full Range of Motion, Normal Inspection, Non Tender, Supple, Carotid Bruit Respiratory: Chest Non Tender, Lungs Clear, Normal Breath Sounds, No Accessory Muscle Use, No Respiratory Distress Cardiovascular: Regular Rate, Rhythm, No Edema, No Gallop, No JVD, No Murmur, Normal Peripheral Pulses Gastrointestinal: Normal Bowel Sounds, No Organomegaly, No Pulsatile Mass, Non Tender, Soft Back: Normal Inspection, No CVA Tenderness, No Vertebral Tenderness Extremity: Normal Capillary Refill, Normal Inspection, Normal Range of Motion, Non Tender, No Calf Tenderness, No Pedal Edema Neurologic/Psychiatric: Alert, Oriented x3, 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 FIM Transfers Therapy Code Descriptions/Definitions Functional [place] Measure: 0=Not Assessed/NA 4=Minimal Assistance 1=Total Assistance 5=Supervision or Setup 2=Maximal Assistance 6=Modified [place] 3=Moderate Assistance 7=Complete IndependenceSCALE: Activities may be completed with or without assistive devices. 7-Ywtxcyceus-flizrqy completes the activity by him/herself with no assistance from a helper. 5-Set-up or Clean-up Assistance-helper sets up or cleans up; patient completes activity. [place] assists only prior to or following the activity. 4-Supervision or Touching Assistance-helper provides verbal cues and/or touching/steadying and/or contact guard assistance as patient completes acti vity. Assistance may be provided throughout the activity or intermittently. 3-Partial/Moderate Assistance-helper does LESS THAN HALF the effort. [place] lifts, holds or supports trunk or limbs, but provides less than half the effort. 2-Substantial/Maximal Assistance-helper does MORE THAN HALF the effort. [place] lifts or holds trunk or limbs and provides more than half the effort. 4-Uivybetqo-mcbypj does ALL the effort. Patient does none of the effort to complete the activity. Or, the assistance of 2 or more helpers is required for the patient to complete the activity. If activity was not attempted, code reason: 7-Patient Refused. 9-Not Applicable-not attempted and the patient did not perform the activity before the current illness, exacerbation or injury. 10-Not Attempted due to Environmental Limitations-(lack of equipment, weather restraints, etc.). 88-Not Attempted due to Medical Conditions or Safety Concerns. Roll Left to Right (QC): 6 Sit to Lying (QC): 3 Sit to Stand (QC): 4 Chair/Lgo-ke-Jolaz Xfer(QC): 6 Car Transfer (QC): 3 Gait Training Does the Patient Walk?: Yes Distance: 15' Walk 10 feet (QC): 5 Walk 50 ft with 2 Turns(QC): 4 Walk 150 ft (QC): 88 Walking 10ft/uneven surface-QC: 3 (with FWW) Gait Persons Needed: 1 Gait Assistive Device: FWW Wheelchair Training Does the Pt Use a Wheelchair?: Yes Wheel 50 ft with 2 turns (QC): 4 Wheel 150 ft (QC): 88 Type of Wheelchair: Manual Stair Training #of Steps: 0 1 Step (curb) (QC): 3 (FWW to step up onto 2" step/mat, cues to not understep walker when placing it up on mat/"curb") 4 Steps (QC): 88 12 Steps (QC): 88 Balance Picking up an Object (QC): 88 ADL-Treatment Eating (QC): 6 Oral Hygiene (QC): 6 Shower/Bathe Self (QC): 5 Upper Body Dressing (QC): 5 Lower Body Dressing (QC): 4 On/Off Footwear (QC): 4 Toileting Hygiene (QC): 4 Toilet Transfer (QC): 4 Assessment/Plan Assessment and Plan Assess & Plan/Chief Complaint Assessment: s/p hepatic encepphalopathy episode 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 Morbid obesity Bacteremia completing Keflex AF w/recent RVR on Coumadin DM insulin dependent HTN LIZBETH on CPAP DAVID recently CKD creat 2.0 DUB ordered USG 02/18/23 revealing abnormal endometrium thickening will consult [facility] [employer] Hyperkalemia-ordered one dose Kayexelate Plan: PT OT Home meds CPAP to be brought in Insulin 02/15/2023: Monitor closely Labs reviewed Chronic hypotension due to CLD 02/16/2023: Monitor closely Fall risk 02/17/2023: Monitor closely Check TV USG tomorrow 02/18/2023: TVUSG Send copies of labs to Hepatology Gustavo 02/19/2023: Evaluate progress tomorrow Patient will not leave AMA today 02/20/2023: Continue to encourage If apathy continues she may need hospice 02/21/2023: Improved overall Increase therapies 02/22/2023: Monitor closely Check labs in morning 02/23/2023: Monitor INR and potassium and creat (1) Hepatic encephalopathy LUCY LANG DO Feb 23, 2023 07:30
[2023-02-23 07:32] LABS: ALBUMIN 2.8 GM/DL (3.2-4.5); POTASSIUM 5.5 MMOL/L (3.6-5.0)
[2023-02-23 07:34] LABS: CALCIUM 8.9 MG/DL (8.5-10.1)
[2023-02-23 07:38] LABS: CREATININE SERUM 2.83 MG/DL (0.60-1.30)
[2023-02-23] MEDS: HYPOCHLOROUS ACID/NaCl (VASHE) 250 ML IR SCH ×2 (09:07→20:21)
[2023-02-23] MEDS: SPIRONOLACTONE 100 MG (ALDACTONE) TABLET PO SCH (09:08)
[2023-02-23] MEDS: BUMETANIDE 1 MG (BUMEX) TAB PO SCH (09:08)
[2023-02-23] MEDS: DOCUSATE SODIUM 100 MG (COLACE) CAP PO SCH ×2 (09:10→20:21)
[2023-02-23] MEDS: meTOprolol TARTRATE 25 MG (LOPRESSOR) TABLET PO SCH ×2 (09:11→20:22)
[2023-02-23] MEDS: polyethylene glycoL POWDER 17 GM (MIRALAX) PACK PO SCH ×2 (09:12→20:22)
[2023-02-23] MEDS: MIDODRINE 10 MG (PROAMATINE) TAB PO SCH ×3 (09:13→20:35)
[2023-02-23] MEDS: SENNA W/DOCUSATE (SENOKOT S) TABLET PO SCH ×2 (09:13→20:22)
[2023-02-23] MEDS: RIFAXIMIN 550 MG TABLET (XIFAXAN) PO SCH ×2 (09:14→20:35)
[2023-02-23] MEDS: MICONAZOLE 2% POWDER (DESENEX AF) 90 GM TOP SCH ×2 (09:15→20:21)
[2023-02-23] MEDS ORDERED: SODIUM POLYSTYRENE POWDER 15 GM BOTTLE PO ONE (09:30)
--- NOTE | 2023-02-23 11:18 | Physical Therapy Daily Note ---
PT Daily Note-Current Subjective Pt found lying in bed upon entry. Agreed to PT. Reports that she is not having any pain. Requests to move back to bed post-treatment. Pain Section J - Health Conditions 1. Rarely or not at all 2. Occasionally 3. Frequently 4. Almost constantly 8. Unable to answer Pain Effect on Sleep: 1 Pain Interference with Therapy: 2 Pain Interference w/Day-to-Day: 1 Mental Status Patient Orientation: Person, Place Transfers SCALE: Activities may be completed with or without assistive devices. 1-Svdmlmjvuq-sfhbfkl completes the activity by him/herself with no assistance from a helper. 5-Set-up or Clean-up Assistance-helper sets up or cleans up; patient completes activity. [place] assists only prior to or following the activity. 4-Supervision or Touching Assistance-helper provides verbal cues and/or t ouching/steadying and/or contact guard assistance as patient completes activity. Assistance may be provided throughout the activity or intermittently. 3-Partial/Moderate Assistance-helper does LESS THAN HALF the effort. [place] lifts, holds or supports trunk or limbs, but provides less than half the effort. 2-Substantial/Maximal Assistance-helper does MORE THAN HALF the effort. [place] lifts or holds trunk or limbs and provides more than half the effort. 9-Dnciflblh-nahikr does ALL the effort. Patient does none of the effort to complete the activity. Or, the assistance of 2 or more helpers is required for the patient to complete the activity. If activity was not attempted, code reason: 7-Patient Refused. 9-Not Applicable-not attempted and the patient did not perform the activity before the current illness, exacerbation or injury. 10-Not Attempted due to Environmental Limitations-(lack of equipment, weather restraints, etc.). 88-Not Attempted due to Medical Conditions or Safety Concerns. Sit to Lying (QC): 3 Sit to Stand (QC): 4 Pt MIN assist with sit to lying transfer. Required assistance lifting BLEs. CGA with sit to stand transfers. Weight Bearing Weight Bearing/Tolerated Weight Bearing/Tolerated Gait Training Does the Patient Walk?: Yes Distance: 50, 50, 50 Walk 10 feet (QC): 5 Walk 50 ft with 2 Turns(QC): 5 Gait Assistive Device: FWW Pt set up assistance with use of FWW. Ambulated 50 feet x 3. Required short seated rest breaks throughout. Displays slow gait pattern with no loss of balance. Assessment Current Status: Fair Progress Pt demonstrates limited endurance and tolerance to gait training. Required short seated rest breaks throughout. Required assistance with LEs to complete sitting to lying transfer. Continue to progress pt as tolerated per POC to improve strength, endurance, and functional ability. PT Intermediate Goals Intermediate Goals PT Guillotine Trimmer Goals Time Frame: Mar 08, 2023 Roll Left & Right (QC): 6 Sit to Lying (QC): 6 Lying-Sitting on Side/Bed(QC): 6 Sit to Stand (QC): 6 Chair/Itr-nd-Txlqk Xfer(QC): 6 Toilet Transfer (QC): 6 Car Transfer (QC): 5 Does the Patient Walk: Yes Walk 10 feet (QC): 6 Walk 50ft with 2 Turns (QC): 6 Walk 150 ft (QC): 4 Walking 10ft on Uneven Surface: 6 1 Step (curb) (QC): 6 4 Steps (QC): 4 12 Steps (QC): 9 Picking up an Object (QC): 5 Does the Pt use WC or Scooter?: Yes Wheel 50 feet with 2 turns (QC: 6 Type: Manual Wheel 150 feet: 6 PT Plan Treatment/Plan Treatment Plan: Continue Plan of Care Treatment Plan: Bed Mobility, Education, Functional Activity Josie, Functional Strength, Group Therapy, Gait, Safety, Therapeutic Exercise, Transfers Treatment Duration: Mar 08, 2023 Frequency: At least 5 of 7 days/Wk (IRF) Estimated Hrs Per Day: 1.5 hours per day Patient and/or Family Agrees t: Yes Time Time In: 817 Time Out: 852 DATE: Feb 23, 2023 Total Billed Treatment Time: 35 Total Billed Treatment 1 visit GT x 2 ZACHARIAH SALDANA MAINTENANCE OF WAY FOREMAN Feb 23, 2023 11:18
[2023-02-23] MEDS ORDERED: warFARin 3 MG (COUMADIN) TAB PO SCH (18:00)
[2023-02-23 20:00] VITALS: BP 98/47
[2023-02-24] MEDS: LEVOTHYROXINE 112 MCG (LEVOTHROID) TAB PO SCH (05:32)
[2023-02-24] MEDS: PANTOPRAZOLE 40 MG (PROTONIX) TAB PO SCH (05:32)
--- NOTE | 2023-02-24 06:33 | PM&R Progress Note ---
Subjective HPI/CC On Admission Date Seen by Provider: Feb 24, 2023 Time Seen by Provider: 12:00 Subjective/Events-last exam 02/24/2023: No major issues Checking labs in am Good ambulation Eating well Vaginal bleeding is less 02/23/2023: Pt is much improved ambulatory johnson No pain reported BM+ Labs reviewed INR 3.9 so will decrease Coumadin to 1.5mg 02/22/2023: Much improved Sugars improved No falls Participation is good 02/21/2023: Much improved participation today Education yesterday and family meeting seemed to have resulted on improved participation No pain reported 02/20/2023: Overall improved status Moving better Lack of motivation is an issue No pain 02/19/2023: Doing well Dr Barragan will consult on DUB Wanted to leave AMA but agreed to have team meeting results reviewed tomorrow and make decision Abdominal pain reported but subtle report 02/18/2023: Doing well No major issues Will send copies of labs to [place] due to increased creatinine Ambulating well TV USG today 02/17/2023: No major events overnight Vaginal bleeding noted and no menses since 2015 when she was dx with SALCIDO She goes to [facility] every 6 months but she missed recent appt due to hospital stay OMARI was dx in 2015 when she was in hospital at [place] when she had an infected cyst of her kidney TV and Pelvic USG will be performed tomorrow 02/16/2023: No major issues Hypotension is slightly symptomatic No bleeding No falls 02/15/2023: Had a good night Ambulating to the wheelchair and transfers are good TB 10 Still jaundiced Creat 2 Monitoring closely Review of Systems General: Fatigue, Malaise Objective Exam Vital Signs Vital Signs Date Time Temp Pulse Resp B/P (MAP) Pulse Ox O2 Delivery O2 Flow Rate FiO2 02/24/23 20:55 37.1 61 20 100/62 (75) Room Air 02/24/23 07:27 94 Capillary Refill : General Appearance: No Apparent Distress, WD/WN, Chronically ill, Obese, Other (jaundiced) HEENT: PERRL/EOMI, Normal ENT Inspection, Pharynx Normal Neck: Full Range of Motion, Normal Inspection, Non Tender, Supple, Carotid Bruit Respiratory: Chest Non Tender, Lungs Clear, Normal Breath Sounds, No Accessory Muscle Use, No Respiratory Distress Cardiovascular: Regular Rate, Rhythm, No Edema, No Gallop, No JVD, No Murmur, Normal Peripheral Pulses Gastrointestinal: Normal Bowel Sounds, No Organomegaly, No Pulsatile Mass, Non Tender, Soft Back: Normal Inspection, No CVA Tenderness, No Vertebral Tenderness Extremity: Normal Capillary Refill, Normal Inspection, Normal Range of Motion, Non Tender, No Calf Tenderness, No Pedal Edema Neurologic/Psychiatric: Alert, Oriented x3, research computing specialist II-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 FIM Transfers Therapy Code Descriptions/Definitions Functional [place] Measure: 0=Not Assessed/NA 4=Minimal Assistance 1=Total Assistance 5=Supervision or Setup 2=Maximal Assistance 6=Modified [place] 3=Moderate Assistance 7=Complete IndependenceSCALE: Activities may be completed with or without assistive devices. 5-Ylamekmjxr-bovdkvb completes the activity by him/herself with no assistance from a helper. 5-Set-up or Clean-up Assistance-helper sets up or cleans up; patient completes activity. [place] assists only prior to or following the activity. 4-Supervision or Touching Assistance-helper provides verbal cues and/or touching/steadying and/or contact guard assistance as patient completes activity. Assistance may be provided throughout the activity or intermittently. 3-Partial/Moderate Assistance-helper does LESS THAN HALF the effort. [place] lifts, holds or supports trunk or limbs, but provides less than half the effort. 2-Substantial/Maximal Assistance-helper does MORE THAN HALF the effort. [place] lifts or holds trunk or limbs and provides more than half the effort. 5-Arhoanutv-vizpjw does ALL the effort. Patient does none of the effort to complete the activity. Or, the assistance of 2 or more helpers is required for the patient to complete the activity. If activity was not attempted, code reason: 7-Patient Refused. 9-Not Applicable-not attempted and the patient did not perform the activity before the current illness, exacerbation or injury. 10-Not Attempted due to Environmental Limitations-(lack of equipment, weather restraints, etc.). 88-Not Attempted due to Medical Conditions or Safety Concerns. Roll Left to Right (QC): 6 Sit to Lying (QC): 3 Sit to Stand (QC): 4 Chair/Zbn-cw-Nnorn Xfer(QC): 6 Car Transfer (QC): 3 Gait Training Does the Patient Walk?: Yes Distance: 50, 50, 50 Walk 10 feet (QC): 5 Walk 50 ft with 2 Turns(QC): 5 Walk 150 ft (QC): 88 Walking 10ft/uneven surface-QC: 3 (with FWW) Gait Persons Needed: 1 Gait Assistive Device: FWW Wheelchair Training Does the Pt Use a Wheelchair?: Yes Wheel 50 ft with 2 turns (QC): 4 Wheel 150 ft (QC): 88 Type of Wheelchair: Manual Stair Training #of Steps: 0 1 Step (curb) (QC): 3 (FWW to step up onto 2" step/mat, cues to not understep walker when placing it up on mat/"curb") 4 Steps (QC): 88 12 Steps (QC): 88 Balance Picking up an Object (QC): 88 ADL-Treatment Eating (QC): 6 Oral Hygiene (QC): 6 Shower/Bathe Self (QC): 5 Upper Body Dressing (QC): 5 Lower Body Dressing (QC): 4 On/Off Footwear (QC): 4 Toileting Hygiene (QC): 4 Toilet Transfer (QC): 4 Assessment/Plan Assessment and Plan Assess & Plan/Chief Complaint Assessment: s/p hepatic encepphalopathy episode 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 Morbid obesity Bacteremia completing Keflex AF w/recent RVR on Coumadin DM insulin dependent HTN LIZBETH on CPAP DAVID recently CKD creat 2.0 DUB ordered USG 02/18/23 revealing abnormal endometrium thickening 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 Hyperkalemia-ordered one dose Kayexelate Plan: PT OT Home meds CPAP to be brought in Insulin 02/15/2023: Monitor closely Labs reviewed Chronic hypotension due to CLD 02/16/2023: Monitor closely Fall risk 02/17/2023: Monitor closely Check TV USG tomorrow 02/18/2023: TVUSG Send copies of labs to Hepatology Gustavo 02/19/2023: Evaluate progress tomorrow Patient will not leave AMA today 02/20/2023: Continue to encourage If apathy continues she may need hospice 02/21/2023: Improved overall Increase therapies 02/22/2023: Monitor closely Check labs in morning 02/23/2023: Monitor INR and potassium and creat 02/24/2023: Monitor labs closely (1) Hepatic encephalopathy LUCY LANG DO Feb 24, 2023 06:33
[2023-02-24] MEDS: inSUlin ASPART (NovoLOG) 1 UNIT/0.01 ML (CHARGE PER UNIT) SQ SCH ×3 (06:55→17:16)
[2023-02-24 07:27] VITALS: BP 105/64
[2023-02-24] MEDS: SPIRONOLACTONE 100 MG (ALDACTONE) TABLET PO SCH (08:25)
[2023-02-24] MEDS: SENNA W/DOCUSATE (SENOKOT S) TABLET PO SCH ×2 (08:25→21:05)
[2023-02-24] MEDS: RIFAXIMIN 550 MG TABLET (XIFAXAN) PO SCH ×2 (08:25→21:06)
[2023-02-24] MEDS: meTOprolol TARTRATE 25 MG (LOPRESSOR) TABLET PO SCH ×2 (08:26→21:07)
[2023-02-24] MEDS: DOCUSATE SODIUM 100 MG (COLACE) CAP PO SCH ×2 (08:26→21:05)
[2023-02-24] MEDS: MIDODRINE 10 MG (PROAMATINE) TAB PO SCH ×3 (08:26→21:06)
[2023-02-24] MEDS: BUMETANIDE 1 MG (BUMEX) TAB PO SCH (08:26)
[2023-02-24] MEDS: HYPOCHLOROUS ACID/NaCl (VASHE) 250 ML IR SCH ×2 (08:27→21:03)
[2023-02-24] MEDS: MICONAZOLE 2% POWDER (DESENEX AF) 90 GM TOP SCH ×2 (08:27→21:07)
[2023-02-24] MEDS: polyethylene glycoL POWDER 17 GM (MIRALAX) PACK PO SCH ×2 (08:28→19:52)
[2023-02-24 20:55] VITALS: BP 100/62
[2023-02-25 05:12] LABS: PLATELET COUNT 46 10^3/uL (130-400)
[2023-02-25 05:14] LABS: BASOPHILS % (AUTO) 1 % (0-10); EOSINOPHILS # (AUTO) 0.1 10^3/uL (0.0-0.3); EOSINOPHILS % (AUTO) 3 % (0-10); HEMATOCRIT 24 % (35-52); HEMOGLOBIN 8.1 g/dL (11.5-16.0); LYMPHOCYTES # (AUTO) 0.9 10^3/uL (1.0-4.0); LYMPHOCYTES % (AUTO) 33 % (12-44); MEAN CORPUSCULAR HEMOGLOBIN 38 pg (25-34); MEAN CORPUSCULAR HGB CONC 35 g/dL (32-36); MEAN CORPUSCULAR VOLUME 111 fL (80-99); MEAN PLATELET VOLUME 11.6 fL (9.0-12.2); MONOCYTES # (AUTO) 0.4 10^3/uL (0.0-1.0); MONOCYTES % (AUTO) 16 % (0-12); NEUTROPHILS # (AUTO) 1.3 10^3/uL (1.8-7.8); NEUTROPHILS % (AUTO) 46 % (42-75); WHITE BLOOD COUNT 2.8 10^3/uL (4.3-11.0)
[2023-02-25 05:24] LABS: INR 3.8 (0.8-1.4); PROTHROMBIN TIME PATIENT 37.6 SEC (12.2-14.7)
[2023-02-25 05:29] LABS: ALBUMIN 2.7 GM/DL (3.2-4.5); BILIRUBIN,TOTAL 7.2 MG/DL (0.1-1.0); CALCIUM 8.7 MG/DL (8.5-10.1); CREATININE SERUM 2.81 MG/DL (0.60-1.30); TOTAL PROTEIN 5.8 GM/DL (6.4-8.2)
--- NOTE | 2023-02-25 06:15 | PM&R Progress Note ---
Subjective HPI/CC On Admission Date Seen by Provider: Feb 25, 2023 Time Seen by Provider: 09:00 Subjective/Events-last exam 02/25/2023: No major issues Monitoring creat and potassium and INR No falls with improved ambulation 02/24/2023: No major issues Checking labs in am Good ambulation Eating well Vaginal bleeding is less 02/23/2023: Pt is much improved ambulatory johnson No pain reported BM+ Labs reviewed INR 3.9 so will decrease Coumadin to 1.5mg 02/22/2023: Much improved Sugars improved No falls Participation is good 02/21/2023: Much improved participation today Education yesterday and family meeting seemed to have resulted on improved participation No pain reported 02/20/2023: Overall improved status Moving better Lack of motivation is an issue No pain 02/19/2023: Doing well Dr Barragan will consult on DUB Wanted to leave AMA but agreed to have team meeting results reviewed tomorrow and make decision Abdominal pain reported but subtle report 02/18/2023: Doing well No major issues Will send copies of labs to [place] due to increased creatinine Ambulating well TV USG today 02/17/2023: No major events overnight Vaginal bleeding noted and no menses since 2016 when she was dx with SALCIDO She goes to [facility] every 6 months but she missed recent appt due to hospital stay SALCIDO was dx in 2015 when she was in hospital at [place] when she had an infected cyst of her kidney TV and Pelvic USG will be performed tomorrow 02/16/2023: No major issues Hypotension is slightly symptomatic No bleeding No falls 02/15/2023: Had a good night Ambulating to the wheelchair and transfers are good TB 10 Still jaundiced Creat 2 Monitoring closely Review of Systems General: Fatigue, Malaise Objective Exam Vital Signs Vital Signs Date Time Temp Pulse Resp B/P (MAP) Pulse Ox O2 Delivery O2 Flow Rate FiO2 02/25/23 09:09 36.5 67 20 111/68 (82) 95 Room Air Capillary Refill : General Appearance: No Apparent Distress, WD/WN, Chronically ill, Obese, Other (jaundiced) HEENT: PERRL/EOMI, Normal ENT Inspection, Pharynx Normal Neck: Full Range of Motion, Normal Inspection, Non Tender, Supple, Carotid Bruit Respiratory: Chest Non Tender, Lungs Clear, Normal Breath Sounds, No Accessory Muscle Use, No Respiratory Distress Cardiovascular: Regular Rate, Rhythm, No Edema, No Gallop, No JVD, No Murmur, Normal Peripheral Pulses Gastrointestinal: Normal Bowel Sounds, No Organomegaly, No Pulsatile Mass, Non Tender, Soft Back: Normal Inspection, No CVA Tenderness, No Vertebral Tenderness Extremity: Normal Capillary Refill, Normal Inspection, Normal Range of Motion, Non Tender, No Calf Tenderness, No Pedal Edema Neurologic/Psychiatric: Alert, Oriented x3, frog farmer II-XII Norm as Tested, Abnormal Gait, Depressed Affect, Motor Weakness (generalized) Skin: Normal Color, Warm/Dry Lymphatic: No Adenopathy Results/Procedures Lab Laboratory Tests 02/25/23 05:03 Patient resulted labs reviewed. FIM Transfers Therapy Code Descriptions/Definitions Functional [place] Measure: 0=Not Assessed/NA 4=Minimal Assistance 1=Total Assistance 5=Supervision or Setup 2=Maximal Assistance 6=Modified [place] 3=Moderate Assistance 7=Complete IndependenceSCALE: Activities may be completed with or without assistive devices. 1-Dazxlxhaao-onypksb completes the activity by him/herself with no assistance from a helper. 5-Set-up or Clean-up Assistance-helper sets up or cleans up; patient completes activity. [place] assists only prior to or following the activity. 4-Supervision or Touching Assistance-helper provides verbal cues and/or touching/steadying and/or contact guard assistance as patient completes activity. Assistance may be provided throughout the activity or intermittently. 3-Partial/Moderate Assistance-helper does LESS THAN HALF the effort. [place] lifts, holds or supports trunk or limbs, but provides less than half the effort. 2-Substantial/Maximal Assistance-helper does MORE THAN HALF the effort. [place] lifts or holds trunk or limbs and provides more than half the effort. 3-Xrwgmtitv-zuoewu does ALL the effort. Patient does none of the effort to complete the activity. Or, the assistance of 2 or more helpers is required for the patient to complete the activity. If activity was not attempted, code reason: 7-Patient Refused. 9-Not Applicable-not attempted and the patient did not perform the activity before the current illness, exacerbation or injury. 10-Not Attempted due to Environmental Limitations-(lack of equipment, weather restraints, etc.). 88-Not Attempted due to Medical Conditions or Safety Concerns. Roll Left to Right (QC): 6 Sit to Lying (QC): 3 Sit to Stand (QC): 4 Chair/Fwj-nv-Taago Xfer(QC): 6 Car Transfer (QC): 3 Gait Training Does the Patient Walk?: Yes Distance: 50, 50, 50 Walk 10 feet (QC): 5 Walk 50 ft with 2 Turns(QC): 5 Walk 150 ft (QC): 88 Walking 10ft/uneven surface-QC: 3 (with FWW) Gait Persons Needed: 1 Gait Assistive Device: FWW Wheelchair Training Does the Pt Use a Wheelchair?: Yes Wheel 50 ft with 2 turns (QC): 4 Wheel 150 ft (QC): 88 Type of Wheelchair: Manual Stair Training #of Steps: 0 1 Step (curb) (QC): 3 (FWW to step up onto 2" step/mat, cues to not understep walker when placing it up on mat/"curb") 4 Steps (QC): 88 12 Steps (QC): 88 Balance Picking up an Object (QC): 88 ADL-Treatment Eating (QC): 6 Oral Hygiene (QC): 6 Shower/Bathe Self (QC): 5 Upper Body Dressing (QC): 5 Lower Body Dressing (QC): 4 On/Off Footwear (QC): 4 Toileting Hygiene (QC): 4 Toilet Transfer (QC): 4 Assessment/Plan Assessment and Plan Assess & Plan/Chief Complaint Assessment: s/p hepatic encepphalopathy episode 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 Morbid obesity Bacteremia completing Keflex AF w/recent RVR on Coumadin Recurrent DVT so on Coumadin long-term DM insulin dependent HTN LIZBETH on CPAP DAVID recently CKD creat 2.8 DUB ordered USG 02/18/23 revealing abnormal endometrium thickening 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 Hyperkalemia-ordered one dose Kayexelate Plan: PT OT Home meds CPAP to be brought in Insulin 02/15/2023: Monitor closely Labs reviewed Chronic hypotension due to CLD 02/16/2023: Monitor closely Fall risk 02/17/2023: Monitor closely Check TV USG tomorrow 02/18/2023: TVUSG Send copies of labs to Hepatology Gustavo 02/19/2023: Evaluate progress tomorrow Patient will not leave AMA today 02/20/2023: Continue to encourage If apathy continues she may need hospice 02/21/2023: Improved overall Increase therapies 02/22/2023: Monitor closely Check labs in morning 02/23/2023: Monitor INR and potassium and creat 02/24/2023: Monitor labs closely 02/25/2023: Monitor creat (1) Hepatic encephalopathy LUCY LANG DO Feb 25, 2023 06:15
[2023-02-25] MEDS: LEVOTHYROXINE 112 MCG (LEVOTHROID) TAB PO SCH (06:35)
[2023-02-25] MEDS: PANTOPRAZOLE 40 MG (PROTONIX) TAB PO SCH (06:35)
[2023-02-25] MEDS: inSUlin ASPART (NovoLOG) 1 UNIT/0.01 ML (CHARGE PER UNIT) SQ SCH ×3 (06:51→17:42)
[2023-02-25] MEDS: SPIRONOLACTONE 100 MG (ALDACTONE) TABLET PO SCH (08:16)
[2023-02-25] MEDS: MIDODRINE 10 MG (PROAMATINE) TAB PO SCH ×3 (08:16→21:05)
[2023-02-25] MEDS: BUMETANIDE 1 MG (BUMEX) TAB PO SCH (08:16)
[2023-02-25] MEDS: RIFAXIMIN 550 MG TABLET (XIFAXAN) PO SCH ×2 (08:16→21:05)
[2023-02-25] MEDS: meTOprolol TARTRATE 25 MG (LOPRESSOR) TABLET PO SCH ×2 (08:16→21:05)
[2023-02-25] MEDS: DOCUSATE SODIUM 100 MG (COLACE) CAP PO SCH ×2 (08:27→21:05)
[2023-02-25] MEDS: SENNA W/DOCUSATE (SENOKOT S) TABLET PO SCH ×2 (08:27→21:05)
[2023-02-25 09:09] VITALS: BP 111/68
--- NOTE | 2023-02-25 09:26 | Physical Therapy Daily Note ---
PT Daily Note-Current Subjective Pt sitting in recliner upon arrival. Pt agree to PT. Pain Location: No Pain Reported Section J - Health Conditions 1. Rarely or not at all 2. Occasionally 3. Frequently 4. Almost constantly 8. Unable to answer Pain Effect on Sleep: 1 Pain Interference with Therapy: 2 Pain Interference w/Day-to-Day: 1 Mental Status Patient Orientation: Person, Place, Time, Situation Transfers SCALE: Activities may be completed with or without assistive devices. 1-Mtuuyltrcq-wkbrinu completes the activity by him/herself with no assistance from a helper. 5-Set-up or Clean-up Assistance-helper sets up or cleans up; patient completes activity. [place] assists only prior to or following the activity. 4-Supervision or Touching Assistance-helper provides verbal cues and/or touching/steadying and/or contact guard assistance as patient completes activity. Assistance may be provided throughout the activity or intermittently. 3-Partial/Moderate Assistance-helper does LESS THAN HALF the effort. [place] lifts, holds or supports trunk or limbs, but provides less than half the effort. 2-Substantial/Maximal Assistance-helper does MORE THAN HALF the effort. [place] lifts or holds trunk or limbs and provides more than half the effort. 1-Jkhcbvgkz-akajzy does ALL the effort. Patient does none of the effort to complete the activity. Or, the assistance of 2 or more helpers is required for the patient to complete the activity. If activity was not attempted, code reason: 7-Patient Refused. 9-Not Applicable-not attempted and the patient did not perform the activity before the current illness, exacerbation or injury. 10-Not Attempted due to Environmental Limitations-(lack of equipment, weather restraints, etc.). 88-Not Attempted due to Medical Conditions or Safety Concerns. Sit to Stand (QC): 5 Toilet Transfer (QC): 5 Weight Bearing Weight Bearing/Tolerated Weight Bearing/Tolerated Gait Training Does the Patient Walk?: Yes Distance: 50', 100' Walk 10 feet (QC): 5 Walk 50 ft with 2 Turns(QC): 5 Gait Assistive Device: FWW Pt needs RB occasionally as pt fatigues. Exercises Supine Ex: Ankle pumps, Quad Set, Glut sets, Heel Slides, Straight leg raise, Hip abd/add Supine Reps: 15 Treatments 800-900: Pt completes EX before TF to standing and amb in hallway. Pt takes a couple RB as needed for fatigue. OT/PT cotreat [id number], skills of 2 clinicians required for higher level balance skills during transfers and ADLs. PT focusing on ambulation and transfers while OT focusing on functional mobility and ADLs. Pt agrees to shower. SBA to ambulate using FWW to bathroom and to transfer into shower. Assessment Current Status: Good Progress Pt is able to amb. farther before needing RB. PT Milk Wagon Driver Goals Snf Goals PT Milk Wagon Driver Goals Time Frame: Mar 08, 2023 Roll Left & Right (QC): 6 Sit to Lying (QC): 6 Lying-Sitting on Side/Bed(QC): 6 Sit to Stand (QC): 6 Chair/Kdi-du-Bvmzl Xfer(QC): 6 Toilet Transfer (QC): 6 Car Transfer (QC): 5 Does the Patient Walk: Yes Walk 10 feet (QC): 6 Walk 50ft with 2 Turns (QC): 6 Walk 150 ft (QC): 4 Walking 10ft on Uneven Surface: 6 1 Step (curb) (QC): 6 4 Steps (QC): 4 12 Steps (QC): 9 Picking up an Object (QC): 5 Does the Pt use WC or Scooter?: Yes Wheel 50 feet with 2 turns (QC: 6 Type: Manual Wheel 150 feet: 6 PT Plan Problem List Problem List: Activity Tolerance Treatment/Plan Treatment Plan: Continue Plan of Care Treatment Plan: Bed Mobility, Education, Functional Activity Josie, Functional Strength, Group Therapy, Gait, Safety, Therapeutic Exercise, Transfers Treatment Duration: Mar 08, 2023 Frequency: At least 5 of 7 days/Wk (IRF) Estimated Hrs Per Day: 1.5 hours per day Patient and/or Family Agrees t: Yes Safety Risks/Education Patient Education: Gait Training, Transfer Techniques, Correct Positioning, Safety Issues Teaching Recipient: Patient Teaching Methods: Discussion Response to Teaching: Verbalize Understanding Time Time In: 800 Time Out: 930 DATE: Feb 25, 2023 Total Billed Treatment Time: 90 Total Billed Treatment 1, GT x2 (30m), FA x2 (30m) & EX x2 (30m) Co-treat w/OT for 30m (900-930) & Ind. for 60m (800-900) JERED VERDUGO PTA Feb 25, 2023 09:26
[2023-02-25] MEDS: HYPOCHLOROUS ACID/NaCl (VASHE) 250 ML IR SCH ×2 (09:55→21:05)
--- NOTE | 2023-02-25 10:07 | Occupational Ther Daily Note ---
OT Current Status-Daily Note Subjective Pt alert, working with PT. OT/PT cotreat [id number], skills of 2 clinicians required for higher level balance skills during transfers and ADLs. PT focusing on ambulation and transfers while OT focusing on functional mobility and ADLs. Mental Status/Objective Patient Orientation: Person, Place, Time, Situation ADL-Treatment Pt agrees to shower. SBA to ambulate using FWW to bathroom and to transfer into shower. Sitting 100% of the time, pt complete shower using grabbars, LH sponge and hand held shower. Pt does complete triny care and buttocks either sitting down or lying down. Set up for UBD. Using marble polisher hand, pt able to doff sock and using sock aide able to don socks. Using marble polisher hand, pt able to thread feet into pants then stand and hike pants after set up. Independent with oral care sitting at sink. Therapy Code Descriptions/Definitions Functional [place] Measure: 0=Not Assessed/NA 4=Minimal Assistance 1=Total Assistance 5=Supervision or Setup 2=Maximal Assistance 6=Modified [place] 3=Moderate Assistance 7=Complete IndependenceSCALE: Activities may be completed with or without assistive devices. 7-Bpkaenmani-dzyhosu completes the activity by him/herself with no assistance from a helper. 5-Set-up or Clean-up Assistance-helper sets up or cleans up; patient completes activity. [place] assists only prior to or following the activity. 4-Supervision or Touching Assistance-helper provides verbal cues and/or touching/steadying and/or contact guard assistance as patient completes activity. Assistance may be provided throughout the activity or intermittently. 3-Partial/Moderate Assistance-helper does LESS THAN HALF the effort. [place] lifts, holds or supports trunk or limbs, but provides less than half the effort. 2-Substantial/Maximal Assistance-helper does MORE THAN HALF the effort. [place] lifts or holds trunk or limbs and provides more than half the effort. 5-Rbefjxdva-ipapet does ALL the effort. Patient does none of the effort to complete the activity. Or, the assistance of 2 or more helpers is required for the patient to complete the activity. If activity was not attempted, code reason: 7-Patient Refused. 9-Not Applicable-not attempted and the patient did not perform the activity before the current illness, exacerbation or injury. 10-Not Attempted due to Environmental Limitations-(lack of equipment, weather restraints, etc.). 88-Not Attempted due to Medical Conditions or Safety Concerns. Oral Hygiene (QC): 6 Shower/Bathe Self (QC): 6 Upper Body Dressing (QC): 5 Lower Body Dressing (QC): 5 On/Off Footwear: 5 Other Treatment Pt completes B UE exercises with 3# wt in supine to increase strength for daily functional tasks. Skilled instruction for correct technique and modifications when necessary. 30 reps with varying sets due to fatigue. After therapy, pt lying in bed with call light/phone in reach. All needs met OT Short Term Goals Short Term Goals Time Frame: Mar 01, 2023 Shower/bathe self: 3 Lower body dressin Putting on/taking off footwear: 3 OT Long-Term Goals Long-Term Goals Time Frame: Mar 15, 2023 Acute change in mental status: 0 Inattention: 0 Disorganized thinkin Altered level of consciousness: 0 Eating (QC): 6 Oral Hygiene (QC): 6 Toileting Hygiene (QC): 6 Shower/Bathe Self (QC): 6 Upper Body Dressing (QC): 6 Lower Body Dressing (QC): 6 On/Off Footwear (QC): 6 Additional Goals: 1-Demonstrate ADL Tasks, 2-Verbalize Understanding, 3-Impr oveStrength/Josie 1=Demonstrate adherence to instructed precautions during ADL tasks. 2=Patient will verbalize/demonstrate understanding of assistive devices/modifications for ADL. 3=Patient will improve strength/tolerance for activity to enable patient to perform ADL's. OT Education/Plan Problem List/Assessment Assessment: Decreased Activ Tolerance, Decreased UE Strength, Impaired Bed Mobility, Impaired Self-Care Skills Discharge Recommendations Plan/Recommendations: Continue POC Treatment Plan/Plan of Care Patient would benefit from OT for education, treatment and training to promote independence in ADL's, mobility, safety and/or upper extremity function for ADL's. Plan of Care: ADL Retraining, Functional Mobility, Group Exercise/Act as Ind, UE Funct Exercise/Act Treatment Duration: Mar 15, 2023 Frequency: At least 5 of 7 days/Wk (IRF) Estimated Hrs Per Day: 1.5 hours per day Agreement: Yes Rehab Potential: Good Time Start Time: 09:00 Stop Time: 10:30 DATE: Feb 25, 2023 Total Time Billed (hr/min): 90 Billed Treatment Time 1 visit-ADL 5 (70 min) EX 1 (20 min) co-treat with PT [id number], individual [id number] RACHEL LEVI Feb 25, 2023 10:07
[2023-02-25] MEDS: polyethylene glycoL POWDER 17 GM (MIRALAX) PACK PO SCH ×2 (10:32→21:05)
[2023-02-25] MEDS: MICONAZOLE 2% POWDER (DESENEX AF) 90 GM TOP SCH ×2 (11:13→21:05)
[2023-02-25 20:49] VITALS: BP 99/59
--- NOTE | 2023-02-26 06:15 | PM&R Progress Note ---
Subjective HPI/CC On Admission Date Seen by Provider: Feb 26, 2023 Time Seen by Provider: 08:30 Subjective/Events-last exam 02/26/2023: Doing much better No pain BM+ Less jaundiced 02/25/2023: No major issues Monitoring creat and potassium and INR No falls with improved ambulation 02/24/2023: No major issues Checking labs in am Good ambulation Eating well Vaginal bleeding is less 02/23/2023: Pt is much improved ambulatory johnson No pain reported BM+ Labs reviewed INR 3.9 so will decrease Coumadin to 1.5mg 02/22/2023: Much improved Sugars improved No falls Participation is good 02/21/2023: Much improved participation today Education yesterday and family meeting seemed to have resulted on improved participation No pain reported 02/20/2023: Overall improved status Moving better Lack of motivation is an issue No pain 02/19/2023: Doing well Dr Barragan will consult on DUB Wanted to leave AMA but agreed to have team meeting results reviewed tomorrow and make decision Abdominal pain reported but subtle report 02/18/2023: Doing well No major issues Will send copies of labs to [place] due to increased creatinine Ambulating well TV USG today 02/17/2023: No major events overnight Vaginal bleeding noted and no menses since 2015 when she was dx with OMARI She goes to [facility] every 6 months but she missed recent appt due to hospital stay SALCIDO was dx in 2015 when she was in hospital at [place] when she had an infected cyst of her kidney TV and Pelvic USG will be performed tomorrow 02/16/2023: No major issues Hypotension is slightly symptomatic No bleeding No falls 02/15/2023: Had a good night Ambulating to the wheelchair and transfers are good TB 10 Still jaundiced Creat 2 Monitoring closely Review of Systems General: Fatigue, Malaise Objective Exam Vital Signs Vital Signs Date Time Temp Pulse Resp B/P (MAP) Pulse Ox O2 Delivery O2 Flow Rate FiO2 02/26/23 08:12 Room Air 02/26/23 07:45 36.9 70 18 96/45 (62) 95 Capillary Refill : General Appearance: No Apparent Distress, WD/WN, Chronically ill, Obese, Other (jaundiced) HEENT: PERRL/EOMI, Normal ENT Inspection, Pharynx Normal Neck: Full Range of Motion, Normal Inspection, Non Tender, Supple, Carotid Bruit Respiratory: Chest Non Tender, Lungs Clear, Normal Breath Sounds, No Accessory Muscle Use, No Respiratory Distress Cardiovascular: Regular Rate, Rhythm, No Edema, No Gallop, No JVD, No Murmur, Normal Peripheral Pulses Gastrointestinal: Normal Bowel Sounds, No Organomegaly, No Pulsatile Mass, Non Tender, Soft Back: Normal Inspection, No CVA Tenderness, No Vertebral Tenderness Extremity: Normal Capillary Refill, Normal Inspection, Normal Range of Motion, Non Tender, No Calf Tenderness, No Pedal Edema Neurologic/Psychiatric: Alert, Oriented x3, auto painter helper II-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 FIM Transfers Therapy Code Descriptions/Definitions Functional [place] Measure: 0=Not Assessed/NA 4=Minimal Assistance 1=Total Assistance 5=Supervision or Setup 2=Maximal Assistance 6=Modified [place] 3=Moderate Assistance 7=Complete IndependenceSCALE: Activities may be completed with or without assistive devices. 8-Vgocmxhpyw-dmwjkot completes the activity by him/herself with no assistance from a helper. 5-Set-up or Clean-up Assistance-helper sets up or cleans up; patient completes activity. [place] assists only prior to or following the activity. 4-Supervision or Touching Assistance-helper provides verbal cues and/or touching/steadying and/or contact guard assistance as patient completes activity. Assistance may be provided throughout the activity or intermittently. 3-Partial/Moderate Assistance-helper does LESS THAN HALF the effort. [place] lifts, holds or supports trunk or limbs, but provides less than half the effort. 2-Substantial/Maximal Assistance-helper does MORE THAN HALF the effort. [place] lifts or holds trunk or limbs and provides more than half the effort. 4-Hqsropaxw-fmuilg does ALL the effort. Patient does none of the effort to complete the activity. Or, the assistance of 2 or more helpers is required for the patient to complete the activity. If activity was not attempted, code reason: 7-Patient Refused. 9-Not Applicable-not attempted and the patient did not perform the activity before the current illness, exacerbation or injury. 10-Not Attempted due to Environmental Limitations-(lack of equipment, weather restraints, etc.). 88-Not Attempted due to Medical Conditions or Safety Concerns. Roll Left to Right (QC): 6 Sit to Lying (QC): 3 Sit to Stand (QC): 5 Chair/Nzo-uh-Bygyg Xfer(QC): 6 Car Transfer (QC): 3 Gait Training Does the Patient Walk?: Yes Distance: 50', 100' Walk 10 feet (QC): 5 Walk 50 ft with 2 Turns(QC): 5 Walk 150 ft (QC): 88 Walking 10ft/uneven surface-QC: 3 (with FWW) Gait Persons Needed: 1 Gait Assistive Device: FWW Wheelchair Training Does the Pt Use a Wheelchair?: Yes Wheel 50 ft with 2 turns (QC): 4 Wheel 150 ft (QC): 88 Type of Wheelchair: Manual Stair Training #of Steps: 0 1 Step (curb) (QC): 3 (FWW to step up onto 2" step/mat, cues to not understep walker when placing it up on mat/"curb") 4 Steps (QC): 88 12 Steps (QC): 88 Balance Picking up an Object (QC): 88 ADL-Treatment Eating (QC): 6 Oral Hygiene (QC): 6 Shower/Bathe Self (QC): 6 Upper Body Dressing (QC): 5 Lower Body Dressing (QC): 5 On/Off Footwear (QC): 5 Toileting Hygiene (QC): 4 Toilet Transfer (QC): 4 Assessment/Plan Assessment and Plan Assess & Plan/Chief Complaint Assessment: s/p hepatic encepphalopathy episode 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 Morbid obesity Bacteremia completing Keflex AF w/recent RVR on Coumadin Recurrent DVT so on Coumadin long-term DM insulin dependent HTN LIZBETH on CPAP DAVID recently CKD creat 2.8 DUB ordered USG 02/18/23 revealing abnormal endometrium thickening will consult [place] LINE ATTENDANT Hyperkalemia-ordered one dose Kayexelate Plan: PT OT Home meds CPAP to be brought in Insulin 02/15/2023: Monitor closely Labs reviewed Chronic hypotension due to CLD 02/16/2023: Monitor closely Fall risk 02/17/2023: Monitor closely Check TV USG tomorrow 02/18/2023: TVUSG Send copies of labs to Hepatology Gustavo 02/19/2023: Evaluate progress tomorrow Patient will not leave AMA today 02/20/2023: Continue to encourage If apathy continues she may need hospice 02/21/2023: Improved overall Increase therapies 02/22/2023: Monitor closely Check labs in morning 02/23/2023: Monitor INR and potassium and creat 02/24/2023: Monitor labs closely 02/25/2023: Monitor creat 02/26/2023: Check labs tomorrow Much improved (1) Hepatic encephalopathy LUCY LANG DO Feb 26, 2023 06:15
[2023-02-26] MEDS: PANTOPRAZOLE 40 MG (PROTONIX) TAB PO SCH (06:44)
[2023-02-26] MEDS: inSUlin ASPART (NovoLOG) 1 UNIT/0.01 ML (CHARGE PER UNIT) SQ SCH ×3 (06:44→17:50)
[2023-02-26] MEDS: LEVOTHYROXINE 112 MCG (LEVOTHROID) TAB PO SCH (06:44)
[2023-02-26 07:45] VITALS: BP 96/45
[2023-02-26] MEDS: SPIRONOLACTONE 100 MG (ALDACTONE) TABLET PO SCH (08:00)
[2023-02-26] MEDS: MIDODRINE 10 MG (PROAMATINE) TAB PO SCH ×3 (08:00→21:29)
[2023-02-26] MEDS: RIFAXIMIN 550 MG TABLET (XIFAXAN) PO SCH ×2 (08:00→21:29)
[2023-02-26] MEDS: BUMETANIDE 1 MG (BUMEX) TAB PO SCH (08:01)
[2023-02-26] MEDS: polyethylene glycoL POWDER 17 GM (MIRALAX) PACK PO SCH ×2 (08:02→21:39)
[2023-02-26] MEDS: MICONAZOLE 2% POWDER (DESENEX AF) 90 GM TOP SCH ×2 (08:02→21:33)
[2023-02-26] MEDS: meTOprolol TARTRATE 25 MG (LOPRESSOR) TABLET PO SCH ×2 (08:02→21:38)
[2023-02-26] MEDS: DOCUSATE SODIUM 100 MG (COLACE) CAP PO SCH ×2 (08:12→21:29)
[2023-02-26] MEDS: SENNA W/DOCUSATE (SENOKOT S) TABLET PO SCH ×2 (08:12→21:29)
[2023-02-26] MEDS: HYPOCHLOROUS ACID/NaCl (VASHE) 250 ML IR SCH ×2 (08:15→21:39)
--- NOTE | 2023-02-26 09:33 | Physical Therapy Daily Note ---
PT Daily Note-Current Subjective Pt sitting in recliner upon arrival. Pt agrees to PT for Ind. then MCKEON to join for short Co-treat. Co-treat from [id number], skills of 2 clinicians required for higher level balance skills during transfers and ADLs. PT focusing on ambulation and transfers while OT focusing on functional mobility and ADLs. Pain Location: No Pain Reported Section J - Health Conditions 1. Rarely or not at all 2. Occasionally 3. Frequently 4. Almost constantly 8. Unable to answer Pain Effect on Sleep: 1 Pain Interference with Therapy: 2 Pain Interference w/Day-to-Day: 1 Mental Status Patient Orientation: Person, Place, Time, Situation Transfers SCALE: Activities may be completed with or without assistive devices. 9-Ccahsdrjgi-bbarbxr completes the activity by him/herself with no assistance from a helper. 5-Set-up or Clean-up Assistance-helper sets up or cleans up; patient completes activity. [place] assists only prior to or following the activity. 4-Supervision or Touching Assistance-helper provides verbal cues and/or touching/steadying and/or contact guard assistance as patient completes activity. Assistance may be provided throughout the activity or intermittently. 3-Partial/Moderate Assistance-helper does LESS THAN HALF the effort. [place] lifts, holds or supports trunk or limbs, but provides less than half the effort. 2-Substantial/Maximal Assistance-helper does MORE THAN HALF the effort. [place] lifts or holds trunk or limbs and provides more than half the effort. 4-Xpdhgeuwk-qgcnbv does ALL the effort. Patient does none of the effort to complete the activity. Or, the assistance of 2 or more helpers is required for the patient to complete the activity. If activity was not attempted, code reason: 7-Patient Refused. 9-Not Applicable-not attempted and the patient did not perform the activity before the current illness, exacerbation or injury. 10-Not Attempted due to Environmental Limitations-(lack of equipment, weather restraints, etc.). 88-Not Attempted due to Medical Conditions or Safety Concerns. Sit to Stand (QC): 5 Toilet Transfer (QC): 5 Weight Bearing Weight Bearing/Tolerated Weight Bearing/Tolerated Gait Training Does the Patient Walk?: Yes Distance: 150' Walk 10 feet (QC): 6 Walk 50 ft with 2 Turns(QC): 5 Walk 150 ft (QC): 5 Gait Assistive Device: FWW Exercises NuStep Minutes: 7 NuStep Workload: 3 Treatments 800-903: Pt TF to standing and uses BR. Pt amb in hallway to Therapy Gym w/o RB. Pt completes Seated EX as well as uses NuStep before MCKEON arrives. 903- 930: Pt completed functional tasks that simulates home environment without LOB though required frequent recovery breaks. MCKEON took over care of pt 0930. Assessment Current Status: Good Progress Pt has improved with strength, activity tolerance as well as decreased need for RB during tx. PT Accounting Policy Consultant Goals Accounting Policy Consultant Goals PT Long-Term Goals Time Frame: Mar 08, 2023 Roll Left & Right (QC): 6 Sit to Lying (QC): 6 Lying-Sitting on Side/Bed(QC): 6 Sit to Stand (QC): 6 Chair/Npu-ph-Xcoto Xfer(QC): 6 Toilet Transfer (QC): 6 Car Transfer (QC): 5 Does the Patient Walk: Yes Walk 10 feet (QC): 6 Walk 50ft with 2 Turns (QC): 6 Walk 150 ft (QC): 4 Walking 10ft on Uneven Surface: 6 1 Step (curb) (QC): 6 4 Steps (QC): 4 12 Steps (QC): 9 Picking up an Object (QC): 5 Does the Pt use WC or Scooter?: Yes Wheel 50 feet with 2 turns (QC: 6 Type: Manual Wheel 150 feet: 6 PT Plan Treatment/Plan Treatment Plan: Continue Plan of Care Treatment Plan: Bed Mobility, Education, Functional Activity Josie, Functional Strength, Group Therapy, Gait, Safety, Therapeutic Exercise, Transfers Treatment Duration: Mar 08, 2023 Frequency: At least 5 of 7 days/Wk (IRF) Estimated Hrs Per Day: 1.5 hours per day Patient and/or Family Agrees t: Yes Safety Risks/Education Patient Education: Gait Training, Correct Positioning, Safety Issues Teaching Recipient: Patient Teaching Methods: Discussion Response to Teaching: Verbalize Understanding Time Time In: 800 Time Out: 930 DATE: Feb 26, 2023 Total Billed Treatment Time: 90 Total Billed Treatment 1, GT x2 (30m), EX x2 (30m) & FA x2 (30m) JERED VERDUGO OCEANOGRAPHIC METEOROLOGIST Feb 26, 2023 09:33
--- NOTE | 2023-02-26 10:53 | Occupational Ther Daily Note ---
OT Current Status-Daily Note Subjective Pt alert, working with PT. OT/PT cotreat [id number], skills of 2 clinicians required for higher level balance skills during transfers and ADLs. PT focusing on ambulation and transfers while OT focusing on functional mobility and ADLs. Mental Status/Objective Patient Orientation: Person, Place, Time, Situation ADL-Treatment Pt demonstrates ability to doff clothing and footwear independently. Assist to lift B LE's into bed then pt is able to complete bed mobility by self. After session, pt lying in bed with call light/phone in reach. All needs met in room. Therapy Code Descriptions/Definitions Functional [place] Measure: 0=Not Assessed/NA 4=Minimal Assistance 1=Total Assistance 5=Supervision or Setup 2=Maximal Assistance 6=Modified [place] 3=Moderate Assistance 7=Complete IndependenceSCALE: Activities may be completed with or without assistive devices. 2-Aoocaqnykd-tzjhqhf completes the activity by him/herself with no assistance from a helper. 5-Set-up or Clean-up Assistance-helper sets up or cleans up; patient completes activity. [place] assists only prior to or following the activity. 4-Supervision or Touching Assistance-helper provides verbal cues and/or touching/steadying and/or contact guard assistance as patient completes activity. Assistance may be provided throughout the activity or intermittently. 3-Partial/Moderate Assistance-helper does LESS THAN HALF the effort. [place] lifts, holds or supports trunk or limbs, but provides less than half the effort. 2-Substantial/Maximal Assistance-helper does MORE THAN HALF the effort. [place] lifts or holds trunk or limbs and provides more than half the effort. 0-Zdpxzrpfn-kfafiq does ALL the effort. Patient does none of the effort to complete the activity. Or, the assistance of 2 or more helpers is required for the patient to complete the activity. If activity was not attempted, code reason: 7-Patient Refused. 9-Not Applicable-not attempted and the patient did not perform the activity before the current illness, exacerbation or injury. 10-Not Attempted due to Environmental Limitations-(lack of equipment, weather restraints, etc.). 88-Not Attempted due to Medical Conditions or Safety Concerns. Other Treatment Pt completed functional tasks that simulates home environment without LOB though required frequent recovery breaks. MCKEON took over care of pt 929. Pt completed B UE exercises to increase strength and stamina for daily functional tasks. Skilled instruction given for correct technique and modifications when needed. Arm bike for 15 min at 20 cooney resistance, no recovery break. Wrist flex/ext/uln dev/rad dev using 2# wt 3 sets 10 reps. Theratubing completed 3 exercise 10-15 reps each. Pt then ambulated back to room with 1 recovery break using FWW. OT Short Term Goals Short Term Goals Time Frame: Mar 01, 2023 Shower/bathe self: 3 Lower body dressin Putting on/taking off footwear: 3 OT Chcf Goals Production Mechanic Goals Time Frame: Mar 15, 2023 Acute change in mental status: 0 Inattention: 0 Disorganized thinkin Altered level of consciousness: 0 Eating (QC): 6 Oral Hygiene (QC): 6 Toileting Hygiene (QC): 6 Shower/Bathe Self (QC): 6 Upper Body Dressing (QC): 6 Lower Body Dressing (QC): 6 On/Off Footwear (QC): 6 Additional Goals: 1-Demonstrate ADL Tasks, 2-Verbalize Understanding, 3- ImproveStrength/Josie 1=Demonstrate adherence to instructed precautions during ADL tasks. 2=Patient will verbalize/demonstrate understanding of assistive devices/modifications for ADL. 3=Patient will improve strength/tolerance for activity to enable patient to perform ADL's. OT Education/Plan Problem List/Assessment Assessment: Decreased Activ Tolerance, Decreased UE Strength, Impaired Self- Care Skills Discharge Recommendations Plan/Recommendations: Continue POC Treatment Plan/Plan of Care Patient would benefit from OT for education, treatment and training to promote independence in ADL's, mobility, safety and/or upper extremity function for ADL's. Plan of Care: ADL Retraining, Functional Mobility, Group Exercise/Act as Ind, UE Funct Exercise/Act Treatment Duration: Mar 15, 2023 Frequency: At least 5 of 7 days/Wk (IRF) Estimated Hrs Per Day: 1.5 hours per day Agreement: Yes Rehab Potential: Good Time Start Time: :03 Stop Time: 10:03 DATE: Feb 26, 2023 Total Time Billed (hr/min): 90 Billed Treatment Time 1 visit-FA 2 (30 min) EX 3 (45 min) ADL 1 (15 min) co-treat with PT [id number], individual [phone] RACHEL LEVI [facility] Feb 26, 2023 10:53
[2023-02-26] MEDS: ONDANSETRON 4 MG (ZOFRAN) ORAL DISSOLVE TAB PO PRN (17:55)
[2023-02-26 20:34] VITALS: BP 85/51
[2023-02-26 21:40] VITALS: BP 95/54
[2023-02-27] MEDS: ONDANSETRON 4 MG (ZOFRAN) ORAL DISSOLVE TAB PO PRN (00:29)
--- NOTE | 2023-02-27 05:03 | PM&R Progress Note ---
Subjective HPI/CC On Admission Date Seen by Provider: Feb 27, 2023 Time Seen by Provider: 11:30 Subjective/Events-last exam 02/27/2023: No major issues INR 3.1 Labs stable Holding Coumadin 02/26/2023: Doing much better No pain BM+ Less jaundiced 02/25/2023: No major issues Monitoring creat and potassium and INR No falls with improved ambulation 02/24/2023: No major issues Checking labs in am Good ambulation Eating well Vaginal bleeding is less 02/23/2023: Pt is much improved ambulatory johnson No pain reported BM+ Labs reviewed INR 3.9 so will decrease Coumadin to 1.5mg 02/22/2023: Much improved Sugars improved No falls Participation is good 02/21/2023: Much improved participation today Education yesterday and family meeting seemed to have resulted on improved participation No pain reported 02/20/2023: Overall improved status Moving better Lack of motivation is an issue No pain 02/19/2023: Doing well Dr Barragan will consult on DUB Wanted to leave A but agreed to have team meeting results reviewed tomorrow and make decision Abdominal pain reported but subtle report 02/18/2023: Doing well No major issues Will send copies of labs to [facility] due to increased creatinine Ambulating well TV USG today 02/17/2023: No major events overnight Vaginal bleeding noted and no menses since 2015 when she was dx with OMARI She goes to [facility] every 6 months but she missed recent appt due to hospital stay SALCIDO was dx in 2016 when she was in hospital at [facility] when she had an infected cyst of her kidney TV and Pelvic USG will be performed tomorrow 02/16/2023: No major issues Hypotension is slightly symptomatic No bleeding No falls 02/15/2023: Had a good night Ambulating to the wheelchair and transfers are good TB 10 Still jaundiced Creat 2 Monitoring closely Review of Systems General: Fatigue, Malaise Objective Exam Vital Signs Vital Signs Date Time Temp Pulse Resp B/P (MAP) Pulse Ox O2 Delivery O2 Flow Rate FiO2 02/27/23 20:30 NIV CPAP 02/27/23 19:37 36.7 56 16 94/46 (62) 95 Capillary Refill : General Appearance: No Apparent Distress, WD/WN, Chronically ill, Obese, Other (jaundiced) HEENT: PERRL/EOMI, Normal ENT Inspection, Pharynx Normal Neck: Full Range of Motion, Normal Inspection, Non Tender, Supple, Carotid Bruit Respiratory: Chest Non Tender, Lungs Clear, Normal Breath Sounds, No Accessory Muscle Use, No Respiratory Distress Cardiovascular: Regular Rate, Rhythm, No Edema, No Gallop, No JVD, No Murmur, Normal Peripheral Pulses Gastrointestinal: Normal Bowel Sounds, No Organomegaly, No Pulsatile Mass, Non Tender, Soft Back: Normal Inspection, No CVA Tenderness, No Vertebral Tenderness Extremity: Normal Capillary Refill, Normal Inspection, Normal Range of Motion, Non Tender, No Calf Tenderness, No Pedal Edema Neurologic/Psychiatric: Alert, Oriented x3, transfer and pumphouse operator II-XII Norm as Tested, Abnormal Gait, Depressed Affect, Motor Weakness (generalized) Skin: Normal Color, Warm/Dry Lymphatic: No Adenopathy Results/Procedures Lab Laboratory Tests 02/27/23 05:31 Patient resulted labs reviewed. FIM Transfers Therapy Code Descriptions/Definitions Functional [place] Measure: 0=Not Assessed/NA 4=Minimal Assistance 1=Total Assistance 5=Supervision or Setup 2=Maximal Assistance 6=Modified [place] 3=Moderate Assistance 7=Complete IndependenceSCALE: Activities may be completed with or without assistive devices. 5-Yzlzwunjgd-tfbbayu completes the activity by him/herself with no assistance from a helper. 5-Set-up or Clean-up Assistance-helper sets up or cleans up; patient completes activity. [place] assists only prior to or following the activity. 4-Supervision or Touching Assistance-helper provides verbal cues and/or touching/steadying and/or contact guard assistance as patient completes activity. Assistance may be provided throughout the activity or intermittently. 3-Partial/Moderate Assistance-helper does LESS THAN HALF the effort. [place] lifts, holds or supports trunk or limbs, but provides less than half the effort. 2-Substantial/Maximal Assistance-helper does MORE THAN HALF the effort. [place] lifts or holds trunk or limbs and provides more than half the effort. 6-Rmusnjnzv-uiqcpu does ALL the effort. Patient does none of the effort to complete the activity. Or, the assistance of 2 or more helpers is required for the patient to complete the activity. If activity was not attempted, code reason: 7-Patient Refused. 9-Not Applicable-not attempted and the patient did not perform the activity before the current illness, exacerbation or injury. 10-Not Attempted due to Environmental Limitations-(lack of equipment, weather restraints, etc.). 88-Not Attempted due to Medical Conditions or Safety Concerns. Roll Left to Right (QC): 6 Sit to Lying (QC): 3 Sit to Stand (QC): 5 Chair/Jvz-dm-Kptjk Xfer(QC): 6 Car Transfer (QC): 3 Gait Training Does the Patient Walk?: Yes Distance: 150' Walk 10 feet (QC): 6 Walk 50 ft with 2 Turns(QC): 5 Walk 150 ft (QC): 5 Walking 10ft/uneven surface-QC: 3 (with FWW) Gait Persons Needed: 1 Gait Assistive Device: FWW Wheelchair Training Does the Pt Use a Wheelchair?: Yes Wheel 50 ft with 2 turns (QC): 4 Wheel 150 ft (QC): 88 Type of Wheelchair: Manual Stair Training #of Steps: 0 1 Step (curb) (QC): 3 (FWW to step up onto 2" step/mat, cues to not understep walker when placing it up on mat/"curb") 4 Steps (QC): 88 12 Steps (QC): 88 Balance Picking up an Object (QC): 88 ADL-Treatment Eating (QC): 6 Oral Hygiene (QC): 6 Shower/Bathe Self (QC): 6 Upper Body Dressing (QC): 5 Lower Body Dressing (QC): 5 On/Off Footwear (QC): 5 Toileting Hygiene (QC): 4 Toilet Transfer (QC): 4 Assessment/Plan Assessment and Plan Assess & Plan/Chief Complaint Assessment: s/p hepatic encepphalopathy episode 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 Morbid obesity Bacteremia completing Keflex AF w/recent RVR on Coumadin Recurrent DVT so on Coumadin long-term DM insulin dependent HTN LIZBETH on CPAP DAVID recently CKD creat 2.8 DUB ordered USG 02/18/23 revealing abnormal endometrium thickening will consult AUTOMOBILE BODY 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 Hyperkalemia-ordered one dose Kayexelate Plan: PT OT Home meds CPAP to be brought in Insulin 02/15/2023: Monitor closely Labs reviewed Chronic hypotension due to CLD 02/16/2023: Monitor closely Fall risk 02/17/2023: Monitor closely Check TV USG tomorrow 02/18/2023: TVUSG Send copies of labs to Hepatology Gustavo 02/19/2023: Evaluate progress tomorrow Patient will not leave AMA today 02/20/2023: Continue to encourage If apathy continues she may need hospice 02/21/2023: Improved overall Increase therapies 02/22/2023: Monitor closely Check labs in morning 02/23/2023: Monitor INR and potassium and creat 02/24/2023: Monitor labs closely 02/25/2023: Monitor creat 02/26/2023: Check labs tomorrow Much improved 02/27/2023: INR tomorrow Hold Coumadin Vaginal bleeding still present Will speak to PCP Toshia Amos tomorrow since clinic closed today [facility] rescheduled for May (1) Hepatic encephalopathy LUCY LANG DO Feb 27, 2023 05:03
[2023-02-27 05:49] LABS: LYMPHOCYTES % (AUTO) 27 % (12-44)
[2023-02-27 05:51] LABS: BASOPHILS % (AUTO) 1 % (0-10); EOSINOPHILS # (AUTO) 0.1 10^3/uL (0.0-0.3); EOSINOPHILS % (AUTO) 3 % (0-10); HEMATOCRIT 23 % (35-52); HEMOGLOBIN 7.7 g/dL (11.5-16.0); LYMPHOCYTES # (AUTO) 0.7 10^3/uL (1.0-4.0); MEAN CORPUSCULAR HEMOGLOBIN 38 pg (25-34); MEAN CORPUSCULAR HGB CONC 34 g/dL (32-36); MEAN CORPUSCULAR VOLUME 111 fL (80-99); MEAN PLATELET VOLUME 11.7 fL (9.0-12.2); MONOCYTES # (AUTO) 0.4 10^3/uL (0.0-1.0); MONOCYTES % (AUTO) 15 % (0-12); NEUTROPHILS # (AUTO) 1.4 10^3/uL (1.8-7.8); NEUTROPHILS % (AUTO) 52 % (42-75); PLATELET COUNT 49 10^3/uL (130-400); WHITE BLOOD COUNT 2.6 10^3/uL (4.3-11.0)
[2023-02-27 06:05] LABS: INR 3.1 (0.8-1.4); PROTHROMBIN TIME PATIENT 32.2 SEC (12.2-14.7)
[2023-02-27 06:08] LABS: ALBUMIN 2.7 GM/DL (3.2-4.5); POTASSIUM 4.9 MMOL/L (3.6-5.0)
[2023-02-27 06:09] LABS: CALCIUM 8.8 MG/DL (8.5-10.1)
[2023-02-27 06:10] LABS: TOTAL PROTEIN 5.5 GM/DL (6.4-8.2)
[2023-02-27 06:12] LABS: BILIRUBIN,TOTAL 7.8 MG/DL (0.1-1.0)
[2023-02-27 06:14] LABS: CREATININE SERUM 2.41 MG/DL (0.60-1.30)
[2023-02-27] MEDS: LEVOTHYROXINE 112 MCG (LEVOTHROID) TAB PO SCH (06:46)
[2023-02-27] MEDS: PANTOPRAZOLE 40 MG (PROTONIX) TAB PO SCH (06:46)
[2023-02-27] MEDS: inSUlin ASPART (NovoLOG) 1 UNIT/0.01 ML (CHARGE PER UNIT) SQ SCH ×3 (07:38→17:47)
[2023-02-27 07:52] VITALS: BP 129/59
[2023-02-27 07:53] VITALS: BP 129/59
[2023-02-27] MEDS: BUMETANIDE 1 MG (BUMEX) TAB PO SCH (08:11)
[2023-02-27] MEDS: RIFAXIMIN 550 MG TABLET (XIFAXAN) PO SCH ×2 (08:11→21:34)
[2023-02-27] MEDS: DOCUSATE SODIUM 100 MG (COLACE) CAP PO SCH ×2 (08:11→21:34)
[2023-02-27] MEDS: MIDODRINE 10 MG (PROAMATINE) TAB PO SCH ×3 (08:11→21:34)
[2023-02-27] MEDS: meTOprolol TARTRATE 25 MG (LOPRESSOR) TABLET PO SCH ×2 (08:11→20:06)
[2023-02-27] MEDS: SPIRONOLACTONE 100 MG (ALDACTONE) TABLET PO SCH (08:12)
[2023-02-27] MEDS: MICONAZOLE 2% POWDER (DESENEX AF) 90 GM TOP SCH ×2 (08:12→21:36)
[2023-02-27] MEDS: SENNA W/DOCUSATE (SENOKOT S) TABLET PO SCH ×2 (08:12→21:34)
[2023-02-27] MEDS: polyethylene glycoL POWDER 17 GM (MIRALAX) PACK PO SCH ×2 (08:14→20:07)
[2023-02-27] MEDS: HYPOCHLOROUS ACID/NaCl (VASHE) 250 ML IR SCH ×2 (09:00→21:16)
--- NOTE | 2023-02-27 09:57 | Occupational Ther Daily Note ---
OT Current Status-Daily Note Subjective Pt alert, sitting in recliner. Pt stated that she had a bad afternoon yesterday with nausea and slept all afternoon and night. She still does not feel the best, but does agree to participate in OT in room. Mental Status/Objective Patient Orientation: Person, Place, Time, Situation ADL-Treatment Pt declined shower, oral care and toileting. Did request to change hospital gown, set up. Therapy Code Descriptions/Definitions Functional [place] Measure: 0=Not Assessed/NA 4=Minimal Assistance 1=Total Assistance 5=Supervision or Setup 2=Maximal Assistance 6=Modified [place] 3=Moderate Assistance 7=Complete IndependenceSCALE: Activities may be completed with or without assistive devices. 4-Ynjlqdrsqv-alhkrvv completes the activity by him/herself with no assistance from a helper. 5-Set-up or Clean-up Assistance-helper sets up or cleans up; patient completes activity. [place] assists only prior to or following the activity. 4-Supervision or Touching Assistance-helper provides verbal cues and/or touching/steadying and/or contact guard assistance as patient completes activity. Assistance may be provided throughout the activity or intermittently. 3-Partial/Moderate Assistance-helper does LESS THAN HALF the effort. [place] lifts, holds or supports trunk or limbs, but provides less than half the effort. 2-Substantial/Maximal Assistance-helper does MORE THAN HALF the effort. [place] lifts or holds trunk or limbs and provides more than half the effort. 1-Itjuqpzjk-ocjeca does ALL the effort. Patient does none of the effort to complete the activity. Or, the assistance of 2 or more helpers is required for the patient to complete the activity. If activity was not attempted, code reason: 7-Patient Refused. 9-Not Applicable-not attempted and the patient did not perform the activity before the current illness, exacerbation or injury. 10-Not Attempted due to Environmental Limitations-(lack of equipment, weather restraints, etc.). 88-Not Attempted due to Medical Conditions or Safety Concerns. Upper Body Dressing (QC): 5 Other Treatment Pt completed B UE exercises to increase strength for daily functional tasks. 1# wt placed on wrists to strengthen during functional tasks, pt tolerated well. Pt then completed 4 exercises, 2 sets 20 reps and 2 set 10 reps(shldrs). After session, pt sitting in recliner with call light/phone in reach. All needs met in room. OT Short Term Goals Short Term Goals Time Frame: Mar 01, 2023 Shower/bathe self: 3 Lower body dressin Putting on/taking off footwear: 3 OT Alf Goals Electrochemist Goals Time Frame: Mar 15, 2023 Acute change in mental status: 0 Inattention: 0 Disorganized thinkin Altered level of consciousness: 0 Eating (QC): 6 Oral Hygiene (QC): 6 Toileting Hygiene (QC): 6 Shower/Bathe Self (QC): 6 Upper Body Dressing (QC): 6 Lower Body Dressing (QC): 6 On/Off Footwear (QC): 6 Additional Goals: 1-Demonstrate ADL Tasks, 2-Verbalize Understanding, 3- ImproveStrength/Jsoie 1=Demonstrate adherence to instructed precautions during ADL tasks. 2=Patient will verbalize/demonstrate understanding of assistive devices/modifications for ADL. 3=Patient will improve strength/tolerance for activity to enable patient to perform ADL's. OT Education/Plan Problem List/Assessment Assessment: Decreased Activ Tolerance, Decreased UE Strength, Impaired Bed Mobility, Impaired Self-Care Skills Discharge Recommendations Plan/Recommendations: Continue POC Treatment Plan/Plan of Care Patient would benefit from OT for education, treatment and training to promote independence in ADL's, mobility, safety and/or upper extremity function for ADL's. Plan of Care: ADL Retraining, Functional Mobility, Group Exercise/Act as Ind, UE Funct Exercise/Act Treatment Duration: Mar 15, 2023 Frequency: At least 5 of 7 days/Wk (IRF) Estimated Hrs Per Day: 1.5 hours per day Agreement: Yes Rehab Potential: Good Time Start Time: 08:30 Stop Time: 10:00 DATE: Feb 27, 2023 Total Time Billed (hr/min): 90 Billed Treatment Time 1 visit-FA 2 (30 min) EX 4 (60 min) RACHEL LEVI Feb 27, 2023 09:57
--- NOTE | 2023-02-27 11:54 | Physical Therapy Daily Note ---
PT Daily Note-Current Subjective pt in recliner when entering the room. pt states since yesterday afternoon she has been feeling nauseous and light headed. nursing is aware and labs have been drawn as of this morning. Pain Section J - Health Conditions 1. Rarely or not at all 2. Occasionally 3. Frequently 4. Almost constantly 8. Unable to answer Pain Effect on Sleep: 1 Pain Interference with Therapy: 2 Pain Interference w/Day-to-Day: 1 Transfers SCALE: Activities may be completed with or without assistive devices. 7-Kpssrjbdua-bvprmhb completes the activity by him/herself with no assistance from a helper. 5-Set-up or Clean-up Assistance-helper sets up or cleans up; patient completes activity. [place] assists only prior to or following the activity. 4-Supervision or Touching Assistance-helper provides verbal cues and/or touching/steadying and/or contact guard assistance as patient completes activity. Assistance may be provided throughout the activity or intermittently. 3-Partial/Moderate Assistance-helper does LESS THAN HALF the effort. [place] lifts, holds or supports trunk or limbs, but provides less than half the effort. 2-Substantial/Maximal Assistance-helper does MORE THAN HALF the effort. [place] lifts or holds trunk or limbs and provides more than half the effort. 6-Zfsbwoknq-wpgjow does ALL the effort. Patient does none of the effort to compl ete the activity. Or, the assistance of 2 or more helpers is required for the patient to complete the activity. If activity was not attempted, code reason: 7-Patient Refused. 9-Not Applicable-not attempted and the patient did not perform the activity before the current illness, exacerbation or injury. 10-Not Attempted due to Environmental Limitations-(lack of equipment, weather restraints, etc.). 88-Not Attempted due to Medical Conditions or Safety Concerns. Weight Bearing Weight Bearing/Tolerated Weight Bearing/Tolerated Exercises Seated Therapy Exercises: Ankle pumps, Sit to stand, Long arc quads, Hip flexion, Kicking activity, Hamstring Curls, Hip abd/add, Glut set Standing: Mini squats, Sit to Stand Treatments pt preformed laying and seated ther-ex in all planes of motion 3 sets of 10 reps. pt is able to preform sit tot stand transfers with SBA of aprox 30 ft with rw but reqired a rest after secondary to slight dizziness. pt is able to preform toileting independently this day. Assessment Current Status: Good Progress PT Retirement Goals Architectural Renderer Goals PT Architectural Renderer Goals Time Frame: Mar 08, 2023 Roll Left & Right (QC): 6 Sit to Lying (QC): 6 Lying-Sitting on Side/Bed(QC): 6 Sit to Stand (QC): 6 Chair/Lgr-mi-Oqgaz Xfer(QC): 6 Toilet Transfer (QC): 6 Car Transfer (QC): 5 Does the Patient Walk: Yes Walk 10 feet (QC): 6 Walk 50ft with 2 Turns (QC): 6 Walk 150 ft (QC): 4 Walking 10ft on Uneven Surface: 6 1 Step (curb) (QC): 6 4 Steps (QC): 4 12 Steps (QC): 9 Picking up an Object (QC): 5 Does the Pt use WC or Scooter?: Yes Wheel 50 feet with 2 turns (QC: 6 Type: Manual Wheel 150 feet: 6 PT Plan Treatment/Plan Treatment Plan: Continue Plan of Care Treatment Plan: Bed Mobility, Education, Functional Activity Josie, Functional Strength, Group Therapy, Gait, Safety, Therapeutic Exercise, Transfers Treatment Duration: Mar 08, 2023 Frequency: At least 5 of 7 days/Wk (IRF) Estimated Hrs Per Day: 1.5 hours per day Patient and/or Family Agrees t: Yes Time Time In: 1030 Time Out: 1200 DATE: Feb 27, 2023 Total Billed Treatment Time: 90 Total Billed Treatment 1, gt x 2, fa x 2, ex x 2 Isamar Mendiola WIRELESS DEVELOPMENT MANAGER Feb 27, 2023 11:54
[2023-02-27 19:37] VITALS: BP 94/46
[2023-02-28 05:55] LABS: INR 2.8 (0.8-1.4); PROTHROMBIN TIME PATIENT 29.9 SEC (12.2-14.7)
--- NOTE | 2023-02-28 06:21 | PM&R Progress Note ---
Subjective HPI/CC On Admission Date Seen by Provider: Feb 28, 2023 Time Seen by Provider: 12:00 Subjective/Events-last exam 02/28/2023: No major issues Ready for DC tomorrow No pain DUB is still present Attempted to call PCP but no success 02/27/2023: No major issues INR 3.1 Labs stable Holding Coumadin 02/26/2023: Doing much better No pain BM+ Less jaundiced 02/25/2023: No major issues Monitoring creat and potassium and INR No falls with improved ambulation 02/24/2023: No major issues Checking labs in am Good ambulation Eating well Vaginal bleeding is less 02/23/2023: Pt is much improved ambulatory johnson No pain reported BM+ Labs reviewed INR 3.9 so will decrease Coumadin to 1.5mg 02/22/2023: Much improved Sugars improved No falls Participation is good 02/21/2023: Much improved participation today Education yesterday and family meeting seemed to have resulted on improved participation No pain reported 02/20/2023: Overall improved status Moving better Lack of motivation is an issue No pain 02/19/2023: Doing well Dr Barragan will consult on DUB Wanted to leave AMA but agreed to have team meeting results reviewed tomorrow and make decision Abdominal pain reported but subtle report 02/18/2023: Doing well No major issues Will send copies of labs to [place] due to increased creatinine Ambulating well TV USG today 02/17/2023: No major events overnight Vaginal bleeding noted and no menses since 2015 when she was dx with SALCIDO She goes to [facility] every 6 months but she missed recent appt due to hospital stay SALCIDO was dx in 2015 when she was in hospital at [place] when she had an infected cyst of her kidney TV and Pelvic USG will be performed tomorrow 02/16/2023: No major issues Hypotension is slightly symptomatic No bleeding No falls 02/15/2023: Had a good night Ambulating to the wheelchair and transfers are good TB 10 Still jaundiced Creat 2 Monitoring closely Review of Systems General: Fatigue, Malaise Objective Exam Vital Signs Vital Signs Date Time Temp Pulse Resp B/P (MAP) Pulse Ox O2 Delivery O2 Flow Rate FiO2 02/28/23 20:40 Room Air 02/28/23 19:44 36.4 57 20 100/60 (73) 94 Capillary Refill : General Appearance: No Apparent Distress, WD/WN, Chronically ill, Obese, Other (jaundiced) HEENT: PERRL/EOMI, Normal ENT Inspection, Pharynx Normal Neck: Full Range of Motion, Normal Inspection, Non Tender, Supple, Carotid Bruit Respiratory: Chest Non Tender, Lungs Clear, Normal Breath Sounds, No Accessory Muscle Use, No Respiratory Distress Cardiovascular: Regular Rate, Rhythm, No Edema, No Gallop, No JVD, No Murmur, Normal Peripheral Pulses Gastrointestinal: Normal Bowel Sounds, No Organomegaly, No Pulsatile Mass, Non Tender, Soft Back: Normal Inspection, No CVA Tenderness, No Vertebral Tenderness Extremity: Normal Capillary Refill, Normal Inspection, Normal Range of Motion, Non Tender, No Calf Tenderness, No Pedal Edema Neurologic/Psychiatric: Alert, Oriented x3, 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 FIM Transfers Therapy Code Descriptions/Definitions Functional [place] Measure: 0=Not Assessed/NA 4=Minimal Assistance 1=Total Assistance 5=Supervision or Setup 2=Maximal Assistance 6=Modified [place] 3=Moderate Assistance 7=Complete IndependenceSCALE: Activities may be completed with or without assistive devices. 8-Ugjnzfaijx-ozkshke completes the activity by him/herself with no assistance from a helper. 5-Set-up or Clean-up Assistance-helper sets up or cleans up; patient completes activity. [place] assists only prior to or following the activity. 4-Supervision or Touching Assistance-helper provides verbal cues and/or touchi ng/steadying and/or contact guard assistance as patient completes activity. Assistance may be provided throughout the activity or intermittently. 3-Partial/Moderate Assistance-helper does LESS THAN HALF the effort. [place] lifts, holds or supports trunk or limbs, but provides less than half the effort. 2-Substantial/Maximal Assistance-helper does MORE THAN HALF the effort. [place] lifts or holds trunk or limbs and provides more than half the effort. 8-Qcymcfjqb-axdnud does ALL the effort. Patient does none of the effort to complete the activity. Or, the assistance of 2 or more helpers is required for the patient to complete the activity. If activity was not attempted, code reason: 7-Patient Refused. 9-Not Applicable-not attempted and the patient did not perform the activity before the current illness, exacerbation or injury. 10-Not Attempted due to Environmental Limitations-(lack of equipment, weather restraints, etc.). 88-Not Attempted due to Medical Conditions or Safety Concerns. Roll Left to Right (QC): 6 Sit to Lying (QC): 3 Sit to Stand (QC): 5 Chair/Rdi-si-Kmbel Xfer(QC): 6 Car Transfer (QC): 3 Gait Training Does the Patient Walk?: Yes Distance: 150' Walk 10 feet (QC): 6 Walk 50 ft with 2 Turns(QC): 5 Walk 150 ft (QC): 5 Walking 10ft/uneven surface-QC: 3 (with FWW) Gait Persons Needed: 1 Gait Assistive Device: FWW Wheelchair Training Does the Pt Use a Wheelchair?: Yes Wheel 50 ft with 2 turns (QC): 4 Wheel 150 ft (QC): 88 Type of Wheelchair: Manual Stair Training #of Steps: 0 1 Step (curb) (QC): 3 (FWW to step up onto 2" step/mat, cues to not understep walker when placing it up on mat/"curb") 4 Steps (QC): 88 12 Steps (QC): 88 Balance Picking up an Object (QC): 88 ADL-Treatment Eating (QC): 6 Oral Hygiene (QC): 6 Shower/Bathe Self (QC): 6 Upper Body Dressing (QC): 5 Lower Body Dressing (QC): 5 On/Off Footwear (QC): 5 Toileting Hygiene (QC): 4 Toilet Transfer (QC): 4 Assessment/Plan Assessment and Plan Assess & Plan/Chief Complaint Assessment: s/p hepatic encepphalopathy episode 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 Morbid obesity Bacteremia completing Keflex AF w/recent RVR on Coumadin Recurrent DVT so on Coumadin long-term DM insulin dependent HTN LIZBETH on CPAP DAVID recently CKD creat 2.8 DUB ordered USG 02/18/23 revealing abnormal endometrium thickening will consult [facility] Hyperkalemia-ordered one dose Kayexelate Plan: PT OT Home meds CPAP to be brought in Insulin 02/15/2023: Monitor closely Labs reviewed Chronic hypotension due to CLD 02/16/2023: Monitor closely Fall risk 02/17/2023: Monitor closely Check TV USG tomorrow 02/18/2023: TVUSG Send copies of labs to Hepatology Gustavo 02/19/2023: Evaluate progress tomorrow Patient will not leave AMA today 02/20/2023: Continue to encourage If apathy continues she may need hospice 02/21/2023: Improved overall Increase therapies 02/22/2023: Monitor closely Check labs in morning 02/23/2023: Monitor INR and potassium and creat 02/24/2023: Monitor labs closely 02/25/2023: Monitor creat 02/26/2023: Check labs tomorrow Much improved 02/27/2023: INR tomorrow Hold Coumadin Vaginal bleeding still present Will speak to PCP Toshia Amos tomorrow since clinic closed today [facility] rescheduled for 02/28/2023: No issues DC tomorrow (1) Hepatic encephalopathy LUCY LANG DO Feb 28, 2023 06:21
[2023-02-28] MEDS: LEVOTHYROXINE 112 MCG (LEVOTHROID) TAB PO SCH (07:03)
[2023-02-28] MEDS: PANTOPRAZOLE 40 MG (PROTONIX) TAB PO SCH (07:03)
[2023-02-28] MEDS: inSUlin ASPART (NovoLOG) 1 UNIT/0.01 ML (CHARGE PER UNIT) SQ SCH ×3 (07:04→17:02)
[2023-02-28 07:23] VITALS: BP 112/55
--- NOTE | 2023-02-28 07:53 | Occupational Ther Daily Note ---
OT Current Status-Daily Note Subjective Pt alert, lying in bed. Pt agrees to therapy. No c/o pain. Mental Status/Objective Patient Orientation: Person, Time, Situation ADL-Treatment Pt agrees to shower. Independent for eating. Independent oral care sitting at sink. Pt demonstrates ability to gather items to dress using FWW safely, independent. Independent toileting and toilet transfer using FWW. Independent shower sitting on shower bench and using grabbars, hand held shower and LH sponge. Independent for UBD. Independent LBD using FWW and AE. Using AE for footwear, independent. After therapy, pt sitting in recliner with call light/phone in reach. All needs met. Therapy Code Descriptions/Definitions Functional [place] Measure: 0=Not Assessed/NA 4=Minimal Assistance 1=Total Assistance 5=Supervision or Setup 2=Maximal Assistance 6=Modified [place] 3=Moderate Assistance 7=Complete IndependenceSCALE: Activities may be completed with or without assistive devices. 3-Jsvgydbbma-efvsmqf completes the activity by him/herself with no assistance from a helper. 5-Set-up or Clean-up Assistance-helper sets up or cleans up; patient completes activity. [place] assists only prior to or following the activity. 4-Supervision or Touching Assistance-helper provides verbal cues and/or touching/steadying and/or contact guard assistance as patient completes activity. Assistance may be provided throughout the activity or intermittently. 3-Partial/Moderate Assistance-helper does LESS THAN HALF the effort. [place] lifts, holds or supports trunk or limbs, but provides less than half the effort. 2-Substantial/Maximal Assistance-helper does MORE THAN HALF the effort. [place] lifts or holds trunk or limbs and provides more than half the effort. 7-Sarftlheq-jqgpfg does ALL the effort. Patient does none of the effort to complete the activity. Or, the assistance of 2 or more helpers is required for the patient to complete the activity. If activity was not attempted, code reason: 7-Patient Refused. 9-Not Applicable-not attempted and the patient did not perform the activity bef ore the current illness, exacerbation or injury. 10-Not Attempted due to Environmental Limitations-(lack of equipment, weather r estraints, etc.). 88-Not Attempted due to Medical Conditions or Safety Concerns. Eating (QC): 6 Oral Hygiene (QC): 6 Shower/Bathe Self (QC): 6 Upper Body Dressing (QC): 6 Lower Body Dressing (QC): 6 On/Off Footwear: 6 Toileting Hygiene (QC): 6 Toilet Transfer (QC): 6 BIMS CAM BIMS Expression of Ideas and Wants: Without Difficulty Understanding Verbal Content: Understands Brief Interview/Mental Status: Yes IRF ALICIA BIMS: IRF ALICIA BIMS Response (Comments) Value Repitition of Three Words Three 3 Recalls Socks Yes, No Cue Required 2 Recalls Blue Yes, No Cue Required 2 Recalls Bed Yes, No Cue Required 2 Year Correct 3 Month Accurate Within 5 Days 2 Day Correct 1 Total 15 Patient Normally Able to Recal: Current Session, Location of own room, Staff Names and faces, That he/she in a hsp Should Staff Asses. Mental St.: No CAM Mental Status Change/Baseline: 0 Inattention: 0 Disorganized thinkin Altered level of consciousness: 0 OT Short Term Goals Short Term Goals Time Frame: Mar 01, 2023 Shower/bathe self: 3 Lower body dressin Putting on/taking off footwear: 3 OT Key Entry Operator Goals Key Entry Operator Goals Time Frame: Mar 15, 2023 Acute change in mental status: 0 Inattention: 0 Disorganized thinkin Altered level of consciousness: 0 Eating (QC): 6 (met) Oral Hygiene (QC): 6 (met) Toileting Hygiene (QC): 6 (met) Shower/Bathe Self (QC): 6 (met) Upper Body Dressing (QC): 6 (met) Lower Body Dressing (QC): 6 (emt) On/Off Footwear (QC): 6 (met) Additional Goals: 1-Demonstrate ADL Tasks, 2-Verbalize Understanding, 3-ImproveStrength/Josie 1=Demonstrate adherence to instructed precautions during ADL tasks. 2=Patient will verbalize/demonstrate understanding of assistive devices/modifications for ADL. 3=Patient will improve strength/tolerance for activity to enable patient to perform ADL's. OT Education/Plan Problem List/Assessment Assessment: Decreased Activ Tolerance, Impaired Self-Care Skills Discharge Recommendations Plan/Recommendations: Continue POC Therapy Discharge Recommendati: Home & Family Treatment Plan/Plan of Care Patient would benefit from OT for education, treatment and training to promote independence in ADL's, mobility, safety and/or upper extremity function for ADL's. Plan of Care: ADL Retraining, Functional Mobility, Group Exercise/Act as Ind, UE Funct Exercise/Act Treatment Duration: Mar 15, 2023 Frequency: At least 5 of 7 days/Wk (IRF) Estimated Hrs Per Day: 1.5 hours per day Agreement: Yes Rehab Potential: Good Time Start Time: 07:00 Stop Time: 08:30 DATE: Feb 28, 2023 Total Time Billed (hr/min): 90 Billed Treatment Time 1 visit-ADL 6 (90 min) RACHEL LEVI Feb 28, 2023 07:53
[2023-02-28] MEDS: MIDODRINE 10 MG (PROAMATINE) TAB PO SCH ×3 (07:56→19:59)
[2023-02-28] MEDS: RIFAXIMIN 550 MG TABLET (XIFAXAN) PO SCH ×2 (07:56→19:58)
[2023-02-28] MEDS: BUMETANIDE 1 MG (BUMEX) TAB PO SCH (07:56)
[2023-02-28] MEDS: SPIRONOLACTONE 100 MG (ALDACTONE) TABLET PO SCH (07:56)
[2023-02-28] MEDS: meTOprolol TARTRATE 25 MG (LOPRESSOR) TABLET PO SCH ×2 (07:57→19:58)
[2023-02-28] MEDS: MICONAZOLE 2% POWDER (DESENEX AF) 90 GM TOP SCH ×2 (07:57→20:01)
[2023-02-28] MEDS: polyethylene glycoL POWDER 17 GM (MIRALAX) PACK PO SCH ×2 (07:58→20:01)
[2023-02-28] MEDS: HYPOCHLOROUS ACID/NaCl (VASHE) 250 ML IR SCH ×2 (07:58→20:01)
[2023-02-28] MEDS: DOCUSATE SODIUM 100 MG (COLACE) CAP PO SCH ×2 (07:58→19:59)
[2023-02-28] MEDS: SENNA W/DOCUSATE (SENOKOT S) TABLET PO SCH ×2 (07:58→19:58)
--- NOTE | 2023-02-28 11:54 | Physical Therapy Daily Note ---
PT Daily Note-Current Subjective Pt reports she is improving and is excited to go home tomorrow. Pain Section J - Health Conditions 1. Rarely or not at all 2. Occasionally 3. Frequently 4. Almost constantly 8. Unable to answer Pain Effect on Sleep: 1 Pain Interference with Therapy: 2 Pain Interference w/Day-to-Day: 1 Transfers SCALE: Activities may be completed with or without assistive devices. 3-Pwneqlvwvz-oorengj completes the activity by him/herself with no assistance from a helper. 5-Set-up or Clean-up Assistance-helper sets up or cleans up; patient completes activity. [place] assists only prior to or following the activity. 4-Supervision or Touching Assistance-helper provides verbal cues and/or touching/steadying and/or contact guard assistance as patient completes activity. Assistance may be provided throughout the activity or intermittently. 3-Partial/Moderate Assistance-helper does LESS THAN HALF the effort. [place] lifts, holds or supports trunk or limbs, but provides less than half the effort. 2-Substantial/Maximal Assistance-helper does MORE THAN HALF the effort. [place] lifts or holds trunk or limbs and provides more than half the effort. 4-Zftakraut-aguspn does ALL the effort. Patient does none of the effort to complete the activity. Or, the assistance of 2 or more helpers is required for the patient to complete the activity. If activity was not attempted, code reason: 7-Patient Refused. 9-Not Applicable-not attempted and the patient did not perform the activity before the current illness, exacerbation or injury. 10-Not Attempted due to Environmental Limitations-(lack of equipment, weather restraints, etc.). 88-Not Attempted due to Medical Conditions or Safety Concerns. Sit to Stand (QC): 6 Chair/Wid-rc-Zdixa Xfer(QC): 6 Weight Bearing Weight Bearing/Tolerated Weight Bearing/Tolerated Gait Training Walk 10 feet (QC): 6 Walk 50 ft with 2 Turns(QC): 6 Gait Persons Needed: 1 Gait Assistive Device: FWW Ambulate distances of 125ft, 25ft x 3, 50ft, 75ft all with FWW and CGA. Pt did have on LOB from catching her toe on the floor. She was able to self recover. Exercises Seated Therapy Exercises: Ankle pumps, Sit to stand, Long arc quads, Kicking activity Seated Reps: 20 Standing: Heel/toe raises, 3 way Ex=Flex, Abd, Ext, Marching, Mini squats Standing Reps: 20 All exercises 2 sets x 10. Seated rests approximately each 5 minutes to recover NuStep Minutes: 8 NuStep Workload: 5 Assessment Current Status: Good Progress Pt progressing with strength, mobility, and ambulation. She does fatigue and needs rest after approximately 5 minutes of continuous exercise. PT Snf Goals Snf Goals PT Snf Goals Time Frame: Mar 08, 2023 Roll Left & Right (QC): 6 Sit to Lying (QC): 6 Lying-Sitting on Side/Bed(QC): 6 Sit to Stand (QC): 6 Chair/Omj-pe-Xeuot Xfer(QC): 6 Toilet Transfer (QC): 6 Car Transfer (QC): 5 Does the Patient Walk: Yes Walk 10 feet (QC): 6 Walk 50ft with 2 Turns (QC): 6 Walk 150 ft (QC): 4 Walking 10ft on Uneven Surface: 6 1 Step (curb) (QC): 6 4 Steps (QC): 4 12 Steps (QC): 9 Picking up an Object (QC): 5 Does the Pt use WC or Scooter?: Yes Wheel 50 feet with 2 turns (QC: 6 Type: Manual Wheel 150 feet: 6 PT Plan Treatment/Plan Treatment Plan: Continue Plan of Care Treatment Plan: Bed Mobility, Education, Functional Activity Josie, Functional Strength, Group Therapy, Gait, Safety, Therapeutic Exercise, Transfers Treatment Duration: Mar 08, 2023 Frequency: At least 5 of 7 days/Wk (IRF) Estimated Hrs Per Day: 1.5 hours per day Patient and/or Family Agrees t: Yes Time Time In: 900 Time Out: 1000 DATE: Feb 28, 2023 Total Billed Treatment Time: 60 Total Billed Treatment visit, gait 30 min, ex 30 min TEAGAN ALBERT PT Feb 28, 2023 11:54
--- NOTE | 2023-02-28 15:05 | Physical Therapy Daily Note ---
PT Daily Note-Current Subjective Patient sitting in chair upon PT arrival, agreeable to treatment. Patient rates pain at 0/10 currently. Pain Section J - Health Conditions 1. Rarely or not at all 2. Occasionally 3. Frequently 4. Almost constantly 8. Unable to answer Pain Effect on Sleep: 1 Pain Interference with Therapy: 2 Pain Interference w/Day-to-Day: 1 Mental Status Patient Orientation: Person, Place, Time, Situation Transfers SCALE: Activities may be completed with or without assistive devices. 9-Yszgxfinaq-xdjigsi completes the activity by him/herself with no assistance from a helper. 5-Set-up or Clean-up Assistance-helper sets up or cleans up; patient completes activity. [place] assists only prior to or following the activity. 4-Supervision or Touching Assistance-helper provides verbal cues and/or touching/steadying and/or contact guard assistance as patient completes activity. Assistance may be provided throughout the activity or intermittently. 3-Partial/Moderate Assistance-helper does LESS THAN HALF the effort. [place] lifts, holds or supports trunk or limbs, but provides less than half the effort. 2-Substantial/Maximal Assistance-helper does MORE THAN HALF the effort. [place] lifts or holds trunk or limbs and provides more than half the effort. 7-Zxhmarpfb-oacbva does ALL the effort. Patient does none of the effort to complete the activity. Or, the assistance of 2 or more helpers is required for the patient to complete the activity. If activity was not attempted, code reason: 7-Patient Refused. 9-Not Applicable-not attempted and the patient did not perform the activity before the current illness, exacerbation or injury. 10-Not Attempted due to Environmental Limitations-(lack of equipment, weather restraints, etc.). 88-Not Attempted due to Medical Conditions or Safety Concerns. Roll Left & Right (QC): 6 Sit to Lying (QC): 6 Lying to Sitting/Side of Bed(Q: 6 Sit to Stand (QC): 6 Chair/Qpg-yj-Ilqoj Xfer(QC): 6 Toilet Transfer (QC): 6 Car Transfer (QC): 5 Weight Bearing Weight Bearing/Tolerated Weight Bearing/Tolerated Gait Training Does the Patient Walk?: Yes Distance: 60, 60, 50, 50 feet Walk 10 feet (QC): 6 Walk 50 ft with 2 Turns(QC): 6 Walk 150 ft (QC): 9 Walking 10ft/uneven surface-QC: 4 Gait Assistive Device: FWW Wheelchair Training Does the Pt Use a Wheelchair?: No Wheel 50 ft with 2 turns (QC): 9 Wheel 150 ft (QC): 9 Stair Training Stair Training: Handrails/: uses walker #of Steps: 1 1 Step (curb) (QC): 4 4 Steps (QC): 9 12 Steps (QC): 9 Balance Picking up an Object (QC): 6 Exercises Seated Therapy Exercises: Ankle pumps, Long arc quads, Hip abd/add Seated Reps: 20 Assessment Current Status: Good Progress Patient tolerated treatment well. QCs per formed. Patient performs LE therapeutic exercise as listed above. Patient ambulates 60, 60, 50, 50 feet with FWW, with [place]. Patient performs all transfers as listed above. Patient in recliner post treatment with all needs met, nursing notified, call light in reach. 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 Time Frame: Mar 08, 2023 Roll Left & Right (QC): 6 Sit to Lying (QC): 6 Lying-Sitting on Side/Bed(QC): 6 Sit to Stand (QC): 6 Chair/Ozz-xv-Zoiqq Xfer(QC): 6 Toilet Transfer (QC): 6 Car Transfer (QC): 5 Does the Patient Walk: Yes Walk 10 feet (QC): 6 Walk 50ft with 2 Turns (QC): 6 Walk 150 ft (QC): 4 Walking 10ft on Uneven Surface: 6 1 Step (curb) (QC): 6 4 Steps (QC): 4 12 Steps (QC): 9 Picking up an Object (QC): 5 Does the Pt use WC or Scooter?: Yes Wheel 50 feet with 2 turns (QC: 6 Type: Manual Wheel 150 feet: 6 PT Plan Treatment/Plan Treatment Plan: Continue Plan of Care Treatment Plan: Bed Mobility, Education, Functional Activity Josie, Functional Strength, Group Therapy, Gait, Safety, Therapeutic Exercise, Transfers Treatment Duration: Mar 08, 2023 Frequency: At least 5 of 7 days/Wk (IRF) Estimated Hrs Per Day: 1.5 hours per day Patient and/or Family Agrees t: Yes Safety Risks/Education Patient Education: Gait Training, Transfer Techniques, Steps Teaching Recipient: Patient Teaching Methods: Demonstration, Discussion Response to Teaching: Verbalize Understanding, Return Demonstration Time Time In: 1430 Time Out: 1500 DATE: Feb 28, 2023 Total Billed Treatment Time: 30 Total Billed Treatment Visit, JOSE ALFREDO [place] JOHN A PT Feb 28, 2023 15:05
[2023-02-28] MEDS ORDERED: warFARin 1 MG (COUMADIN) TAB PO SCH (18:00)
[2023-02-28 19:44] VITALS: BP_SYST 100; BP_SYST 87; BP_DIAS 42; BP_DIAS 60
[2023-03-01] MEDS ORDERED: MIDO10TA PO (05:38)
[2023-03-01] MEDS ORDERED: RIFA550T PO (05:38)
[2023-03-01] MEDS ORDERED: INSU100V5 SQ (05:38)
[2023-03-01] MEDS ORDERED: INSU100I40 SC (05:38)
[2023-03-01] MEDS ORDERED: BUME1TAB8 PO (05:39)
[2023-03-01] MEDS ORDERED: METO-333 PO (05:39)
[2023-03-01] MEDS ORDERED: WRF1T PO (05:39)
[2023-03-01] MEDS ORDERED: SPIR100T4 PO (05:39)
[2023-03-01] MEDS ORDERED: ONDA4TAB11 PO (05:39)
[2023-03-01] MEDS ORDERED: MICO90PO TOP (05:39)
[2023-03-01] MEDS ORDERED: PANT40TA52 PO (05:39)
--- NOTE | 2023-03-01 05:39 | Discharge Summary ---
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 Morbid obesity Bacteremia completing Keflex AF w/recent RVR on Coumadin Recurrent DVT so on Coumadin long-term DM insulin dependent HTN LIZBETH on CPAP DAVID recently CKD creat 2.8 DUB ordered USG 02/18/23 revealing abnormal endometrium thickening will consult [employer] Hyperkalemia-ordered one dose Kayexelate Plan: PT OT Home meds CPAP to be brought in Insulin 02/15/2023: Monitor closely Labs reviewed Chronic hypotension due to CLD 02/16/2023: Monitor closely Fall risk 02/17/2023: Monitor closely Check TV USG tomorrow 02/18/2023: TVUSG Send copies of labs to [facility]at[facility] [place] 02/19/2023: Evaluate progress tomorrow Patient will not leave AMA today 02/20/2023: Continue to encourage If apathy continues she may need hospice 02/21/2023: Improved overall Increase therapies 02/22/2023: Monitor closely Check labs in morning 02/23/2023: Monitor INR and potassium and creat 02/24/2023: Monitor labs closely 02/25/2023: Monitor creat 02/26/2023: Check labs tomorrow Much improved 02/27/2023: INR tomorrow Hold Coumadin Vaginal bleeding still present Will speak to PCP Toshia Amos tomorrow since clinic closed today [facility] rescheduled for 02/28/2023: No issues DC tomorrow (1) Hepatic encephalopathy Discharge Summary Discharge Physical Examination Allergies: Coded Allergies: No Known Allergies (Verified Allergy, Unknown, 02/19/23) Vitals & I&Os Vital Signs Date Time Temp Pulse Resp B/P (MAP) Pulse Ox O2 Delivery O2 Flow Rate FiO2 03/01/23 09:00 Room Air 03/01/23 08:00 36.7 56 18 77/50 (59) 95 General Appearance: Alert, Oriented X3, Cooperative Respiratory: Clear to Auscultation Cardiovascular: Regular Rate Psych/Mental Status: Mental Status NL Hospital Course Was the Problem List Reviewed?: Yes Hospital course: patient had a lengthy course following hepatic encephalopathy hospital stay at [place]. ESLD was monitored with labs and INR managed with holding dose and adjusting dose. Hepatorenal syndrome was noted. Motivation was an issue until half the course completed but then she participated and was able to get back to baseline and DC to . [facility] appt scheduled and Dr Barragan scheduled for DUB. Labs (last 24 hrs) Laboratory Tests 02/14/23 17:28: Glucometer 204H 02/14/23 20:31: Glucometer 210H 02/15/23 05:20: White Blood Count 4.0L, Red Blood Count 2.22L, Hemoglobin 8.5L, Hematocrit 25L, Mean Corpuscular Volume 112H, Mean Corpuscular Hemoglobin 38H, Mean Corpuscular Hemoglobin Concent 34, Red Cell Distribution Width 19.0H, Platelet Count 37*L, Mean Platelet Volume 11.3, Immature Granulocyte % (Auto) 1, Neutrophils (%) (Auto) 65, Lymphocytes (%) (Auto) 20, Monocytes (%) (Auto) 11, Eosinophils (%) (Auto) 3, Basophils (%) (Auto) 1, Neutrophils # (Auto) 2.6, Lymphocytes # (Auto) 0.8L, Monocytes # (Auto) 0.4, Eosinophils # (Auto) 0.1, Basophils # (Auto) 0.0, Immature Granulocyte # (Auto) 0.0, Percent Immature Platelet Fraction 3.3, Prothrombin Time 27.7H, INR Comment 2.5H, Sodium Level 128L, Potassium Level 4.2, Chloride Level 101, Carbon Dioxide Level 16L, Anion Gap 11, Blood Urea Nitrogen 56H, Creatinine 2.04H, Estimat Glomerular Filtration Rate 29, BUN/Creatinine Ratio 27, Glucose Level 194H, Mean Blood Glucose 126, Hemoglobin A1c 6.0H, Calcium Level 9.5, Corrected Calcium 10.5H, Iron Level 126, Total Bilirubin 10.2H, Aspartate Amino Transf (AST/SGOT) 45H, Alanine Aminotransferase (ALT/SGPT) 24, Alkaline Phosphatase 118, Ammonia 44H, Total Protein 5.5L, Albumin 2.8L, Vitamin B12 Level >2000H, Thyroid Stimulating Hormone (TSH) 0.96, Smear Scan YES 02/15/23 10:49: Glucometer 201H 02/15/23 15:33: Glucometer 212H 02/15/23 20:43: Glucometer 201H 02/16/23 05:35: Glucometer 182H 02/16/23 11:04: Glucometer 203H 02/16/23 15:59: Glucometer 211H 02/16/23 20:59: Glucometer 187H 02/17/23 05:21: Glucometer 190H 02/17/23 11:20: Glucometer 218H 02/17/23 16:19: Glucometer 250H 02/17/23 20:45: Glucometer 226H 02/18/23 05:18: White Blood Count 2.6L, Red Blood Count 2.18L, Hemoglobin 8.3L, Hematocrit 24L, Mean Corpuscular Volume 112H, Mean Corpuscular Hemoglobin 38H, Mean Corpuscular Hemoglobin Concent 34, Red Cell Distribution Width 19.7H, Platelet Count 30*L, Mean Platelet Volume 10.8, Immature Granulocyte % (Auto) 2, Neutrophils (%) (Auto) 53, Lymphocytes (%) (Auto) 27, Monocytes (%) (Auto) 14H, Eosinophils (%) (Auto) 4, Basophils (%) (Auto) 1, Neutrophils # (Auto) 1.4L, Lymphocytes # (Auto) 0.7L, Monocytes # (Auto) 0.4, Eosinophils # (Auto) 0.1, Basophils # (Auto) 0.0, Immature Granulocyte # (Auto) 0.0, Percent Immature Platelet Fraction 3.5, Prothrombin Time 29.4H, INR Comment 2.7H, Sodium Level 126L, Potassium Level 5.0, Chloride Level 99, Carbon Dioxide Level 16L, Anion Gap 11, Blood Urea Nitrogen 67H, Creatinine 2.71#H, Estimat Glomerular Filtration Rate 20, BUN/Creatinine Ratio 25, Glucose Level 240H, Calcium Level 9.4, Corrected Calcium 10.4H, Total Bilirubin 10.7H, Aspartate Amino Transf (AST/SGOT) 47H, Alanine Aminotransferase (ALT/SGPT) 25, Alkaline Phosphatase 129, Total Protein 5.8L, Albumin 2.7L 02/18/23 11:02: Glucometer 241H 02/18/23 15:33: Glucometer 236H 02/18/23 20:27: Glucometer 255H 02/19/23 05:53: Glucometer 211H 02/19/23 10:49: Glucometer 199H 02/19/23 15:48: Glucometer 225H 02/19/23 20:30: Glucometer 208H 02/20/23 05:52: Glucometer 172H 02/20/23 11:05: Glucometer 214H 02/20/23 15:14: Glucometer 196H 02/20/23 21:24: Glucometer 194H 02/21/23 06:29: Glucometer 159H 02/21/23 10:26: Glucometer 175H 02/21/23 15:43: Glucometer 169H 02/21/23 20:45: Glucometer 147H 02/22/23 06:45: Glucometer 160H 02/22/23 10:54: Glucometer 156H 02/22/23 15:33: Glucometer 176H 02/22/23 20:38: Glucometer 158H 02/23/23 05:31: Glucometer 131H 02/23/23 06:40: White Blood Count 3.0L, Red Blood Count 2.29L, Hemoglobin 8.7L, Hematocrit 26L, Mean Corpuscular Volume 112H, Mean Corpuscular Hemoglobin 38H, Mean Corpuscular Hemoglobin Concent 34, Red Cell Distribution Width 19.8H, Platelet Count 44L, Mean Platelet Volume 11.4, Immature Granulocyte % (Auto) 2, Neutrophils (%) (Auto) 47, Lymphocytes (%) (Auto) 29, Monocytes (%) (Auto) 17H, Eosinophils (%) (Auto) 4, Basophils (%) (Auto) 1, Neutrophils # (Auto) 1.4L, Lymphocytes # (Auto) 0.9L, Monocytes # (Auto) 0.5, Eosinophils # (Auto) 0.1, Basophils # (Auto) 0.0, Immature Granulocyte # (Auto) 0.1, Percent Immature Platelet F raction 4.2, Prothrombin Time 38.2H, INR Comment 3.9H, Sodium Level 129L, Potassium Level 5.5H, Chloride Level 99, Carbon Dioxide Level 19L, Anion Gap 11, Blood Urea Nitrogen 67H, Creatinine 2.83H, Estimat Glomerular Filtration Rate 19, BUN/Creatinine Ratio 24, Glucose Level 127H, Calcium Level 8.9, Corrected Calcium 9.9, Total Bilirubin 8.0H, Aspartate Amino Transf (AST/SGOT) 65H, Alanine Aminotransferase (ALT/SGPT) 33, Alkaline Phosphatase 136, Total Protein 6.0L, Albumin 2.8L 02/23/23 10:48: Glucometer 179H 02/23/23 16:47: Glucometer 163H 02/23/23 20:31: Glucometer 142H 02/24/23 05:28: Glucometer 111H 02/24/23 10:48: Glucometer 149H 02/24/23 16:35: Glucometer 132H 02/24/23 21:00: Glucometer 153H 02/25/23 05:03: White Blood Count 2.8L, Red Blood Count 2.11L, Hemoglobin 8.1L, Hematocrit 24L, Mean Corpuscular Volume 111H, Mean Corpuscular Hemoglobin 38H, Mean Corpuscular Hemoglobin Concent 35, Red Cell Distribution Width 19.2H, Platelet Count 46L, Mean Platelet Volume 11.6, Immature Granulocyte % (Auto) 1, Neutrophils (%) (Auto) 46, Lymphocytes (%) (Auto) 33, Monocytes (%) (Auto) 16H, Eosinophils (%) (Auto) 3, Basophils (%) (Auto) 1, Neutrophils # (Auto) 1.3L, Lymphocytes # (Auto) 0.9L, Monocytes # (Auto) 0.4, Eosinophils # (Auto) 0.1, Basophils # (Auto) 0.0, Immature Granulocyte # (Auto) 0.0, Percent Immature Platelet Frac tion 4.4, Prothrombin Time 37.6H, INR Comment 3.8H, Sodium Level 128L, Potassium Level 5.0, Chloride Level 99, Carbon Dioxide Level 18L, Anion Gap 11, Blood Urea Nitrogen 68H, Creatinine 2.81H, Estimat Glomerular Filtration Rate 19, BUN/Creatinine Ratio 24, Glucose Level 122H, Calcium Level 8.7, Corrected Calcium 9.7, Total Bilirubin 7.2H, Aspartate Amino Transf (AST/SGOT) 63H, Alanine Aminotransferase (ALT/SGPT) 31, Alkaline Phosphatase 118, Total Protein 5.8L, Albumin 2.7L 02/25/23 11:11: Glucometer 172H 02/25/23 20:57: Glucometer 159H 02/26/23 06:39: Glucometer 170H 02/26/23 10:54: Glucometer 170H 02/26/23 17:29: Glucometer 166H 02/26/23 20:26: Glucometer 170H 02/27/23 05:31: White Blood Count 2.6L, Red Blood Count 2.04L, Hemoglobin 7.7L, Hematocrit 23L, Mean Corpuscular Volume 111H, Mean Corpuscular Hemoglobin 38H, Mean Corpuscular Hemoglobin Concent 34, Red Cell Distribution Width 19.1H, Platelet Count 49L, Mean Platelet Volume 11.7, Immature Granulocyte % (Auto) 2, Neutrophils (%) (Auto) 52, Lymphocytes (%) (Auto) 27, Monocytes (%) (Auto) 15H, Eosinophils (%) (Auto) 3, Basophils (%) (Auto) 1, Neutrophils # (Auto) 1.4L, Lymphocytes # (Auto) 0.7L, Monocytes # (Auto) 0.4, Eosinophils # (Auto) 0.1, Basophils # (Aut o) 0.0, Immature Granulocyte # (Auto) 0.1, Percent Immature Platelet Fraction 4.2, Prothrombin Time 32.2H, INR Comment 3.1H, Sodium Level 132L, Potassium Level 4.9, Chloride Level 100, Carbon Dioxide Level 23, Anion Gap 9, Blood Urea Nitrogen 61H, Creatinine 2.41H, Estimat Glomerular Filtration Rate 23, BUN/Creatinine Ratio 25, Glucose Level 137H, Calcium Level 8.8, Corrected Calcium 9.8, Total Bilirubin 7.8H, Aspartate Amino Transf (AST/SGOT) 62H, Alanine Aminotransferase (ALT/SGPT) 30, Alkaline Phosphatase 113, Total Protein 5.5L, Albumin 2.7L 02/27/23 10:45: Glucometer 162H 02/27/23 15:10: Glucometer 195H 02/27/23 20:19: Glucometer 136H 02/28/23 05:17: Glucometer 105 02/28/23 05:28: Prothrombin Time 29.9H, INR Comment 2.8H 02/28/23 11:35: Glucometer 136H 02/28/23 15:16: Glucometer 135H 02/28/23 20:25: Glucometer 157H 03/01/23 06:12: Glucometer 99 Pending Labs Laboratory Tests 02/14/23 17:28: Glucometer 204 02/14/23 20:31: Glucometer 210 02/15/23 05:20: White Blood Count 4.0, Red Blood Count 2.22, Hemoglobin 8.5, Hematocrit 25, Mean Corpuscular Volume 112, Mean Corpuscular Hemoglobin 38, Mean Corpuscular Hemoglobin Concent 34, Red Cell Distribution Width 19.0, Platelet Count 37, Mean Platelet Volume 11.3, Immature Granulocyte % (Auto) 1, Neutrophils (%) (Auto) 65, Lymphocytes (%) (Auto) 20, Monocytes (%) (Auto) 11, Eosinophils (%) (Auto) 3, Basophils (%) (Auto) 1, Neutrophils # (Auto) 2.6, Lymphocytes # (Auto) 0.8, Monocytes # (Auto) 0.4, Eosinophils # (Auto) 0.1, Basophils # (Auto) 0.0, Immature Granulocyte # (Auto) 0.0, Percent Immature Platelet Fraction 3.3, Prothrombin Time 27.7, INR Comment 2.5, Sodium Level 128, Potassium Level 4.2, Chloride Level 101, Carbon Dioxide Level 16, Anion Gap 11, Blood Urea Nitrogen 56, Creatinine 2.04, Estimat Glomerular Filtration Rate 29, BUN/Creatinine Ratio 27, Glucose Level 194, Mean Blood Glucose 126, Hemoglobin A1c 6.0, Calcium Level 9.5, Corrected Calcium 10.5, Iron Level 126, Total Bilirubin 10.2, Aspartate Amino Transf (AST/SGOT) 45, Alanine Aminotransferase (ALT/SGPT) 24, Alkaline Phosphatase 118, Ammonia 44, Total Protein 5.5, Albumin 2.8, Vitamin B12 Level >2000, Thyroid Stimulating Hormone (TSH) 0.96, Smear Scan YES 02/15/23 10:49: Glucometer 201 02/15/23 15:33: Glucometer 212 02/15/23 20:43: Glucometer 201 02/16/23 05:35: Glucometer 182 02/16/23 11:04: Glucometer 203 02/16/23 15:59: Glucometer 211 02/16/23 20:59: Glucometer 187 02/17/23 05:21: Glucometer 190 02/17/23 11:20: Glucometer 218 02/17/23 16:19: Glucometer 250 02/17/23 20:45: Glucometer 226 02/18/23 05:18: White Blood Count 2.6, Red Blood Count 2.18, Hemoglobin 8.3, Hematocrit 24, Mean Corpuscular Volume 112, Mean Corpuscular Hemoglobin 38, Mean Corpuscular Hemoglobin Concent 34, Red Cell Distribution Width 19.7, Platelet Count 30, Mean Platelet Volume 10.8, Immature Granulocyte % (Auto) 2, Neutrophils (%) (Auto) 53, Lymphocytes (%) (Auto) 27, Monocytes (%) (Auto) 14, Eosinophils (%) (Auto) 4, Basophils (%) (Auto) 1, Neutrophils # (Auto) 1.4, Lymphocytes # (Auto) 0.7, Monocytes # (Auto) 0.4, Eosinophils # (Auto) 0.1, Basophils # (Auto) 0.0, Immature Granulocyte # (Auto) 0.0, Percent Immature Platelet Fraction 3.5, Prothrombin Time 29.4, INR Comment 2.7, Sodium Level 126, Potassium Level 5.0, Chloride Level 99, Carbon Dioxide Level 16, Anion Gap 11, Blood Urea Nitrogen 67, Creatinine 2.71, Estimat Glomerular Filtration Rate 20, BUN/Creatinine Ratio 25, Glucose Level 240, Calcium Level 9.4, Corrected Calcium 10.4, Total Bilirubin 10.7, Aspartate Amino Transf (AST/SGOT) 47, Alanine Aminotransferase (ALT/SGPT) 25, Alkaline Phosphatase 129, Total Protein 5.8, Albumin 2.7 02/18/23 11:02: Glucometer 241 02/18/23 15:33: Glucometer 236 02/18/23 20:27: Glucometer 255 02/19/23 05:53: Glucometer 211 02/19/23 10:49: Glucometer 199 02/19/23 15:48: Glucometer 225 02/19/23 20:30: Glucometer 208 02/20/23 05:52: Glucometer 172 02/20/23 11:05: Glucometer 214 02/20/23 15:14: Glucometer 196 02/20/23 21:24: Glucometer 194 02/21/23 06:29: Glucometer 159 02/21/23 10:26: Glucometer 175 02/21/23 15:43: Glucometer 169 02/21/23 20:45: Glucometer 147 02/22/23 06:45: Glucometer 160 02/22/23 10:54: Glucometer 156 02/22/23 15:33: Glucometer 176 02/22/23 20:38: Glucometer 158 02/23/23 05:31: Glucometer 131 02/23/23 06:40: White Blood Count 3.0, Red Blood Count 2.29, Hemoglobin 8.7, Hematocrit 26, Mean Corpuscular Volume 112, Mean Corpuscular Hemoglobin 38, Mean Corpuscular Hemoglobin Concent 34, Red Cell Distribution Width 19.8, Platelet Count 44, Mean Platelet Volume 11.4, Immature Granulocyte % (Auto) 2, Neutrophils (%) (Auto) 47, Lymphocytes (%) (Auto) 29, Monocytes (%) (Auto) 17, Eosinophils (%) (Auto) 4, Basophils (%) (Auto) 1, Neutrophils # (Auto) 1.4, Lymphocytes # (Auto) 0.9, Monocytes # (Auto) 0.5, Eosinophils # (Auto) 0.1, Basophils # (Auto) 0.0, Immature Granulocyte # (Auto) 0.1, Percent Immature Platelet Fraction 4.2, Prothrombin Time 38.2, INR Comment 3.9, Sodium Level 129, Potassium Level 5.5, Chloride Level 99, Carbon Dioxide Level 19, Anion Gap 11, Blood Urea Nitrogen 67, Creatinine 2.83, Estimat Glomerular Filtration Rate 19, BUN/Creatinine Ratio 24, Glucose Level 127, Calcium Level 8.9, Corrected Calcium 9.9, Total Bilirubin 8.0, Aspartate Amino Transf (AST/SGOT) 65, Alanine Aminotransferase (ALT/SGPT) 33, Alkaline Phosphatase 136, Total Protein 6.0, Albumin 2.8 02/23/23 10:48: Glucometer 179 02/23/23 16:47: Glucometer 163 02/23/23 20:31: Glucometer 142 02/24/23 05:28: Glucometer 111 02/24/23 10:48: Glucometer 149 02/24/23 16:35: Glucometer 132 02/24/23 21:00: Glucometer 153 02/25/23 05:03: White Blood Count 2.8, Red Blood Count 2.11, Hemoglobin 8.1, Hematocrit 24, Mean Corpuscular Volume 111, Mean Corpuscular Hemoglobin 38, Mean Corpuscular Hemoglobin Concent 35, Red Cell Distribution Width 19.2, Platelet Count 46, Mean Platelet Volume 11.6, Immature Granulocyte % (Auto) 1, Neutrophils (%) (Auto) 46, Lymphocytes (%) (Auto) 33, Monocytes (%) (Auto) 16, Eosinophils (%) (Auto) 3, Basophils (%) (Auto) 1, Neutrophils # (Auto) 1.3, Lymphocytes # (Auto) 0.9, Monocytes # (Auto) 0.4, Eosinophils # (Auto) 0.1, Basophils # (Auto) 0.0, Immature Granulocyte # (Auto) 0.0, Percent Immature Platelet Fraction 4.4, Prothrombin Time 37.6, INR Comment 3.8, Sodium Level 128, Potassium Level 5.0, Chloride Level 99, Carbon Dioxide Level 18, Anion Gap 11, Blood Urea Nitrogen 68, Creatinine 2.81, Estimat Glomerular Filtration Rate 19, BUN/Creatinine Ratio 24, Glucose Level 122, Calcium Level 8.7, Corrected Calcium 9.7, Total Bilirubin 7.2, Aspartate Amino Transf (AST/SGOT) 63, Alanine Aminotransferase (ALT/SGPT) 31, Alkaline Phosphatase 118, Total Protein 5.8, Albumin 2.7 02/25/23 11:11: Glucometer 172 02/25/23 20:57: Glucometer 159 02/26/23 06:39: Glucometer 170 02/26/23 10:54: Glucometer 170 02/26/23 17:29: Glucometer 166 02/26/23 20:26: Glucometer 170 02/27/23 05:31: White Blood Count 2.6, Red Blood Count 2.04, Hemoglobin 7.7, Hematocrit 23, Mean Corpuscular Volume 111, Mean Corpuscular Hemoglobin 38, Mean Corpuscular Hemoglobin Concent 34, Red Cell Distribution Width 19.1, Platelet Count 49, Mean Platelet Volume 11.7, Immature Granulocyte % (Auto) 2, Neutrophils (%) (Auto) 52, Lymphocytes (%) (Auto) 27, Monocytes (%) (Auto) 15, Eosinophils (%) (Auto) 3, Basophils (%) (Auto) 1, Neutrophils # (Auto) 1.4, Lymphocytes # (Auto) 0.7, Monocytes # (Auto) 0.4, Eosinophils # (Auto) 0.1, Basophils # (Auto) 0.0, Immature Granulocyte # (Auto) 0.1, Percent Immature Platelet Fraction 4.2, Prothrombin Time 32.2, INR Comment 3.1, Sodium Level 132, Potassium Level 4.9, Chloride Level 100, Carbon Dioxide Level 23, Anion Gap 9, Blood Urea Nitrogen 61, Creatinine 2.41, Estimat Glomerular Filtration Rate 23, BUN/Creatinine Ratio 25, Glucose Level 137, Calcium Level 8.8, Corrected Calcium 9.8, Total Bilirubin 7.8, Aspartate Amino Transf (AST/SGOT) 62, Alanine Aminotransferase (ALT/SGPT) 30, Alkaline Phosphatase 113, Total Protein 5.5, Albumin 2.7 02/27/23 10:45: Glucometer 162 02/27/23 15:10: Glucometer 195 02/27/23 20:19: Glucometer 136 02/28/23 05:17: Glucometer 105 02/28/23 05:28: Prothrombin Time 29.9, INR Comment 2.8 02/28/23 11:35: Glucometer 136 02/28/23 15:16: Glucometer 135 02/28/23 20:25: Glucometer 157 03/01/23 06:12: Glucometer 99 Discharge Home Medications: Active Scripts Active Lotrimin AF (Miconazole Nitrate) 2 % Powder 0 Gm TOP BID twice daily Pantoprazole Sodium 40 Mg Tablet.dr 40 Mg PO DAILY@0600 Ondansetron Odt (Ondansetron) 4 Mg Tab.rapdis 4 Mg PO Q6H PRN Bumetanide 1 Mg Tablet 1 Mg PO DAILY Spironolactone 100 Mg Tablet 150 Mg PO DAILY Metoprolol Tartrate 25 Mg Tablet 12.5 Mg PO BID Warfarin Sodium 1 Mg Tablet 1 Mg PO DAILY@1800 7 Days confer with PCP for dosing changes Midodrine HCl 10 Mg Tablet 10 Mg PO TID Xifaxan (Rifaximin) 550 Mg Tablet 550 Mg PO Q12H Fiasp 100 Unit/ml Flextouch (Insulin Aspart (Niacinamide)) 100 Unit/Ml (3 Ml) Insuln.pen 6 Units SC AC 7 Days Levemir (Insulin Determir) 100 Unit/Ml Soln 20 Units SQ HS 7 Days Reported Levothyroxine Sodium 112 Mcg Tablet 112 Mcg PO DAILY Trulicity (Dulaglutide) 3 Mg/0.5 Ml Pen.injctr 3 Mg SQ WEEK Lactulose 20 Gram/30 Ml Solution 30 Ml PO DAILY TITRATE TO HAVE 2-3 BM DAILY Citalopram HBr (Citalopram Hydrobromide) 20 Mg Tablet 20 Mg PO DAILY Tylenol 8 Hour (Acetaminophen) 650 Mg Tablet.er 650 Mg PO Q6H PRN Instructions to patient/family Please see electronic discharge instructions given to patient. Diagnosis/Problems Diagnosis/Problems (1) Hepatic encephalopathy LUCY LANG DO Mar 01, 2023 05:39
[2023-03-01] MEDS: PANTOPRAZOLE 40 MG (PROTONIX) TAB PO SCH (06:56)
[2023-03-01] MEDS: LEVOTHYROXINE 112 MCG (LEVOTHROID) TAB PO SCH (06:56)
[2023-03-01] MEDS: inSUlin ASPART (NovoLOG) 1 UNIT/0.01 ML (CHARGE PER UNIT) SQ SCH (06:57)
[2023-03-01 08:00] VITALS: BP 77/50
[2023-03-01] MEDS: BUMETANIDE 1 MG (BUMEX) TAB PO SCH (09:23)
[2023-03-01] MEDS: HYPOCHLOROUS ACID/NaCl (VASHE) 250 ML IR SCH (09:23)
[2023-03-01] MEDS: RIFAXIMIN 550 MG TABLET (XIFAXAN) PO SCH (09:23)
[2023-03-01] MEDS: SPIRONOLACTONE 100 MG (ALDACTONE) TABLET PO SCH (09:24)
[2023-03-01] MEDS: MIDODRINE 10 MG (PROAMATINE) TAB PO SCH (09:24)
[2023-03-01] MEDS: meTOprolol TARTRATE 25 MG (LOPRESSOR) TABLET PO SCH (09:24)
[2023-03-01] MEDS: MICONAZOLE 2% POWDER (DESENEX AF) 90 GM TOP SCH (09:25)
[2023-03-01] MEDS: DOCUSATE SODIUM 100 MG (COLACE) CAP PO SCH (09:49)
[2023-03-01] MEDS: polyethylene glycoL POWDER 17 GM (MIRALAX) PACK PO SCH (09:49)
[2023-03-01] MEDS: SENNA W/DOCUSATE (SENOKOT S) TABLET PO SCH (09:49)
--- NOTE | 2023-03-01 13:50 | Therapy Team Discharge Summary ---
Therapy Discharge Summary Discharge Recommendations Date of Discharge Mar 01, 2023 at 11:41 Physical Therapy Roll Left to Right (QC): 6 Sit to Lying (QC): 6 Lying to Sitting/Side of Bed(Q: 6 Sit to Stand (QC): 6 Chair/[id number]-Hyroz Xfer(QC): 6 Toilet Transfer (QC): 5 Car Transfer (QC): 5 Does the Patient Walk: Yes Mode of Locomotion: Both Walk 10 feet (QC): 6 Walk 50 ft with 2 Turns(QC): 6 Walk 150 ft (QC): 9 Walking 10ft on uneven surface: 4 Distance: 20', 36' Gait Assistive Device: FWW Does the Pt Use a Wheelchair: No Wheel 50 ft with 2 turns (QC): 9 Wheel 150 ft (QC): 9 Type of Wheelchair: Manual #of Steps: 1 1 Step (curb) (QC): 4 4 Steps (QC): 9 12 Steps (QC): 9 Walking Assistive Device: Walker Balance Sitting Static: Good Balance Sitting Dynamic: Good Balance-Standing Static: Fair Picking up an Object (QC): 6 Occupational Therapy Pt admitted to ARU with hepatic encephalopathy. At [facility], pt was independent with ADLs and functional mobility without AD. At [facility], pt required set up with eating and oral care, min A UE dressing and total assist with LE dressing, showering, footwear and toileting. OT tx focused on increasing BUE Strength and activity tolerance, and increasing safety and independence with ADLs and functional mobility. Pt made good progress towards goals, attaining IND level with all ADLs. Pt discharged from facility, d/c from OT. Decreased Activ Tolerance, Impaired Self-Care Skills Eating (QC): 6 Oral Hygiene (QC): 6 Shower/Bathe Self (QC): 6 Upper Body Dressing (QC): 6 Lower Body Dressing (QC): 6 On/Off Footwear (QC): 6 Toileting Hygiene (QC): 6 PT Detention Goals Die Drawing Checker Goals PT Detention Goals Time Frame: Mar 08, 2023 Roll Left to Right (QC): 6 Sit to Lying (QC): 6 Lying-Sitting on Side/Bed(QC): 6 Sit to Stand (QC): 6 Chair/[id number]-Pnubq Xfer(QC): 6 Toilet/Commode Transfer (QC): 6 Car Transfer (QC): 5 Does the Patient Walk: Yes Walk 10 feet (QC): 6 Walk 10ft-Uneven Surface(QC): 6 Walk 50ft with 2 Turns (QC): 6 Walk 150 ft (QC): 4 Does the Pt use WC or Scooter?: Yes Wheel 50 feet with 2 turns (QC: 6 Type: Manual Wheel 150 feet: 6 1 Step (curb) (QC): 6 4 Steps (QC): 4 12 Steps (QC): 9 Picking up an Object (QC): 5 OT Die Drawing Checker Goals Detention Goals Time Frame: Mar 15, 2023 Acute change in mental status: 0 Inattention: 0 Disorganized thinkin Altered level of consciousness: 0 Eating (QC): 6 (met) Oral Hygiene (QC): 6 (met) Toileting Hygiene (QC): 6 (met) Shower/Bathe Self (QC): 6 (met) Upper Body Dressing (QC): 6 (met) Lower Body Dressing (QC): 6 (emt) On/Off Footwear (QC): 6 (met) Additional Goals: 1-Demonstrate ADL Tasks, 2-Verbalize Understanding, 3- ImproveStrength/Josie 1=Demonstrate adherence to instructed precautions during ADL tasks. 2=Patient will verbalize/demonstrate understanding of assistive devices/modifications for ADL. 3=Patient will improve strength/tolerance for activity to enable patient to perform ADL's. KEELY WILLIAMSON OT Mar 01, 2023 13:50
--- NOTE | 2023-03-04 11:49 | Therapy Team Discharge Summary ---
Therapy Discharge Summary Discharge Recommendations Date of Discharge Mar 01, 2023 at 11:41 Physical Therapy Patient admitted to ARU for dx of hepatic encephalopathy and end stage liver disease(on transplant list). At time of D/C, patient was (I) with rolling and all transfers sit<>stand, toilet, w/c<>bed transfers using a FWW. She was set- up/SBA for car transfers using a FWW. She was able to walk 10 and 50' (I) with FWW, and was able to walk up to 125' with FWW CGA due to fatigue. She was able to ascend/descend a curb step using a FWW CGA. She was able to pick an item up off the floor with the use of a chief engineer production (I) while in standing with a walker. She had a HEP for continued LE ex at home. Roll Left to Right (QC): 6 Sit to Lying (QC): 6 Lying to Sitting/Side of Bed(Q: 6 Sit to Stand (QC): 6 Chair/Xil-fa-Ipfcz Xfer(QC): 6 Toilet Transfer (QC): 5 Car Transfer (QC): 5 Does the Patient Walk: Yes Mode of Locomotion: Both Walk 10 feet (QC): 6 Walk 50 ft with 2 Turns(QC): 6 Walk 150 ft (QC): 9 Walking 10ft on uneven surface: 4 Distance: up to 125' Gait Assistive Device: FWW Does the Pt Use a Wheelchair: No Wheel 50 ft with 2 turns (QC): 9 Wheel 150 ft (QC): 9 Type of Wheelchair: Manual #of Steps: 1 1 Step (curb) (QC): 4 4 Steps (QC): 9 12 Steps (QC): 9 Walking Assistive Device: Walker Balance Sitting Static: Good Balance Sitting Dynamic: Good Balance-Standing Static: Fair Picking up an Object (QC): 6 Occupational Therapy Decreased Activ Tolerance, Impaired Self-Care Skills Eating (QC): 6 Oral Hygiene (QC): 6 Shower/Bathe Self (QC): 6 Upper Body Dressing (QC): 6 Lower Body Dressing (QC): 6 On/Off Footwear (QC): 6 Toileting Hygiene (QC): 6 PT Senior Living Goals Senior Living Goals PT Group Account Director Goals Time Frame: Mar 08, 2023 Roll Left to Right (QC): 6 Sit to Lying (QC): 6 Lying-Sitting on Side/Bed(QC): 6 Sit to Stand (QC): 6 Chair/Ihb-du-Trgtm Xfer(QC): 6 Toilet/Commode Transfer (QC): 6 Car Transfer (QC): 5 Does the Patient Walk: Yes Walk 10 feet (QC): 6 Walk 10ft-Uneven Surface(QC): 6 Walk 50ft with 2 Turns (QC): 6 Walk 150 ft (QC): 4 Does the Pt use WC or Scooter?: Yes Wheel 50 feet with 2 turns (QC: 6 Type: Manual Wheel 150 feet: 6 1 Step (curb) (QC): 6 4 Steps (QC): 4 12 Steps (QC): 9 Picking up an Object (QC): 5 OT Senior Living Goals Senior Living Goals Time Frame: Mar 15, 2023 Acute change in mental status: 0 Inattention: 0 Disorganized thinkin Altered level of consciousness: 0 Eating (QC): 6 (met) Oral Hygiene (QC): 6 (met) Toileting Hygiene (QC): 6 (met) Shower/Bathe Self (QC): 6 (met) Upper Body Dressing (QC): 6 (met) Lower Body Dressing (QC): 6 (emt) On/Off Footwear (QC): 6 (met) Additional Goals: 1-Demonstrate ADL Tasks, 2-Verbalize Understanding, 3- ImproveStrength/Josie 1=Demonstrate adherence to instructed precautions during ADL tasks. 2=Patient will verbalize/demonstrate understanding of assistive devices/modifications for ADL. 3=Patient will improve strength/tolerance for activity to enable patient to perform ADL's. Sybil Perez PT Mar 04, 2023 11:49
== END 2023-03-01 11:41 | disposition home or self-care (01) | DRG 442 ==
PROVIDERS: ADMIT Internal Medicine; ATTEND Internal Medicine
DX: K76.82 Hepatic encephalopathy (principal); R78.81 Bacteremia; Z68.44 Body mass index [BMI] 60.0-69.9, adult; K72.10 Chronic hepatic failure without coma; I48.91 Unspecified atrial fibrillation; K75.81 Nonalcoholic steatohepatitis (NASH); K74.60 Unspecified cirrhosis of liver; G47.33 Obstructive sleep apnea (adult) (pediatric); E78.00 Pure hypercholesterolemia, unspecified; M19.90 Unspecified osteoarthritis, unspecified site; E66.01 Morbid (severe) obesity due to excess calories; I95.89 Other hypotension; I12.9 Hypertensive chronic kidney disease with stage 1 through stage 4 chronic kidney disease, or unspecified chronic kidney disease; N18.9 Chronic kidney disease, unspecified; E11.22 Type 2 diabetes mellitus with diabetic chronic kidney disease; N93.8 Other specified abnormal uterine and vaginal bleeding; R93.89 Abnormal findings on diagnostic imaging of other specified body structures; D50.0 Iron deficiency anemia secondary to blood loss (chronic); D69.6 Thrombocytopenia, unspecified; E87.5 Hyperkalemia; Z86.711 Personal history of pulmonary embolism; Z79.01 Long term (current) use of anticoagulants; Z79.4 Long term (current) use of insulin; Z79.899 Other long term (current) drug therapy
CPT/HCPCS: 36415; 76830; 76856; 80053; 82140; 82607; 82947; 83036; 83540; 84443; 85025; 85027; 85610